=== PATIENT | male | born 1950 | race Caucasian/White ===

== ENCOUNTER → 2020-04-20 | Outpatient (CLI) | payer MEDICARE, OTHER ==
[~2020-04-20] MED LIST: ALDACTONE25 MG PO; ASPI81CH; ASPI81CH PO; ASPI81EC PO; BACL20; BACL20 PO; BETASERON; BRIM.15SO; C COMPLEX1000 M1 PO; CHOL10002 PO; CLON.5; CLON.5 PO; COLACE100 MG PO; CYAN100 PO; CYAN1000; DIPATR PO; DORZOPSO BOTHEYES; DOXY100 PO; ESCI10; ESCI10 PO; EZET10-20 PO; FENO145 PO; FENO160 PO; FENO54 PO; FERGLU300; FERR325; FLUO.1OPO BOTHEYES; FLUO.1OPSO; FURO20 PO; GEMF600; GLUC500; GLUC500 PO; GLUCHON; HYDCHL25 PO; HYDCHL50; HYOS0.375T; HYOS0.375T PO; IRBE150 PO; LATANOPROST1 GM BOTHEYES; LEVSOD100 PO; LEVSOD125 PO; LEVSOD150; LIOT25 PO; METHYLPHENIDATE10 M5 PO; METPHE20; METPHE20 PO; MINO50 PO; NEBI5 PO; OCREVUS; OMEP20ER PO; OXYC5 PO; POTCHL20ER; PROBIOTIC1 EAC1 PO; PROM25 PO; RANI150; ROSI4; TECFIDERA240 MG PO; TIMDOROPSO BOTHEYES; VALS80; VALS80 PO; VYTORIN; Vitamin D2000 UNIT PO; [UNRECOGNIZED DRUG - OTHER]; [UNRECOGNIZED DRUG - REMARK]
[2020-04-20 15:17] LABS: Appearance, Urine Clear (Clear); Bilirubin, Urine Neg (Neg); Blood, Urine Neg (Neg); Color, Urine Yellow (P-Yellow); Glucose Qualitative, Urine Neg (Neg); Ketones, Urine Neg (Neg); Leukocyte Esterase, Urine Neg (Neg); Nitrite, Urine Neg (Neg); Protein, Urine Neg (Neg); Urobilinogen, Urine NORM (Normal)
== END | disposition home or self-care (01) ==
LOC: LAB 10:15 → LAB SHORT 10:15 → LAB FUT 04-20 09:50
PROVIDERS: Internal Medicine
DX: R35.0 Frequency of micturition (principal)
CPT/HCPCS: 81003

== ENCOUNTER 2020-04-21 13:04 | Day surgery (SDC) | payer MEDICARE, OTHER ==
[~2020-04-21 13:04] MED LIST changes: -ALDACTONE25 MG PO; -C COMPLEX1000 M1 PO; -COLACE100 MG PO; -FURO20 PO; -IRBE150 PO; -METHYLPHENIDATE10 M5 PO; -OCREVUS; -OMEP20ER PO
[2020-04-21] MEDS ORDERED: ALDACTONE25 MG PO (15:08)
[2020-04-21] MEDS ORDERED: FURO20 PO (15:08)
[2020-04-21] MEDS ORDERED: IRBE150 PO (15:09)
[2020-04-21] MEDS ORDERED: METHYLPHENIDATE10 M5 PO (15:09)
[2020-04-21] MEDS ORDERED: OCREVUS (15:10)
[2020-04-21] MEDS ORDERED: OMEP20ER PO (15:11)
[2020-04-21] MEDS ORDERED: C COMPLEX1000 M1 PO (15:11)
[2020-04-21] MEDS ORDERED: COLACE100 MG PO (15:12)
--- NOTE | 2020-04-21 15:14 | NUR ---
PT VOIDED 200 ML URINE. REPORTS FREQUENCY AT NIGHT.
--- NOTE | 2020-04-21 15:20 | NUR ---
RESULTS FROM PRE AND PVR FAXED TO DR. WOODSON'S OFFICE.
[2020-04-23] MEDS ORDERED: NEBI5 PO (00:54)
[2020-04-23] MEDS ORDERED: TIMOLOL 0.5%-DO10 ML OP (00:55)
[2020-04-23] MEDS ORDERED: FAMO20 PO (00:56)
[2020-04-23] MEDS ORDERED: LATA.005SO (00:58)
[2020-04-23] MEDS ORDERED: METPHE20 PO (00:59)
[2020-04-23] MEDS ORDERED: AMLO5 PO (01:00)
[2020-04-23] MEDS ORDERED: DIAZ10 (01:01)
[2020-04-23] MEDS ORDERED: LOPE2C (01:01)
== END 2020-04-21 14:45 | disposition home or self-care (01) ==
LOC: ATC 13:04
DX: R35.0 Frequency of micturition (principal); I10 Essential (primary) hypertension; F32.9 Major depressive disorder, single episode, unspecified; R19.7 Diarrhea, unspecified; E03.9 Hypothyroidism, unspecified; E87.1 Hypo-osmolality and hyponatremia; E55.9 Vitamin D deficiency, unspecified; R73.9 Hyperglycemia, unspecified; G35 Multiple sclerosis; Z88.1 Allergy status to other antibiotic agents; Z88.8 Allergy status to other drugs, medicaments and biological substances; Z79.899 Other long term (current) drug therapy
CPT/HCPCS: 51798

== ENCOUNTER → 2020-05-03 | Outpatient (CLI) | payer MEDICARE, OTHER ==
[~2020-05-03] MED LIST changes: +ALDACTONE25 MG PO; +AMLO5 PO; +C COMPLEX1000 M1 PO; +COLACE100 MG PO; +DIAZ10; +FAMO20 PO; +FURO20 PO; +IRBE150 PO; +LATA.005SO; +LOPE2C; +METHYLPHENIDATE10 M5 PO; +OCREVUS; +OMEP20ER PO; +TIMOLOL 0.5%-DO10 ML OP
[2020-05-03 17:14] LABS: Anion Gap 5 mmol/L (6-16); Blood Urea Nitrogen 21 mg/dL (8-24); Bun/Creatinine Ratio 26.9 (12.0-20.0); CO2, Blood 27 mmol/L (21-32); Calcium, Blood 9.1 mg/dL (8.5-10.1); Chloride, Blood 108 mmol/L (98-108); Creatinine, Blood 0.78 mg/dL (0.60-1.20); Glomerular Filtration Rate >60 (60-); Glucose, Blood 83 mg/dL (70-99); Potassium, Blood 4.3 mmol/L (3.5-5.5); Sodium, Blood 140 mmol/L (136-145)
== END | disposition home or self-care (01) ==
LOC: LAB 15:06 → LAB SHORT 15:06
PROVIDERS: Internal Medicine
DX: Z51.81 Encounter for therapeutic drug level monitoring (principal); Z79.899 Other long term (current) drug therapy
CPT/HCPCS: 80048

== ENCOUNTER 2020-05-24 11:32 | Inpatient (IN) | payer MEDICARE, OTHER ==
[~2020-05-24] VITALS: Ht 182.9 cm; Wt 105.3 kg
[2020-05-24] MEDS ORDERED: Aspir 8181 MG PO (12:03)
[2020-05-24] MEDS ORDERED: METPHE10 PO (12:03)
[2020-05-24] MEDS ORDERED: C COMPLEX1000 M1 PO (12:04)
[2020-05-24] MEDS ORDERED: IRBE150 PO (12:04)
[2020-05-24] MEDS ORDERED: Vitamin B Comple1 EA PO (12:06)
[2020-05-24] MEDS ORDERED: BACL20 PO (12:07)
[2020-05-24] MEDS ORDERED: NEBI10 PO (12:07)
[2020-05-24] MEDS ORDERED: Bentyl10 MG PO (12:08)
[2020-05-24] MEDS ORDERED: DOXY100 PO (12:08)
[2020-05-24] MEDS ORDERED: OMEP20ER PO (12:11)
[2020-05-24] MEDS ORDERED: FAMO20 PO (12:11)
[2020-05-24] MEDS ORDERED: FEROSUL325 M1 PO (12:13)
[2020-05-24] MEDS ORDERED: GLUCOSAMINE-CH1 EAC7 PO (12:15)
[2020-05-24] MEDS ORDERED: LIOT25 PO (12:16)
[2020-05-24] MEDS ORDERED: LEVSOD25 PO (12:16)
[2020-05-24] MEDS ORDERED: LATA.005SO BOTHEYES (12:16)
[2020-05-24] MEDS ORDERED: LEVSOD100 PO (12:18)
[2020-05-24] MEDS ORDERED: METHYLPHENIDATE20 M4 PO (12:18)
[2020-05-24] MEDS ORDERED: ESCI10 PO (12:18)
[2020-05-24] MEDS ORDERED: AMLO5 PO (12:19)
[2020-05-24] MEDS ORDERED: VITAMIN D325 MC3 PO (12:19)
[2020-05-24] MEDS ORDERED: SPIR25 PO (12:19)
[2020-05-24] MEDS ORDERED: FURO40 PO (12:19)
[2020-05-24] MEDS ORDERED: LOPE2C PO (12:21)
[2020-05-24] MEDS ORDERED: PROBIOTIC PO (12:21)
[2020-05-24] MEDS ORDERED: DIAZ10 PO (12:22)
[2020-05-24 12:30] LABS: BASOPHILS ABSOLUTE AUTO 0.14 K/mm3 (0.00-0.23); BASOPHILS PERCENT AUTO 0 % (0-2); EOSINOPHILS ABSOLUTE AUTO 0.12 K/mm3 (0.00-0.68); EOSINOPHILS PERCENT AUTO 0 % (0-6); Hematocrit 33.2 % (37.0-53.0); Hemoglobin 10.7 g/dL (13.5-17.5); IMMATURE GRAN ABSOLUTE AUTO 0.75 K/mm3 (0.00-0.10); IMMATURE GRAN PERCENT AUTO 2 % (0-1); LYMPHOCYTES ABSOLUTE AUTO 1.98 K/mm3 (0.84-5.20); LYMPHOCYTES PERCENT AUTO 5 % (21-46); MONOCYTES ABSOLUTE AUTO 4.94 K/mm3 (0.16-1.47); MONOCYTES PERCENT AUTO 13 % (4-13); Mean Corpuscular HGB 31.3 pg (26.0-34.0); Mean Corpuscular HGB Conc 32.2 g/dL (31.5-36.5); Mean Corpuscular Volume 97 fL (80-100); NEUTROPHILS ABSOLUTE AUTO 30.29 K/mm3 (1.96-9.15); NEUTROPHILS PERCENT AUTO 79 % (41-73); Platelet Count 251 K/mm3 (150-400); RDW Coefficient Variation 13.6 % (11.7-14.2); RDW Standard Deviation 48.6 fL (35.1-46.3); Red Blood Cell Count 3.42 M/mm3 (4.30-5.90); White Blood Cell Count 38.22 K/mm3 (4.00-11.30)
[2020-05-24 12:34] LABS: Source, Urine Catheter
[2020-05-24 12:42] LABS: Bilirubin, Urine Neg (Neg); Blood, Urine 1+ (Neg); Glucose Qualitative, Urine Neg (Neg); Ketones, Urine Neg (Neg); Leukocyte Esterase, Urine 2+ (Neg); Nitrite, Urine Neg (Neg); Protein, Urine Neg (Neg); Specific Gravity, Urine 1.015 (1.003-1.022); Urobilinogen, Urine NORM (Normal)
[2020-05-24 12:50] LABS: Alanine Aminotransfer (ALT/SGP 21 U/L (12-78); Albumin, Blood 3.3 g/dL (3.4-5.0); Albumin/Globulin Ratio 0.8 (0.8-1.8); Alk Phos 98 U/L (50-136); Anion Gap 7 mmol/L (6-16); Aspartate Aminotrans (AST/SGOT 11 U/L (12-37); Bilirubin, Total 0.6 mg/dL (0.1-1.0); Blood Urea Nitrogen 33 mg/dL (8-24); Bun/Creatinine Ratio 28.7 (12.0-20.0); CO2, Blood 23 mmol/L (21-32); Calcium, Blood 9.2 mg/dL (8.5-10.1); Chloride, Blood 103 mmol/L (98-108); Creatinine, Blood 1.15 mg/dL (0.60-1.20); Glomerular Filtration Rate >60 (60-); Glucose, Blood 94 mg/dL (70-99); Potassium, Blood 4.2 mmol/L (3.5-5.5); Sodium, Blood 133 mmol/L (136-145); Total Protein, Blood 7.3 g/dL (6.4-8.2)
[2020-05-24 12:53] LABS: Appearance, Urine Clear (Clear); Color, Urine Yellow (P-Yellow)
[2020-05-24 12:59] LABS: Bacteria Few /hpf; Squamous Epithelial Cells Rare /hpf (Few)
[2020-05-24] MEDS ORDERED: TIMO.25OPS BOTHEYES (13:09)
[2020-05-24] MEDS ORDERED: EZETIMIBE-SIMV1 EAC4 PO (13:17)
--- NOTE | 2020-05-24 19:16 | NUR ---
SHIFT SUMMARY: PATIENT ADMIT FROM ED THIS SHIFT. PT A&O; CALM AND COOPERATIVE WITH CARE. PT HX MS; BEDBOUND; TURN Q2H; SKIN C/D/I; REDDENED COCCYX. CHRONIC INDWELLING GUNN; CHANGED IN ED; PATENT & DRAINING. REHYDRATION & IB ABX CONTINUING. REPORT GIVEN TO ONCOMING RN.
--- NOTE | 2020-05-24 21:38 | NUR ---
PHYSICIAN NOTIFIED PHYSICIAN NOTIFIED OF PT'S HYPOTENISIVE BP READINGS OF 97/49 AND 87/51. PHYSICIAN ORDERED 1 L FLUID BOLUS OF LR.
--- NOTE | 2020-05-24 21:56 | NUR ---
PHYSICIAN NOTIFIED PHYSICIAN NOTIFIED OF PT'S HYPOTENSIVE READING AT 90/58, MAP OF 69. PHYSICIAN ORDERED TO INCREASE LR TO 125 ML/HR AND TO KEEP MAP ABOVE 65. WILL NOTIFY PHYSICIAN IF MAP FALLS BELOW 65.
[2020-05-25 05:13] LABS: BASOPHILS ABSOLUTE AUTO 0.08 K/mm3 (0.00-0.23); BASOPHILS PERCENT AUTO 0 % (0-2); EOSINOPHILS PERCENT AUTO 0 % (0-6); Hematocrit 27.7 % (37.0-53.0); Hemoglobin 9.1 g/dL (13.5-17.5); IMMATURE GRAN ABSOLUTE AUTO 0.38 K/mm3 (0.00-0.10); IMMATURE GRAN PERCENT AUTO 1 % (0-1); LYMPHOCYTES ABSOLUTE AUTO 1.49 K/mm3 (0.84-5.20); LYMPHOCYTES PERCENT AUTO 5 % (21-46); MONOCYTES ABSOLUTE AUTO 2.86 K/mm3 (0.16-1.47); MONOCYTES PERCENT AUTO 10 % (4-13); Mean Corpuscular HGB Conc 32.9 g/dL (31.5-36.5); Mean Corpuscular Volume 98 fL (80-100); Mean Platelet Volume 10.1 fL (9.1-12.4); NEUTROPHILS ABSOLUTE AUTO 25.26 K/mm3 (1.96-9.15); NEUTROPHILS PERCENT AUTO 84 % (41-73); Platelet Count 219 K/mm3 (150-400); RDW Coefficient Variation 13.6 % (11.7-14.2); RDW Standard Deviation 49.3 fL (35.1-46.3); Red Blood Cell Count 2.84 M/mm3 (4.30-5.90); White Blood Cell Count 30.17 K/mm3 (4.00-11.30)
[2020-05-25 05:46] LABS: Anion Gap 6 mmol/L (6-16); Blood Urea Nitrogen 27 mg/dL (8-24); CO2, Blood 22 mmol/L (21-32); Calcium, Blood 8.3 mg/dL (8.5-10.1); Chloride, Blood 108 mmol/L (98-108); Creatinine, Blood 0.93 mg/dL (0.60-1.20); Glomerular Filtration Rate >60 (60-); Glucose, Blood 84 mg/dL (70-99); Sodium, Blood 136 mmol/L (136-145)
--- NOTE | 2020-05-25 06:32 | NUR ---
SHIFT SUMMARY PT ALERT AND ORIENTED. PT HYPOTENSIVE T/O SHIFT. PHYSICIAN NOTIFIED. MAP MAINTAINED ABOVE 65%. HR STABLE. OXYGEN SATURATION MAINTAINED ABOVE 92% ON RA. PT TURNED Q 2 HRS. PT SLEPT T/O SHIFT. PT REPORTS NO CP OR PRESSURE. WILL CONTINUE TO MONITOR UNTIL REPORT GIVEN TO DAYSHIFT RN.
--- NOTE | 2020-05-25 16:58 | NUR ---
SHIFT SUMMARY PT A&Ox4; CALM AND COOPERATIVE WITH CARE. PT RESTING IN BED DURING SHIFT. ENCOURAGED PT TO DO LEG LIFTS AND ELVATED BLE IN BED. PT DENIES PAIN, CHEST PAIN, SOB, NAUSEA AND DIZZINESS. PT RECEIVING IV ANTIBIOTICS. BP STABLE, OTHER VSS. NO OTHER ACUTE CHANGES NOTED. WILL COTNINUE TO MONITOR UNTIL REPORT GIVEN TO ONCOMING RN.
--- NOTE | 2020-05-26 05:44 | NUR ---
SHIFT SUMMARY NO ACUTE CHANGES THIS SHIFT. PT A&OX4. PT IS COOPERATIVE AND PLEASANT. SP02>92% ON RA. TELEMETRY READS SR, HR 90'S. PT'S , HILARIO, CALLED TO CHECK ON HIM AT APPROX 2100. SHE STATED SHE WANTED TO CHECK ON HIS BP, HE HAD A "SOFT" BP THE PREVIOUS NIGHT, SHE STATED. INFORMED PT'S OF MOST RECENT BP, SEE VITALS. Q2H TURNS. GUNN DRAINING CLEAR YELLOW URINE TO GRAVITY. LR INFUSING PER EMAR. CALL LIGHT IN REACH. WILL CONTINUE TO MONITOR.
[2020-05-26 08:36] LABS: Hematocrit 30.1 % (37.0-53.0); Mean Corpuscular HGB 32.2 pg (26.0-34.0); Mean Corpuscular HGB Conc 33.2 g/dL (31.5-36.5); Mean Corpuscular Volume 97 fL (80-100); Mean Platelet Volume 9.8 fL (9.1-12.4); Platelet Count 257 K/mm3 (150-400); RDW Coefficient Variation 13.6 % (11.7-14.2); RDW Standard Deviation 47.9 fL (35.1-46.3); Red Blood Cell Count 3.11 M/mm3 (4.30-5.90)
--- NOTE | 2020-05-26 17:58 | NUR ---
SHIFT SUMMARY PT A&Ox4; CALM AND COOPERATIVE WITH CARE. PT RESTING IN BED DURING SHIFT. UP TO RECLINER VIA LIFT FOR DINNER. PHYSICAL THERAPY WORKING WITH PATIENT TODAY; UNABLE TO STAND; NOTIFIED DR CHAMBERS AND CARE MANANGEMENT OF NEED FOR FELICIA LIFT AT HOME. PT RECEIVING IV ANTIBIOTICS. BP DOWN THIS AFTENROON, BUT APPEARS TO BE TRENDING UP. OTHER VSS. NO OTHER ACUTE CHANGES NOTED. WILL CONTINUE TO MONITOR UNITL REPORT GIVEN TO ONCOMING RN.
--- NOTE | 2020-05-26 19:49 | NUR ---
CARE ASSUMPTION PT A&OX4. COOPERATIVE AND PLEASANT. SP02>92% ON RA. MEDICAL STATUS, NO TELEMETRY. VSS. PT WAS UP IN CHAIR UPON CARE ASSUMPTION. FELICIA LIFT TRANSFER PT FROM CHAIR TO BED. LEFT HAND EDEMA, ELEVATED ON PILLOW. PT STATES NO PAIN. CALL LIGHT IN REACH. WILL CONTINUE TO MONITOR.
[2020-05-27 04:19] LABS: BASOPHILS ABSOLUTE AUTO 0.09 K/mm3 (0.00-0.23); BASOPHILS PERCENT AUTO 1 % (0-2); EOSINOPHILS ABSOLUTE AUTO 0.28 K/mm3 (0.00-0.68); EOSINOPHILS PERCENT AUTO 1 % (0-6); Hematocrit 29.5 % (37.0-53.0); Hemoglobin 9.8 g/dL (13.5-17.5); IMMATURE GRAN ABSOLUTE AUTO 0.21 K/mm3 (0.00-0.10); IMMATURE GRAN PERCENT AUTO 1 % (0-1); LYMPHOCYTES ABSOLUTE AUTO 2.12 K/mm3 (0.84-5.20); LYMPHOCYTES PERCENT AUTO 11 % (21-46); MONOCYTES ABSOLUTE AUTO 2.45 K/mm3 (0.16-1.47); MONOCYTES PERCENT AUTO 13 % (4-13); Mean Corpuscular HGB Conc 33.2 g/dL (31.5-36.5); Mean Corpuscular Volume 96 fL (80-100); Mean Platelet Volume 9.5 fL (9.1-12.4); NEUTROPHILS ABSOLUTE AUTO 14.41 K/mm3 (1.96-9.15); NEUTROPHILS PERCENT AUTO 74 % (41-73); Platelet Count 280 K/mm3 (150-400); RDW Coefficient Variation 13.2 % (11.7-14.2); RDW Standard Deviation 46.8 fL (35.1-46.3); Red Blood Cell Count 3.06 M/mm3 (4.30-5.90); White Blood Cell Count 19.56 K/mm3 (4.00-11.30)
[2020-05-27 04:38] LABS: Anion Gap 5 mmol/L (6-16); Blood Urea Nitrogen 17 mg/dL (8-24); Bun/Creatinine Ratio 25.1 (12.0-20.0); CO2, Blood 27 mmol/L (21-32); Calcium, Blood 9.1 mg/dL (8.5-10.1); Chloride, Blood 106 mmol/L (98-108); Creatinine, Blood 0.68 mg/dL (0.60-1.20); Glomerular Filtration Rate >60 (60-); Glucose, Blood 84 mg/dL (70-99); Potassium, Blood 4.2 mmol/L (3.5-5.5); Sodium, Blood 138 mmol/L (136-145)
--- NOTE | 2020-05-27 05:25 | NUR ---
SHIFT SUMMARY NO ACUTE CHANGES THIS SHIFT. PT A&OX4. COOPERATIVE AND PLEASANT. SP02>92% ON RA. TELEMETRY READS SR, HR 60'S-70'S. VSS. Q2H TURNS. GUNN CATHETER DRAINING YELLOW CLEAR URINE. LEFT HAND EDEMA, ELEVATED ON PILLOW. PT STATES NO PAIN. PT'S CALLED DURING SHIFT TO GET UPDATE ON PT'S BP. SHE WILL BE VISITING IN THE MORNING TO BE TAUGHT HOW TO USE A LIFT, WHICH THEY JUST GOT AT HOME TO ACCOMODATE PT NEEDS.
--- NOTE | 2020-05-27 08:00 | NUR ---
pt up to chair via lift for breakfast, in room, pt will be moving to medical floor this am, states he hasn't had a bm in a number of days, will give miralax and prune juice if needed. will give recieving nurse report, size painter is going to get him back to bed for transfer to medical. call light in reach.
--- NOTE | 2020-05-27 09:55 | NUR ---
report was given to recieving nurse, pt leaving for medical floor via bed with all belongings.
--- NOTE | 2020-05-27 14:41 | NUR ---
Last BM 05/23. Patient's would like for patient to have a bowel movement before discharge. Discussed with Dr. Francis, verbal order received for one time dose of 20 gm lactulose and daily PRN suppository of dulcolax for constipation.
[2020-05-27] MEDS ORDERED: DOCUZEN 8.6-501 EACH PO (17:13)
[2020-05-27] MEDS ORDERED: MIRALAX17 GM PO (17:14)
[2020-05-27] MEDS ORDERED: CEFDINIR300 M1 PO (17:16)
--- NOTE | 2020-05-27 18:14 | NUR ---
Discharge Summary A/Ox3, pleasant and cooperative with care. Received report from PCU-RN this morning, patient arrived via bed with Sanjana at bedside. Denies pain, nausea. Calls appropriately for needs. Patient had a bowel movement today and had education RE operating vander lift and sling. did hands on demonstration successfully after this RN and TOP PRINTING PRESS OPERATOR explained/showed how sling/lift was operated. Questions were answered to her satisfaction. Discharging to home with HH. Meds faxed to preferred pharmacy. IV removed, WNL. Reviewed discharge paperwork with patient, no questions at this time. Copy has been provided. [facility] to transport via [facility], and patient will pay out of pocket for transportation. reduction plant supervisor time arranged for [id number], and patient aware. Personal belonging taken home by , home medication given to patient along with discharge paperwork.
== END 2020-05-27 19:15 | disposition home health service (06) | DRG 698 ==
LOC: ER 11:32 → PCU 11:33 → MEDS 05-27 09:59
PROVIDERS: Emergency Medicine; ADMIT Internal Medicine
DX: T83.511A Infection and inflammatory reaction due to indwelling urethral catheter, initial encounter (principal); A41.9 Sepsis, unspecified organism; R53.2 Functional quadriplegia; N39.0 Urinary tract infection, site not specified; G35 Multiple sclerosis; G62.9 Polyneuropathy, unspecified; H40.9 Unspecified glaucoma; Z96.642 Presence of left artificial hip joint; E03.9 Hypothyroidism, unspecified; E86.1 Hypovolemia; E86.0 Dehydration
CPT/HCPCS: 36415; 51702; 71045; 80048; 80053; 81001; 83605; 84145; 84443; 85025; 85027; 87040; 87086; 96361-59; 96365-59; 96366-59; 97110; 97112; 97162; 97530; 99285-25; G0008; J0696; J7030; J7120; Q2038

== ENCOUNTER → 2020-06-07 | Outpatient (CLI) | payer MEDICARE, OTHER ==
[~2020-06-07] MED LIST changes: +Aspir 8181 MG PO; +Bentyl10 MG PO; +CEFDINIR300 M1 PO; +DIAZ10 PO; +DOCUZEN 8.6-501 EACH PO; +EZETIMIBE-SIMV1 EAC4 PO; +FEROSUL325 M1 PO; +FURO40 PO; +GLUCOSAMINE-CH1 EAC7 PO; +LATA.005SO BOTHEYES; +LEVSOD25 PO; +LOPE2C PO; +METHYLPHENIDATE20 M4 PO; +METPHE10 PO; +MIRALAX17 GM PO; +NEBI10 PO; +PROBIOTIC PO; +SPIR25 PO; +TIMO.25OPS BOTHEYES; +VITAMIN D325 MC3 PO; +Vitamin B Comple1 EA PO
[2020-06-07 17:48] LABS: BASOPHILS ABSOLUTE AUTO 0.07 K/mm3 (0.00-0.23); BASOPHILS PERCENT AUTO 1 % (0-2); EOSINOPHILS ABSOLUTE AUTO 0.43 K/mm3 (0.00-0.68); EOSINOPHILS PERCENT AUTO 4 % (0-6); Hematocrit 34.6 % (37.0-53.0); Hemoglobin 11.2 g/dL (13.5-17.5); IMMATURE GRAN ABSOLUTE AUTO 0.05 K/mm3 (0.00-0.10); IMMATURE GRAN PERCENT AUTO 0 % (0-1); LYMPHOCYTES ABSOLUTE AUTO 2.12 K/mm3 (0.84-5.20); LYMPHOCYTES PERCENT AUTO 18 % (21-46); MONOCYTES ABSOLUTE AUTO 1.73 K/mm3 (0.16-1.47); MONOCYTES PERCENT AUTO 15 % (4-13); Mean Corpuscular HGB 31.5 pg (26.0-34.0); Mean Corpuscular HGB Conc 32.4 g/dL (31.5-36.5); Mean Corpuscular Volume 97 fL (80-100); NEUTROPHILS ABSOLUTE AUTO 7.44 K/mm3 (1.96-9.15); NEUTROPHILS PERCENT AUTO 63 % (41-73); Platelet Count 355 K/mm3 (150-400); RDW Coefficient Variation 13.1 % (11.7-14.2); RDW Standard Deviation 46.5 fL (35.1-46.3); Red Blood Cell Count 3.56 M/mm3 (4.30-5.90); White Blood Cell Count 11.84 K/mm3 (4.00-11.30)
[2020-06-07 21:51] LABS: Anion Gap 6 mmol/L (6-16); Blood Urea Nitrogen 18 mg/dL (8-24); Bun/Creatinine Ratio 26.2 (12.0-20.0); CO2, Blood 28 mmol/L (21-32); Calcium, Blood 8.9 mg/dL (8.5-10.1); Chloride, Blood 105 mmol/L (98-108); Creatinine, Blood 0.69 mg/dL (0.60-1.20); Glomerular Filtration Rate >60 (60-); Glucose, Blood 85 mg/dL (70-99); Potassium, Blood 4.2 mmol/L (3.5-5.5); Sodium, Blood 139 mmol/L (136-145)
== END | disposition home or self-care (01) ==
LOC: LAB 14:45 → LAB SHORT 14:45
PROVIDERS: Internal Medicine
DX: I10 Essential (primary) hypertension (principal)
CPT/HCPCS: 80048; 85025

== ENCOUNTER 2020-06-22 18:47 | Inpatient (IN) | payer MEDICARE, OTHER ==
[~2020-06-22] VITALS: Ht 182.9 cm; Wt 106.6 kg
[~2020-06-22 18:47] MED LIST changes: +VITAMIN D31000 UNI1 PO; -VITAMIN D325 MC3 PO
[2020-06-22 20:14] LABS: BASOPHILS ABSOLUTE AUTO 0.07 K/mm3 (0.00-0.23); BASOPHILS PERCENT AUTO 0 % (0-2); EOSINOPHILS ABSOLUTE AUTO 0.22 K/mm3 (0.00-0.68); EOSINOPHILS PERCENT AUTO 1 % (0-6); Hematocrit 35.8 % (37.0-53.0); Hemoglobin 11.8 g/dL (13.5-17.5); IMMATURE GRAN ABSOLUTE AUTO 0.13 K/mm3 (0.00-0.10); IMMATURE GRAN PERCENT AUTO 1 % (0-1); LYMPHOCYTES ABSOLUTE AUTO 1.23 K/mm3 (0.84-5.20); LYMPHOCYTES PERCENT AUTO 6 % (21-46); MONOCYTES ABSOLUTE AUTO 2.01 K/mm3 (0.16-1.47); MONOCYTES PERCENT AUTO 9 % (4-13); Mean Corpuscular HGB 31.6 pg (26.0-34.0); Mean Corpuscular Volume 96 fL (80-100); Mean Platelet Volume 9.9 fL (9.1-12.4); NEUTROPHILS ABSOLUTE AUTO 18.07 K/mm3 (1.96-9.15); NEUTROPHILS PERCENT AUTO 83 % (41-73); Platelet Count 244 K/mm3 (150-400); RDW Standard Deviation 46.1 fL (35.1-46.3); Red Blood Cell Count 3.73 M/mm3 (4.30-5.90); White Blood Cell Count 21.73 K/mm3 (4.00-11.30)
[2020-06-22 20:15] LABS: Source, Urine Voided
[2020-06-22 20:26] LABS: Appearance, Urine Clear (Clear); Bilirubin, Urine Neg (Neg); Blood, Urine 1+ (Neg); Color, Urine Yellow (P-Yellow); Glucose Qualitative, Urine Neg (Neg); Ketones, Urine Neg (Neg); Leukocyte Esterase, Urine 2+ (Neg); Nitrite, Urine Pos (Neg); Protein, Urine Neg (Neg); Urobilinogen, Urine NORM (Normal); pH, Urine 6.5 (5.0-8.0)
[2020-06-22 20:27] LABS: Alanine Aminotransfer (ALT/SGP 34 U/L (12-78); Albumin, Blood 3.4 g/dL (3.4-5.0); Alk Phos 102 U/L (50-136); Anion Gap 8 mmol/L (6-16); Aspartate Aminotrans (AST/SGOT 17 U/L (12-37); Bilirubin, Total 0.3 mg/dL (0.1-1.0); Blood Urea Nitrogen 11 mg/dL (8-24); Bun/Creatinine Ratio 20.4 (12.0-20.0); CO2, Blood 24 mmol/L (21-32); Chloride, Blood 101 mmol/L (98-108); Creatinine, Blood 0.54 mg/dL (0.60-1.20); Globulin, Blood 3.5 g/dL (2.2-4.0); Glomerular Filtration Rate >60 (60-); Glucose, Blood 104 mg/dL (70-99); Potassium, Blood 3.9 mmol/L (3.5-5.5); Sodium, Blood 133 mmol/L (136-145); Total Protein, Blood 6.9 g/dL (6.4-8.2)
[2020-06-22 20:34] LABS: Bacteria Few /hpf; Red Blood Cells, Urine 0-2 /hpf (0-2); Squamous Epithelial Cells Not Seen /hpf (Few)
[2020-06-22] MEDS ORDERED: METPHE20CR PO (20:47)
[2020-06-22] MEDS ORDERED: Ritalin10 MG PO (20:48)
[2020-06-22] MEDS ORDERED: SPIRONOLACTONE25 MG PO (20:49)
[2020-06-22] MEDS ORDERED: LIOT25 PO (20:49)
[2020-06-22] MEDS ORDERED: FUROSEMIDE40 MG PO (20:50)
[2020-06-22] MEDS ORDERED: SYNTHROID100 MC4 PO (20:50)
[2020-06-22] MEDS ORDERED: AMLODIPINE BESYL5 MG PO (20:50)
[2020-06-22] MEDS ORDERED: ESCI10 PO (20:50)
[2020-06-22] MEDS ORDERED: AVAPRO150 MG PO (20:51)
[2020-06-22] MEDS ORDERED: FERSU300 PO (20:54)
[2020-06-22] MEDS ORDERED: ASCO500 PO (20:54)
--- NOTE | 2020-06-23 00:33 | NUR ---
69 YR OLD MALE ADMITTED TO FLOOR FROM THE ED. DX OF SEPSIS AND UTI. HX OF MS, VOICED DECREASED SENSATION IN MOST OF HIS BODY AND IS BEDREST. ORIENTED TO USE OF CALL LIGHT. CALL LIGHT IN REACH. CHRONIC GUNN, CHANGED IN THE ED. DRAINING YELLOW/LOLIS. REPOSITIONED.
[2020-06-23 00:39] LABS: Influenza A, PCR Negative (NEGATIVE); Influenza B, PCR Negative (NEGATIVE); Resp Syncytial Virus, PCR Negative (NEGATIVE); SARS-Cov-2 (COVID-19) PCR, MMC Negative (NEGATIVE)
--- NOTE | 2020-06-23 05:14 | NUR ---
SHIFT SUMMARY ADMITTED EARLIER IN THE SHIFT. HAS BEEN RESTING QUIETLY WITH FEW INTERRUPTIONS. FOLE DRAINING CLEAR LOLIS. SLIGHT FEVER CONTINUES. TOLERATING PO FLUIDS. CALLED, VOICED SHE INTENDED TO VISIT LATER TODAY, PT NOTIFIED. CALL LIGHT IN REACH
[2020-06-23 05:24] LABS: Hematocrit 34.1 % (37.0-53.0); Mean Corpuscular HGB 31.2 pg (26.0-34.0); Mean Corpuscular HGB Conc 32.3 g/dL (31.5-36.5); Mean Corpuscular Volume 97 fL (80-100); Mean Platelet Volume 9.8 fL (9.1-12.4); Platelet Count 236 K/mm3 (150-400); RDW Coefficient Variation 13.1 % (11.7-14.2); RDW Standard Deviation 46.5 fL (35.1-46.3); Red Blood Cell Count 3.53 M/mm3 (4.30-5.90); White Blood Cell Count 20.16 K/mm3 (4.00-11.30)
[2020-06-23 05:36] LABS: Anion Gap 6 mmol/L (6-16); Blood Urea Nitrogen 8 mg/dL (8-24); Bun/Creatinine Ratio 13.7 (12.0-20.0); CO2, Blood 27 mmol/L (21-32); Calcium, Blood 8.4 mg/dL (8.5-10.1); Chloride, Blood 105 mmol/L (98-108); Creatinine, Blood 0.59 mg/dL (0.60-1.20); Glomerular Filtration Rate >60 (60-); Glucose, Blood 99 mg/dL (70-99); Potassium, Blood 3.6 mmol/L (3.5-5.5); Sodium, Blood 138 mmol/L (136-145)
--- NOTE | 2020-06-23 18:26 | NUR ---
SHIFT SUMMARY PT ABLE TO FEED HIMSELF BREAKFAST THIS MORNING. REPORTED HE WASN'T ABLE TO WALK LAST NIGHT PRIOR TO COMING TO THE HOSPITAL. PT ABLE TO STAND AND PIVOT TO BSC WITH 2 ASSIST PRIOR TO LUNCH. AFTERWARD WALKED A FEW STEPS TO THE RECLINER AND HAS SAT IN RECLINER FOR THE AFTERNOON. IN TO VISIT THIS EVENIING. BROUGHT PTS FAST ACTING RITALIN AND NOT HIS LONG ACTING RITALIN. SHE WILL BRING IT TOMORROW. PT REPORTS FEELING BETTER TODAY.
--- NOTE | 2020-06-23 19:30 | NUR ---
ASSUMED CARE. AOX3, COOPERATIVE. DENIES PAIN OR DISCOMFORT. VS WNL. AFEBRILE. WATCHING TV. REPOSITIONED ON LEFT SIDE. STATES HE HAS HEALING ULCER ON BUTTOCKS, DRESSING IS COVERING IT PLACED TODAY. DENIES ANY OTHER CONCERNS AT THIS TIME. EYES ARE SLIGHTLY RED, MINIMAL DRAINAGE. CALL LIGHT IN REACH.
--- NOTE | 2020-06-24 04:25 | NUR ---
SHIFT SUMMARY: AOX3, SLEPT T/O NIGHT. VS WNL, AFEBRILE. CATHETER PATENT AND DRAINING YELLOW URINE ALL NIGHT. DENIED PAIN OR DISCOMFORT. REPOSITIONED OFF BOTTOM. NO OTHER CHANGES TO REPORT THIS SHIFT. PLAN: FINISH IV ANTIBOTIC TREATMENT THEN DC HOME WITH .
[2020-06-24 04:55] LABS: BASOPHILS ABSOLUTE AUTO 0.06 K/mm3 (0.00-0.23); BASOPHILS PERCENT AUTO 1 % (0-2); EOSINOPHILS ABSOLUTE AUTO 0.52 K/mm3 (0.00-0.68); EOSINOPHILS PERCENT AUTO 4 % (0-6); Hematocrit 32.9 % (37.0-53.0); Hemoglobin 10.6 g/dL (13.5-17.5); IMMATURE GRAN ABSOLUTE AUTO 0.03 K/mm3 (0.00-0.10); IMMATURE GRAN PERCENT AUTO 0 % (0-1); LYMPHOCYTES ABSOLUTE AUTO 2.16 K/mm3 (0.84-5.20); LYMPHOCYTES PERCENT AUTO 17 % (21-46); MONOCYTES ABSOLUTE AUTO 1.62 K/mm3 (0.16-1.47); MONOCYTES PERCENT AUTO 13 % (4-13); Mean Corpuscular HGB 31.4 pg (26.0-34.0); Mean Corpuscular HGB Conc 32.2 g/dL (31.5-36.5); Mean Corpuscular Volume 97 fL (80-100); Mean Platelet Volume 9.4 fL (9.1-12.4); NEUTROPHILS ABSOLUTE AUTO 8.29 K/mm3 (1.96-9.15); NEUTROPHILS PERCENT AUTO 65 % (41-73); Platelet Count 225 K/mm3 (150-400); RDW Coefficient Variation 13.3 % (11.7-14.2); RDW Standard Deviation 47.7 fL (35.1-46.3); Red Blood Cell Count 3.38 M/mm3 (4.30-5.90); White Blood Cell Count 12.68 K/mm3 (4.00-11.30)
[2020-06-24 05:20] LABS: Anion Gap 5 mmol/L (6-16); Blood Urea Nitrogen 11 mg/dL (8-24); Bun/Creatinine Ratio 15.9 (12.0-20.0); CO2, Blood 29 mmol/L (21-32); Calcium, Blood 8.7 mg/dL (8.5-10.1); Chloride, Blood 106 mmol/L (98-108); Creatinine, Blood 0.69 mg/dL (0.60-1.20); Glomerular Filtration Rate >60 (60-); Glucose, Blood 91 mg/dL (70-99); Potassium, Blood 3.8 mmol/L (3.5-5.5); Sodium, Blood 140 mmol/L (136-145)
--- NOTE | 2020-06-24 14:09 | NUR ---
Patient is sitting on a chair and alert. Patient tells me about his M.S. and the struggles he has had with UTIs and blood clots. Patient tells me about his 25yr career at [employer], his spiritual journey and his family. Patient talks about his personal struggles. I listen empathically and provide pastoral residential youth counselor and prayer. Patient responds well and shows signs of an elevated mood.
[2020-06-24] MEDS ORDERED: Vitamin D2000 UNIT PO (14:37)
[2020-06-24] MEDS ORDERED: Acetaminophen650 M1 PO (14:38)
[2020-06-24] MEDS ORDERED: CEFP200 PO (14:40)
[2020-06-24] MEDS ORDERED: ATOR20 (14:40)
[2020-06-24] MEDS ORDERED: VISBIOME PROBI1 EACH (14:41)
--- NOTE | 2020-06-24 16:37 | NUR ---
DISCHARGE INSTRUCTIONS COMPLETED AND DISCUSSED WITH PT AND EXPRESSING UNDERSTANDING. MEDS WERE CLARIFIED WITH MD AFTER QUESTIONED BY [facility] IN TO PICK PT UP. PT ABLE TO STAND AT SIDE OF BED AND USE FWW TO TRANSFER TO W/C. TO [facility] VIA W/C.
== END 2020-06-24 16:03 | disposition home health service (06) | DRG 698 ==
LOC: ER 18:47 → MEDS 22:12 → ER 06-23 00:07 → MEDS 06-23 00:10
PROVIDERS: Emergency Medicine; Family Medicine; ADMIT Internal Medicine
DX: T83.511A Infection and inflammatory reaction due to indwelling urethral catheter, initial encounter (principal); A41.52 Sepsis due to Pseudomonas; R53.2 Functional quadriplegia; N39.0 Urinary tract infection, site not specified; E03.9 Hypothyroidism, unspecified; Z20.828 Contact with and (suspected) exposure to other viral communicable diseases; I10 Essential (primary) hypertension; G35 Multiple sclerosis; G62.9 Polyneuropathy, unspecified; E55.9 Vitamin D deficiency, unspecified; E53.8 Deficiency of other specified B group vitamins; Z96.642 Presence of left artificial hip joint
CPT/HCPCS: 0241U; 36415; 51702; 71045; 74177; 80048; 80053; 81001; 83605; 83690; 84145; 85025; 85027; 87040; 87077; 87086; 87186; 96365-59; 97110; 97116; 97162; 99285-25; A9270; J0696; J1650; J7030; Q9967

== ENCOUNTER 2020-09-28 11:31 | Emergency (ER) | payer MEDICARE, OTHER ==
[~2020-09-28] VITALS: Ht 177.8 cm; Wt 106.6 kg
[~2020-09-28 11:31] MED LIST changes: +AMLODIPINE BESYL5 MG PO; +ASCO500 PO; +ATOR20; +AVAPRO150 MG PO; +Acetaminophen650 M1 PO; +CEFP200 PO; +FERSU300 PO; +METPHE20CR PO; +Ritalin10 MG PO; +SPIRONOLACTONE25 MG PO; +SYNTHROID100 MC4 PO; +VISBIOME PROBI1 EACH
[2020-09-28 12:15] LABS: BASOPHILS ABSOLUTE AUTO 0.08 K/mm3 (0.00-0.23); BASOPHILS PERCENT AUTO 0 % (0-2); EOSINOPHILS ABSOLUTE AUTO 0.21 K/mm3 (0.00-0.68); EOSINOPHILS PERCENT AUTO 1 % (0-6); Hematocrit 39.2 % (37.0-53.0); Hemoglobin 13.2 g/dL (13.5-17.5); IMMATURE GRAN ABSOLUTE AUTO 0.14 K/mm3 (0.00-0.10); IMMATURE GRAN PERCENT AUTO 1 % (0-1); LYMPHOCYTES ABSOLUTE AUTO 1.57 K/mm3 (0.84-5.20); LYMPHOCYTES PERCENT AUTO 7 % (21-46); MONOCYTES PERCENT AUTO 10 % (4-13); Mean Corpuscular HGB 30.7 pg (26.0-34.0); Mean Corpuscular HGB Conc 33.7 g/dL (31.5-36.5); Mean Corpuscular Volume 91 fL (80-100); Mean Platelet Volume 9.8 fL (9.1-12.4); NEUTROPHILS ABSOLUTE AUTO 18.83 K/mm3 (1.96-9.15); NEUTROPHILS PERCENT AUTO 81 % (41-73); Platelet Count 248 K/mm3 (150-400); RDW Coefficient Variation 13.6 % (11.7-14.2); RDW Standard Deviation 45.5 fL (35.1-46.3); White Blood Cell Count 23.23 K/mm3 (4.00-11.30)
[2020-09-28 12:36] LABS: Alanine Aminotransfer (ALT/SGP 30 U/L (12-78); Albumin, Blood 3.4 g/dL (3.4-5.0); Albumin/Globulin Ratio 0.8 (0.8-1.8); Alk Phos 101 U/L (50-136); Anion Gap 5 mmol/L (6-16); Aspartate Aminotrans (AST/SGOT 11 U/L (12-37); Bilirubin, Total 0.8 mg/dL (0.1-1.0); Blood Urea Nitrogen 12 mg/dL (8-24); Bun/Creatinine Ratio 18.9 (12.0-20.0); CO2, Blood 30 mmol/L (21-32); Chloride, Blood 102 mmol/L (98-108); Creatinine, Blood 0.64 mg/dL (0.60-1.20); Glomerular Filtration Rate >60 (60-); Glucose, Blood 116 mg/dL (70-99); Potassium, Blood 3.7 mmol/L (3.5-5.5); Sodium, Blood 137 mmol/L (136-145); Total Protein, Blood 7.4 g/dL (6.4-8.2)
[2020-09-28 13:11] LABS: Source, Urine Catheter
[2020-09-28 13:15] LABS: Appearance, Urine Hazy (Clear); Bilirubin, Urine Neg (Neg); Blood, Urine 3+ (Neg); Color, Urine Yellow (P-Yellow); Glucose Qualitative, Urine Neg (Neg); Ketones, Urine Neg (Neg); Leukocyte Esterase, Urine 3+ (Neg); Nitrite, Urine Pos (Neg); Protein, Urine 1+ (Neg); Specific Gravity, Urine 1.015 (1.003-1.022); Urobilinogen, Urine NORM (Normal)
[2020-09-28] MEDS ORDERED: DOXYCYCLINE HY100 M1 PO (13:24)
[2020-09-28] MEDS ORDERED: GLUCOSAMINE-CH1 EAC7 (13:26)
[2020-09-28] MEDS ORDERED: GLUCOSAMINE-CH1 EAC7 PO (13:26)
[2020-09-28 13:40] LABS: White Blood Cells, Urine TNTC /hpf (0-5)
[2020-09-28 13:41] LABS: Bacteria Mod /hpf; Squamous Epithelial Cells Few /hpf (Few)
[2020-09-28] MEDS ORDERED: Cipro500 MG PO (14:36)
[2020-10-20] MEDS ORDERED: METPHE20 PO (17:53)
[2020-10-20] MEDS ORDERED: FUROSEMIDE40 MG PO (17:53)
== END 2020-09-28 15:25 | disposition home or self-care (01) ==
LOC: ER 11:31
PROVIDERS: Emergency Medicine
DX: T83.511A Infection and inflammatory reaction due to indwelling urethral catheter, initial encounter (principal); Z91.018 Allergy to other foods; Z79.899 Other long term (current) drug therapy
CPT/HCPCS: 36415; 51702; 71046; 80053; 81001; 83605; 85025; 87040; 87077; 87086; 87186; 96365-59; 96366-59; 99283-25; J0696; J7030

== ENCOUNTER → 2020-11-24 | Outpatient (CLI) | payer MEDICARE, OTHER ==
[~2020-11-24] MED LIST changes: +Cipro500 MG PO; +DOXYCYCLINE HY100 M1 PO; +FUROSEMIDE40 MG PO; +GLUCOSAMINE-CH1 EAC7
[2020-11-24 15:33] LABS: Anion Gap 6 mmol/L (6-16); Blood Urea Nitrogen 16 mg/dL (8-24); Bun/Creatinine Ratio 21.7 (12.0-20.0); CO2, Blood 28 mmol/L (21-32); Calcium, Blood 8.9 mg/dL (8.5-10.1); Chloride, Blood 97 mmol/L (98-108); Creatinine, Blood 0.74 mg/dL (0.60-1.20); Glomerular Filtration Rate >60 (60-); Glucose, Blood 93 mg/dL (70-99); Potassium, Blood 4.1 mmol/L (3.5-5.5); Sodium, Blood 131 mmol/L (136-145)
== END | disposition home or self-care (01) ==
LOC: LAB HH 13:00
PROVIDERS: Internal Medicine
DX: G35 Multiple sclerosis (principal); T83.511D Infection and inflammatory reaction due to indwelling urethral catheter, subsequent encounter
CPT/HCPCS: 80048

== ENCOUNTER → 2020-12-06 | Outpatient (CLI) | payer MEDICARE, OTHER ==
[2020-12-06 17:38] LABS: Anion Gap 5 mmol/L (6-16); Blood Urea Nitrogen 13 mg/dL (8-24); Bun/Creatinine Ratio 19.3 (12.0-20.0); CO2, Blood 25 mmol/L (21-32); Chloride, Blood 102 mmol/L (98-108); Creatinine, Blood 0.67 mg/dL (0.60-1.20); Glomerular Filtration Rate >60 (60-); Glucose, Blood 107 mg/dL (70-99); Potassium, Blood 4.4 mmol/L (3.5-5.5); Sodium, Blood 132 mmol/L (136-145)
== END | disposition home or self-care (01) ==
LOC: LAB HH 15:00 → LAB SHORT 15:00
PROVIDERS: Internal Medicine
DX: G35 Multiple sclerosis (principal); I25.119 Atherosclerotic heart disease of native coronary artery with unspecified angina pectoris; T83.511D Infection and inflammatory reaction due to indwelling urethral catheter, subsequent encounter
CPT/HCPCS: 80048

== ENCOUNTER 2021-02-07 22:04 | Emergency (ER) | payer MEDICARE, OTHER ==
[~2021-02-07] VITALS: Ht 182.9 cm; Wt 106.6 kg
[2021-02-07 22:40] LABS: BASOPHILS ABSOLUTE AUTO 0.06 K/mm3 (0.00-0.23); BASOPHILS PERCENT AUTO 1 % (0-2); EOSINOPHILS ABSOLUTE AUTO 0.27 K/mm3 (0.00-0.68); EOSINOPHILS PERCENT AUTO 2 % (0-6); Hematocrit 35.5 % (37.0-53.0); Hemoglobin 12.6 g/dL (13.5-17.5); IMMATURE GRAN ABSOLUTE AUTO 0.07 K/mm3 (0.00-0.10); IMMATURE GRAN PERCENT AUTO 1 % (0-1); LYMPHOCYTES ABSOLUTE AUTO 1.66 K/mm3 (0.84-5.20); LYMPHOCYTES PERCENT AUTO 13 % (21-46); MONOCYTES PERCENT AUTO 9 % (4-13); Mean Corpuscular HGB 31.1 pg (26.0-34.0); Mean Corpuscular HGB Conc 35.5 g/dL (31.5-36.5); Mean Corpuscular Volume 88 fL (80-100); Mean Platelet Volume 9.1 fL (9.1-12.4); NEUTROPHILS ABSOLUTE AUTO 9.98 K/mm3 (1.96-9.15); NEUTROPHILS PERCENT AUTO 75 % (41-73); Platelet Count 297 K/mm3 (150-400); RDW Coefficient Variation 13.2 % (11.7-14.2); RDW Standard Deviation 42.4 fL (35.1-46.3); Red Blood Cell Count 4.05 M/mm3 (4.30-5.90); White Blood Cell Count 13.24 K/mm3 (4.00-11.30)
[2021-02-07] MEDS ORDERED: AMLO5 PO (22:52)
[2021-02-07] MEDS ORDERED: NEBI5 PO ×2 (22:53)
[2021-02-07] MEDS ORDERED: SPIR25 PO (22:54)
[2021-02-07] MEDS ORDERED: LIOT25 PO (22:56)
[2021-02-07] MEDS ORDERED: IRBE150 PO (22:57)
[2021-02-07] MEDS ORDERED: FURO40 PO (22:58)
[2021-02-07] MEDS ORDERED: DOXY100 PO (22:59)
[2021-02-07 23:11] LABS: Alanine Aminotransfer (ALT/SGP 40 U/L (12-78); Albumin, Blood 3.5 g/dL (3.4-5.0); Alk Phos 81 U/L (50-136); Anion Gap 10 mmol/L (6-16); Aspartate Aminotrans (AST/SGOT 11 U/L (12-37); Bilirubin, Total 0.4 mg/dL (0.1-1.0); Blood Urea Nitrogen 16 mg/dL (8-24); Bun/Creatinine Ratio 19.1 (12.0-20.0); CO2, Blood 22 mmol/L (21-32); Calcium, Blood 8.9 mg/dL (8.5-10.1); Chloride, Blood 96 mmol/L (98-108); Creatinine, Blood 0.84 mg/dL (0.60-1.20); Globulin, Blood 3.6 g/dL (2.2-4.0); Glomerular Filtration Rate >60 (60-); Glucose, Blood 104 mg/dL (70-99); Potassium, Blood 4.2 mmol/L (3.5-5.5); Sodium, Blood 128 mmol/L (136-145); Total Protein, Blood 7.1 g/dL (6.4-8.2)
[2021-02-08 00:51] LABS: Source, Urine Catheter
[2021-02-08 06:03] LABS: Appearance, Urine Clear (Clear); Color, Urine Yellow (P-Yellow)
[2021-02-08 06:04] LABS: Bilirubin, Urine Neg (Neg); Blood, Urine 5+ (Neg); Glucose Qualitative, Urine Neg (Neg); Ketones, Urine Neg (Neg); Leukocyte Esterase, Urine 3+ (Neg); Nitrite, Urine Pos (Neg); Protein, Urine 1+ (Neg); Specific Gravity, Urine 1.005 (1.003-1.022); Urobilinogen, Urine NORM (Normal)
[2021-02-08 06:05] LABS: Bacteria Many /hpf; Squamous Epithelial Cells Few /hpf (Few); White Blood Cells, Urine 50-100 /hpf (0-5)
== END 2021-02-08 02:45 | disposition home or self-care (01) ==
LOC: ER 22:04
PROVIDERS: Emergency Medicine; Physician Assistant
DX: K52.9 Noninfective gastroenteritis and colitis, unspecified (principal); N30.00 Acute cystitis without hematuria; E86.0 Dehydration; I10 Essential (primary) hypertension; E03.9 Hypothyroidism, unspecified; K21.9 Gastro-esophageal reflux disease without esophagitis; Z79.899 Other long term (current) drug therapy; Z91.018 Allergy to other foods
CPT/HCPCS: 74177; 80053; 81001; 85025; 87077; 87086; 87186; 96374; 99284-25; J0696; Q9967

== ENCOUNTER → 2021-02-13 | Outpatient (CLI) | payer MEDICARE, OTHER ==
[2021-02-14 11:46] LABS: Adenovirus F 40/41 Not Detected (NOT DETECT); Astrovirus Not Detected (NOT DETECT); Campylobacter Sp Not Detected (NOT DETECT); Cryptosporidium Not Detected (NOT DETECT); Cyclospora Cayetanensis Not Detected (NOT DETECT); E. Coli O157 Not Detected (NOT DETECT); Entamoeba Histolytica Not Detected (NOT DETECT); Enteroaggregative E. coli-EAEC Not Detected (NOT DETECT); Enteropathogenic E. coli-EPEC Not Detected (NOT DETECT); Enterotoxigenic E. coli-ETEC Not Detected (NOT DETECT); Giardia Lamblia Not Detected (NOT DETECT); Norovirus GI/GII Not Detected (NOT DETECT); Plesiomonas Shigelloides Not Detected (NOT DETECT); Rotavirus A Not Detected (NOT DETECT); Salmonella Sp Not Detected (NOT DETECT); Sapovirus Not Detected (NOT DETECT); Shiga Toxin-prod E. coli-STEC Not Detected (NOT DETECT); Shigella/Enteroin E. coli-EIEC Not Detected (NOT DETECT); Vibrio Cholerae Not Detected (NOT DETECT); Vibrio Sp Not Detected (NOT DETECT); Yersinia Enterocolitica Not Detected (NOT DETECT)
== END | disposition home or self-care (01) ==
LOC: LAB SHORT 09:30 → LAB 09:30
PROVIDERS: Internal Medicine
DX: R19.7 Diarrhea, unspecified (principal)
CPT/HCPCS: 0097U

== ENCOUNTER 2021-04-26 11:16 | Inpatient (IN) | payer MEDICARE, OTHER ==
[~2021-04-26] VITALS: Ht 182.9 cm; Wt 106.6 kg
[~2021-04-26 11:16] MED LIST changes: +Betimol5 ML BOTHEYES; -TIMO.25OPS BOTHEYES
[2021-04-26 12:17] LABS: BASOPHILS ABSOLUTE AUTO 0.06 K/mm3 (0.00-0.23); BASOPHILS PERCENT AUTO 1 % (0-2); EOSINOPHILS ABSOLUTE AUTO 0.39 K/mm3 (0.00-0.68); EOSINOPHILS PERCENT AUTO 3 % (0-6); Hematocrit 34.6 % (37.0-53.0); Hemoglobin 12.1 g/dL (13.5-17.5); IMMATURE GRAN ABSOLUTE AUTO 0.08 K/mm3 (0.00-0.10); IMMATURE GRAN PERCENT AUTO 1 % (0-1); LYMPHOCYTES ABSOLUTE AUTO 1.34 K/mm3 (0.84-5.20); LYMPHOCYTES PERCENT AUTO 11 % (21-46); MONOCYTES ABSOLUTE AUTO 1.39 K/mm3 (0.16-1.47); MONOCYTES PERCENT AUTO 12 % (4-13); Mean Corpuscular HGB 31.9 pg (26.0-34.0); Mean Corpuscular Volume 91 fL (80-100); NEUTROPHILS ABSOLUTE AUTO 8.75 K/mm3 (1.96-9.15); NEUTROPHILS PERCENT AUTO 73 % (41-73); RDW Coefficient Variation 13.1 % (11.7-14.2); RDW Standard Deviation 43.6 fL (35.1-46.3); Red Blood Cell Count 3.79 M/mm3 (4.30-5.90); White Blood Cell Count 12.01 K/mm3 (4.00-11.30)
[2021-04-26 12:36] LABS: Mean Platelet Volume 8.9 fL (9.1-12.4); Platelet Count 243 K/mm3 (150-400)
[2021-04-26 12:46] LABS: Alanine Aminotransfer (ALT/SGP 36 U/L (12-78); Albumin, Blood 3.3 g/dL (3.4-5.0); Albumin/Globulin Ratio 0.8 (0.8-1.8); Alk Phos 80 U/L (50-136); Anion Gap 5 mmol/L (6-16); Aspartate Aminotrans (AST/SGOT 20 U/L (12-37); Bilirubin, Total 0.4 mg/dL (0.1-1.0); Blood Urea Nitrogen 16 mg/dL (8-24); Bun/Creatinine Ratio 20.3 (12.0-20.0); CO2, Blood 26 mmol/L (21-32); Calcium, Blood 9.1 mg/dL (8.5-10.1); Chloride, Blood 98 mmol/L (98-108); Creatinine, Blood 0.79 mg/dL (0.60-1.20); Glomerular Filtration Rate >60 (60-); Glucose, Blood 97 mg/dL (70-99); Potassium, Blood 4.5 mmol/L (3.5-5.5); Sodium, Blood 129 mmol/L (136-145); Total Protein, Blood 7.3 g/dL (6.4-8.2)
[2021-04-26 14:09] LABS: Source, Urine Catheter
[2021-04-26 14:12] LABS: Appearance, Urine Hazy (Clear); Bilirubin, Urine Neg (Neg); Blood, Urine 2+ (Neg); Color, Urine Yellow (P-Yellow); Glucose Qualitative, Urine Neg (Neg); Ketones, Urine Neg (Neg); Leukocyte Esterase, Urine 2+ (Neg); Nitrite, Urine Pos (Neg); Protein, Urine Neg (Neg); Urobilinogen, Urine NORM (Normal)
[2021-04-26 14:45] LABS: Bacteria Mod /hpf; Squamous Epithelial Cells Rare /hpf (Few)
[2021-04-26] MEDS ORDERED: EUTHYROX125 MCG PO (15:46)
[2021-04-26] MEDS ORDERED: PROBIOTIC1 EA13 PO (15:47)
[2021-04-26] MEDS ORDERED: CIDAFLEX TABLE1 EACH PO (15:47)
[2021-04-26] MEDS ORDERED: METPHE20 PO (15:48)
[2021-04-26] MEDS ORDERED: Feosol45 MG (15:51)
[2021-04-26] MEDS ORDERED: Vitamin C100 M1 PO (15:53)
[2021-04-26] MEDS ORDERED: METPHE20CR PO (15:55)
[2021-04-26] MEDS ORDERED: Ritalin10 MG PO (15:55)
[2021-04-26] MEDS ORDERED: LATANOPROST2.5 M3 (15:57)
[2021-04-26] MEDS ORDERED: IRBESARTAN150 M3 PO (15:58)
[2021-04-26] MEDS ORDERED: DOXYCYCLINE HY100 M1 PO (15:58)
[2021-04-26] MEDS ORDERED: CYTOMEL25 MC2 PO (15:58)
[2021-04-26] MEDS ORDERED: SYNTHROID125 MC1 PO (15:58)
--- NOTE | 2021-04-26 18:11 | NUR ---
SHIFT SUMMARY PATIENT ARRIVED FROM THE ED TO THE MEDICAL FLOOR APPROX 1700. PATIENT ALERT AND ORIENTED TO ROOM. PATIENT ACCOMPANIED BY . PATIENT ADMISSION AND MED REC DONE. NO ACUTE EVENTS THIS SHIFT. WILL CONTINUE TO MONITOR UNTIL SHIFT CHANGE.
[2021-04-27 04:09] LABS: BASOPHILS ABSOLUTE AUTO 0.06 K/mm3 (0.00-0.23); BASOPHILS PERCENT AUTO 0 % (0-2); EOSINOPHILS ABSOLUTE AUTO 0.48 K/mm3 (0.00-0.68); EOSINOPHILS PERCENT AUTO 4 % (0-6); Hematocrit 32.5 % (37.0-53.0); Hemoglobin 11.3 g/dL (13.5-17.5); IMMATURE GRAN ABSOLUTE AUTO 0.07 K/mm3 (0.00-0.10); IMMATURE GRAN PERCENT AUTO 1 % (0-1); LYMPHOCYTES ABSOLUTE AUTO 2.27 K/mm3 (0.84-5.20); LYMPHOCYTES PERCENT AUTO 17 % (21-46); MONOCYTES ABSOLUTE AUTO 1.43 K/mm3 (0.16-1.47); MONOCYTES PERCENT AUTO 11 % (4-13); Mean Corpuscular HGB 31.8 pg (26.0-34.0); Mean Corpuscular HGB Conc 34.8 g/dL (31.5-36.5); Mean Corpuscular Volume 92 fL (80-100); NEUTROPHILS ABSOLUTE AUTO 9.14 K/mm3 (1.96-9.15); NEUTROPHILS PERCENT AUTO 68 % (41-73); Platelet Count 243 K/mm3 (150-400); RDW Coefficient Variation 13.2 % (11.7-14.2); RDW Standard Deviation 43.9 fL (35.1-46.3); Red Blood Cell Count 3.55 M/mm3 (4.30-5.90); White Blood Cell Count 13.45 K/mm3 (4.00-11.30)
[2021-04-27 04:29] LABS: Alanine Aminotransfer (ALT/SGP 34 U/L (12-78); Albumin, Blood 3.1 g/dL (3.4-5.0); Albumin/Globulin Ratio 0.9 (0.8-1.8); Alk Phos 73 U/L (50-136); Anion Gap 4 mmol/L (6-16); Aspartate Aminotrans (AST/SGOT 14 U/L (12-37); Bilirubin, Total 0.4 mg/dL (0.1-1.0); Blood Urea Nitrogen 15 mg/dL (8-24); Bun/Creatinine Ratio 19.1 (12.0-20.0); CO2, Blood 27 mmol/L (21-32); Chloride, Blood 101 mmol/L (98-108); Creatinine, Blood 0.78 mg/dL (0.60-1.20); Globulin, Blood 3.6 g/dL (2.2-4.0); Glomerular Filtration Rate >60 (60-); Glucose, Blood 96 mg/dL (70-99); Magnesium, Blood 1.9 mg/dL (1.6-2.4); Potassium, Blood 4.8 mmol/L (3.5-5.5); Sodium, Blood 132 mmol/L (136-145); Total Protein, Blood 6.7 g/dL (6.4-8.2)
--- NOTE | 2021-04-27 04:38 | NUR ---
END OF SHIFT SUMMARY: Pt A&Ox4. Pleasant. Able to voice needs. Denies any pain or discomfort at this time. Frequent turns. Taylor draining well to gravity. Call light within reach. updated. Will continue to monitor till end of shift.
--- NOTE | 2021-04-27 17:14 | NUR ---
SUMMARY PT SITTING UP IN BED WATCHING TV, PT HAS BEEN PLEASANT AND COOPERATIVE WITH CARE T/O THE DAY, PT WORKED WITH PT/OT, HAS BEEN IN AND HAS ASSISTED WITH HIS CARE AND MEALS, PT HOPEFUL TO DC HOME TOMORROW, VSS, WILL CONTINUE TO MONITOR
--- NOTE | 2021-04-28 05:55 | NUR ---
SHIFT SUMMARY PT IS A 70 Y/O MALE, ADMITTED FOR A CATHETER-RELATED UTI. HE IS A&O X 4, BEDREST. HX OF MS. CHRONIC GUNN IN PLACE, PATENT AND DRAINING. NO C/O PAIN, NAUSEA OR SOB. VITAL SIGNS STABLE. NO ACUTE CHANGES IN PT CONDITION NOTED DURING THE NIGHT. WILL CONTINUE TO MONITOR AND TREAT PER EMAR UNTIL HAND OFF OT DAY SHIFT RN.
--- NOTE | 2021-04-28 17:19 | NUR ---
SUMMARY PT SITTING UP IN BED WATCHING TV, PT HAS BEEN PLEASANT AND COOPERATIVE WITH CARE T/O THE DAY, SPOUSE HAS BEEN IN TO VISIT AND BE PRESENT DURING THERAPY, PT WORKED WITH PT/OT, HAS DENIED ANY PAIN OR SOB, VSS, WILL CONT TO MONITOR
[2021-04-29 04:44] LABS: Hematocrit 34.1 % (37.0-53.0); Hemoglobin 11.9 g/dL (13.5-17.5); Mean Corpuscular HGB 31.9 pg (26.0-34.0); Mean Corpuscular HGB Conc 34.9 g/dL (31.5-36.5); Mean Corpuscular Volume 91 fL (80-100); Mean Platelet Volume 9.1 fL (9.1-12.4); Platelet Count 265 K/mm3 (150-400); RDW Coefficient Variation 13.1 % (11.7-14.2); RDW Standard Deviation 44.1 fL (35.1-46.3); Red Blood Cell Count 3.73 M/mm3 (4.30-5.90); White Blood Cell Count 18.28 K/mm3 (4.00-11.30)
--- NOTE | 2021-04-29 05:02 | NUR ---
SHIFT SUMMARY PT IS A 70 Y/O MALE, ADMITTED FOR A CAUTI. PT HAS A CHRONIC GUNN IN PLACE, PATENT AND DRAINING. HE IS A&O X 4, 2PA AND WHEELCHAIR BOUND AT BASELINE. PT HAD MULTIPLE BMS DURING THE NIGHT. NO C/O ACUTE PAIN, NAUSEA OR SOB. VITAL SIGNS STABLE. NO ACUTE CHANGES IN PT CONDITION NOTED DURING THE NIGHT. WILL CONTINUE TO MONITOR AND TREAT PER EMAR UNTIL HAND OFF TO DAY SHIFT RN.
[2021-04-29 05:08] LABS: Alanine Aminotransfer (ALT/SGP 35 U/L (12-78); Albumin/Globulin Ratio 0.8 (0.8-1.8); Alk Phos 73 U/L (50-136); Anion Gap 5 mmol/L (6-16); Aspartate Aminotrans (AST/SGOT 14 U/L (12-37); Bilirubin, Total 0.6 mg/dL (0.1-1.0); Blood Urea Nitrogen 19 mg/dL (8-24); Bun/Creatinine Ratio 20.8 (12.0-20.0); CO2, Blood 27 mmol/L (21-32); Calcium, Blood 8.9 mg/dL (8.5-10.1); Chloride, Blood 96 mmol/L (98-108); Creatinine, Blood 0.92 mg/dL (0.60-1.20); Globulin, Blood 3.8 g/dL (2.2-4.0); Glomerular Filtration Rate >60 (60-); Glucose, Blood 109 mg/dL (70-99); Potassium, Blood 4.7 mmol/L (3.5-5.5); Sodium, Blood 128 mmol/L (136-145); Total Protein, Blood 6.8 g/dL (6.4-8.2)
[2021-04-29 14:00] LABS: C DIFFICILE DNA NEGATIVE (Negative)
--- NOTE | 2021-04-29 17:01 | NUR ---
SUMMARY PT SITTING UP IN BED WATCHING TV, PT HAS BEEN PLEASANT AND COOPERATIVE T/O THE DAY, SPOUSE HAS BEEN IN TO VISIT AND HAS BROUGHT HIS MOTORIZED WHEELCHAIR, PT WORKED WITH PT/OT AND WAS ABLE TO GET UP TO THE WHEELCHAIR AND SAT IN IT FOR SEVERAL HOURS, PT ABLE TO STAND-PIVOT TRANSFER BACK TO THE BED WITH 2P ASSIST, PLAN IS TO DC HOME WITH HOME HEALTH TOMORROW, VSS, WILL CONT TO SUNNY
[2021-04-30 04:38] LABS: Hematocrit 32.3 % (37.0-53.0); Hemoglobin 11.4 g/dL (13.5-17.5); Mean Corpuscular HGB 32.2 pg (26.0-34.0); Mean Corpuscular HGB Conc 35.3 g/dL (31.5-36.5); Mean Corpuscular Volume 91 fL (80-100); Mean Platelet Volume 9.1 fL (9.1-12.4); Platelet Count 254 K/mm3 (150-400); RDW Coefficient Variation 13.1 % (11.7-14.2); RDW Standard Deviation 43.5 fL (35.1-46.3); Red Blood Cell Count 3.54 M/mm3 (4.30-5.90); White Blood Cell Count 13.55 K/mm3 (4.00-11.30)
--- NOTE | 2021-04-30 04:50 | NUR ---
SHIFT SUMMARY PT IS A&OX3, WC BOUND. ABLE TO MAKE NEEDS KNOWN. RESP EVEN AND UNLABORED, PT DENIES PAIN. PT IS ON IV ANTIBIOTICS FOR UTI SEPSIS. ADLS PROVIDED, SAFETY MEASURES IN PLACE. WILL CONTINUE TO MONITOR.
[2021-04-30 05:00] LABS: Alanine Aminotransfer (ALT/SGP 32 U/L (12-78); Albumin/Globulin Ratio 0.8 (0.8-1.8); Alk Phos 64 U/L (50-136); Anion Gap 6 mmol/L (6-16); Aspartate Aminotrans (AST/SGOT 13 U/L (12-37); Bilirubin, Total 0.4 mg/dL (0.1-1.0); Blood Urea Nitrogen 18 mg/dL (8-24); Bun/Creatinine Ratio 22.8 (12.0-20.0); CO2, Blood 26 mmol/L (21-32); Calcium, Blood 8.8 mg/dL (8.5-10.1); Chloride, Blood 97 mmol/L (98-108); Creatinine, Blood 0.79 mg/dL (0.60-1.20); Globulin, Blood 3.8 g/dL (2.2-4.0); Glomerular Filtration Rate >60 (60-); Glucose, Blood 109 mg/dL (70-99); Potassium, Blood 4.3 mmol/L (3.5-5.5); Sodium, Blood 129 mmol/L (136-145); Total Protein, Blood 6.8 g/dL (6.4-8.2)
[2021-04-30] MEDS ORDERED: LEVFLO500 PO (12:55)
--- NOTE | 2021-04-30 15:23 | NUR ---
DISCHARGE PATIENT TRANSPORTED VIA PERSONAL ELECTRIC WHEELCHAIR TO PRIVATE VEHICLE. DISCHARGE INSTRUCTIONS EXPLAINED TO PATIENT AND PATIENT'S . BOTH STATED UNDERSTANDING. PACKET SENT WITH PATIENT. BELONGINGS SENT WITH PATIENT. IV REMOVED WITHOUT DIFFICULTY. MEDICATIONS FAXED TO PREFERRED PHARMACY. PATIENT AND PATIENT'S INFORMED OF NEED TO SCHEDULE FOLLOW UP WITH PCP ON SUNDAY SINCE OFFICE IS CLOSED FOR WEEKEND.
== END 2021-04-30 15:20 | disposition home health service (06) | DRG 700 ==
LOC: ER 11:16 → MEDS 11:17
PROVIDERS: Internal Medicine; Nurse Practitioner Acute Care; Physician Assistant; ADMIT Internal Medicine
DX: T83.511A Infection and inflammatory reaction due to indwelling urethral catheter, initial encounter (principal); G35 Multiple sclerosis; I10 Essential (primary) hypertension; E55.9 Vitamin D deficiency, unspecified; E53.8 Deficiency of other specified B group vitamins; H40.9 Unspecified glaucoma; R15.9 Full incontinence of feces; E03.9 Hypothyroidism, unspecified; B96.5 Pseudomonas (aeruginosa) (mallei) (pseudomallei) as the cause of diseases classified elsewhere; K21.9 Gastro-esophageal reflux disease without esophagitis; F32.A Depression, unspecified; E78.5 Hyperlipidemia, unspecified; M48.02 Spinal stenosis, cervical region; M48.061 Spinal stenosis, lumbar region without neurogenic claudication; Z96.642 Presence of left artificial hip joint; Z91.018 Allergy to other foods; Z79.899 Other long term (current) drug therapy; Z90.49 Acquired absence of other specified parts of digestive tract; Z98.890 Other specified postprocedural states; Y84.6 Urinary catheterization as the cause of abnormal reaction of the patient, or of later complication, without mention of misadventure at the time of the procedure
CPT/HCPCS: 36415; 80053; 81001; 83605; 83735; 85025; 85027; 87077; 87086; 87186; 87493; 96365; 96372; 96375; 96376; 97110; 97161; 97166; 97530; 97535; 99285; A9270; G0378; J0692; J1650; J2543; J7030; J7050

== ENCOUNTER → 2021-05-17 | Outpatient (CLI) | payer MEDICARE, OTHER ==
[~2021-05-17] MED LIST changes: +CIDAFLEX TABLE1 EACH PO; +CYTOMEL25 MC2 PO; +EUTHYROX125 MCG PO; +Feosol45 MG; +IRBESARTAN150 M3 PO; +LATANOPROST2.5 M3; +LEVFLO500 PO; +PROBIOTIC1 EA13 PO; +SYNTHROID125 MC1 PO; +Vitamin C100 M1 PO
[2021-05-17 16:00] LABS: Alanine Aminotransfer (ALT/SGP 44 U/L (12-78); Albumin, Blood 3.4 g/dL (3.4-5.0); Albumin/Globulin Ratio 0.8 (0.8-1.8); Alk Phos 87 U/L (50-136); Anion Gap 5 mmol/L (6-16); Aspartate Aminotrans (AST/SGOT 18 U/L (12-37); Bilirubin, Total 0.3 mg/dL (0.1-1.0); Blood Urea Nitrogen 17 mg/dL (8-24); Bun/Creatinine Ratio 26.6 (12.0-20.0); CO2, Blood 28 mmol/L (21-32); Calcium, Blood 9.3 mg/dL (8.5-10.1); Chloride, Blood 101 mmol/L (98-108); Creatinine, Blood 0.64 mg/dL (0.60-1.20); Globulin, Blood 4.2 g/dL (2.2-4.0); Glomerular Filtration Rate >60 (60-); Glucose, Blood 106 mg/dL (70-99); Potassium, Blood 4.2 mmol/L (3.5-5.5); Sodium, Blood 134 mmol/L (136-145); Total Protein, Blood 7.6 g/dL (6.4-8.2)
[2021-05-17 16:05] LABS: BASOPHILS ABSOLUTE AUTO 0.08 K/mm3 (0.00-0.23); BASOPHILS PERCENT AUTO 1 % (0-2); EOSINOPHILS ABSOLUTE AUTO 0.33 K/mm3 (0.00-0.68); EOSINOPHILS PERCENT AUTO 3 % (0-6); Hematocrit 38.6 % (37.0-53.0); Hemoglobin 13.2 g/dL (13.5-17.5); IMMATURE GRAN ABSOLUTE AUTO 0.05 K/mm3 (0.00-0.10); IMMATURE GRAN PERCENT AUTO 1 % (0-1); LYMPHOCYTES ABSOLUTE AUTO 1.74 K/mm3 (0.84-5.20); LYMPHOCYTES PERCENT AUTO 17 % (21-46); MONOCYTES ABSOLUTE AUTO 1.06 K/mm3 (0.16-1.47); MONOCYTES PERCENT AUTO 10 % (4-13); Mean Corpuscular HGB 31.7 pg (26.0-34.0); Mean Corpuscular HGB Conc 34.2 g/dL (31.5-36.5); Mean Corpuscular Volume 93 fL (80-100); NEUTROPHILS PERCENT AUTO 69 % (41-73); RDW Coefficient Variation 13.3 % (11.7-14.2); RDW Standard Deviation 44.8 fL (35.1-46.3); Red Blood Cell Count 4.16 M/mm3 (4.30-5.90); White Blood Cell Count 10.56 K/mm3 (4.00-11.30)
[2021-05-17 16:09] LABS: Mean Platelet Volume 10.6 fL (9.1-12.4); Platelet Count 258 K/mm3 (150-400)
== END | disposition home or self-care (01) ==
LOC: LAB HH 13:45
PROVIDERS: Internal Medicine
DX: D64.9 Anemia, unspecified (principal); I10 Essential (primary) hypertension; G35 Multiple sclerosis; R26.89 Other abnormalities of gait and mobility; R33.8 Other retention of urine; Z79.899 Other long term (current) drug therapy
CPT/HCPCS: 80053; 83735; 85025

== ENCOUNTER → 2021-05-23 | Outpatient (CLI) | payer MEDICARE, OTHER ==
[2021-05-25 14:10] LABS: QUANTIFERON MITOGEN VALUE >10.00 IU/mL (.); QUANTIFERON TB1 AG VALUE 0.07 IU/mL (.); QUANTIFERON TB2 AG VALUE 0.07 IU/mL (.); QUANTIFERON-TB GOLD PLUS Negative (Negative)
== END | disposition home or self-care (01) ==
LOC: LAB HH 11:06 → LAB SHORT 11:06
PROVIDERS: Internal Medicine
DX: G35 Multiple sclerosis (principal)
CPT/HCPCS: 86480

== ENCOUNTER 2021-08-15 19:32 | Emergency (ER) | payer MEDICARE, OTHER ==
[~2021-08-15] VITALS: Ht 182.9 cm; Wt 111.1 kg
[2021-08-15] MEDS ORDERED: AUBAGIO14 MG PO (20:08)
[2021-08-15] MEDS ORDERED: METO25ER PO (20:09)
[2021-08-15] MEDS ORDERED: HIPREX1 G1 PO (20:10)
[2021-08-15 20:39] LABS: Influenza A, PCR NEGATIVE (NEGATIVE); Influenza B, PCR NEGATIVE (NEGATIVE); Resp Syncytial Virus, PCR NEGATIVE (NEGATIVE); SARS-Cov-2 (COVID-19) PCR, MMC NEGATIVE (NEGATIVE)
[2021-08-15 21:38] LABS: BASOPHILS PERCENT AUTO 1 % (0-2); EOSINOPHILS ABSOLUTE AUTO 0.45 K/mm3 (0.00-0.68); EOSINOPHILS PERCENT AUTO 2 % (0-6); Hematocrit 42.4 % (37.0-53.0); Hemoglobin 14.3 g/dL (13.5-17.5); IMMATURE GRAN PERCENT AUTO 1 % (0-1); LYMPHOCYTES ABSOLUTE AUTO 1.47 K/mm3 (0.84-5.20); LYMPHOCYTES PERCENT AUTO 7 % (21-46); MONOCYTES ABSOLUTE AUTO 1.94 K/mm3 (0.16-1.47); MONOCYTES PERCENT AUTO 9 % (4-13); Mean Corpuscular HGB Conc 33.7 g/dL (31.5-36.5); Mean Corpuscular Volume 92 fL (80-100); Mean Platelet Volume 9.3 fL (9.1-12.4); NEUTROPHILS ABSOLUTE AUTO 17.03 K/mm3 (1.96-9.15); NEUTROPHILS PERCENT AUTO 81 % (41-73); Platelet Count 290 K/mm3 (150-400); RDW Coefficient Variation 13.2 % (11.7-14.2); RDW Standard Deviation 45.3 fL (35.1-46.3); Red Blood Cell Count 4.61 M/mm3 (4.30-5.90); White Blood Cell Count 21.09 K/mm3 (4.00-11.30)
[2021-08-15 21:50] LABS: Alanine Aminotransfer (ALT/SGP 44 U/L (12-78); Albumin, Blood 3.7 g/dL (3.4-5.0); Albumin/Globulin Ratio 0.9 (0.8-1.8); Alk Phos 98 U/L (50-136); Anion Gap 8 mmol/L (6-16); Aspartate Aminotrans (AST/SGOT 20 U/L (12-37); Bilirubin, Total 0.3 mg/dL (0.1-1.0); Blood Urea Nitrogen 12 mg/dL (8-24); Bun/Creatinine Ratio 19.5 (12.0-20.0); CO2, Blood 24 mmol/L (21-32); Calcium, Blood 9.2 mg/dL (8.5-10.1); Chloride, Blood 101 mmol/L (98-108); Creatinine, Blood 0.62 mg/dL (0.60-1.20); Globulin, Blood 4.1 g/dL (2.2-4.0); Glomerular Filtration Rate >60 (60-); Glucose, Blood 126 mg/dL (70-99); Potassium, Blood 4.8 mmol/L (3.5-5.5); Sodium, Blood 133 mmol/L (136-145); Total Protein, Blood 7.8 g/dL (6.4-8.2)
[2021-08-16 00:17] LABS: Source, Urine Foley catheter
[2021-08-16 00:22] LABS: Bilirubin, Urine Neg (Neg); Blood, Urine 1+ (Neg); Glucose Qualitative, Urine Neg (Neg); Ketones, Urine Neg (Neg); Leukocyte Esterase, Urine 3+ (Neg); Nitrite, Urine Pos (Neg); Protein, Urine 1+ (Neg); Urobilinogen, Urine NORM (Normal)
[2021-08-16 00:36] LABS: Appearance, Urine Hazy (Clear); Color, Urine Yellow (P-Yellow)
[2021-08-16 00:37] LABS: Amorphous Light (0-Heavy); Bacteria Many /hpf; Red Blood Cells, Urine Rare /hpf (0-2); Squamous Epithelial Cells Rare /hpf (Few); White Blood Cells, Urine TNTC /hpf (0-5)
[2021-08-16] MEDS ORDERED: CIPR500 PO (01:00)
== END 2021-08-16 04:35 | disposition home or self-care (01) ==
LOC: ER 19:32
PROVIDERS: Student in an Organized Health Care Education/Training Program
DX: K52.9 Noninfective gastroenteritis and colitis, unspecified (principal); N39.0 Urinary tract infection, site not specified; I10 Essential (primary) hypertension; E78.5 Hyperlipidemia, unspecified; E03.9 Hypothyroidism, unspecified; Z79.899 Other long term (current) drug therapy; Z20.822 Contact with and (suspected) exposure to COVID-19
CPT/HCPCS: 0241U; 80053; 81001; 82272; 83605; 83735; 85025; 87077; 87086; 87186; 99284; A9270; J7030

== ENCOUNTER → 2022-01-29 | Outpatient (CLI) | payer MEDICARE, OTHER ==
[~2022-01-29] MED LIST changes: +AUBAGIO14 MG PO; +CIPR500 PO; +HIPREX1 G1 PO; +METO25ER PO
[2022-01-30 13:34] LABS: Adenovirus F 40/41 Not Detected (NOT DETECT); Astrovirus Not Detected (NOT DETECT); Campylobacter Sp Not Detected (NOT DETECT); Cryptosporidium Not Detected (NOT DETECT); Cyclospora Cayetanensis Not Detected (NOT DETECT); E. Coli O157 Not Detected (NOT DETECT); Entamoeba Histolytica Not Detected (NOT DETECT); Enteroaggregative E. coli-EAEC Not Detected (NOT DETECT); Enteropathogenic E. coli-EPEC Not Detected (NOT DETECT); Enterotoxigenic E. coli-ETEC Not Detected (NOT DETECT); Giardia Lamblia Not Detected (NOT DETECT); Norovirus GI/GII Not Detected (NOT DETECT); Plesiomonas Shigelloides Not Detected (NOT DETECT); Rotavirus A Not Detected (NOT DETECT); Salmonella Sp Not Detected (NOT DETECT); Sapovirus Not Detected (NOT DETECT); Shiga Toxin-prod E. coli-STEC Not Detected (NOT DETECT); Shigella/Enteroin E. coli-EIEC Not Detected (NOT DETECT); Vibrio Cholerae Not Detected (NOT DETECT); Vibrio Sp Not Detected (NOT DETECT); Yersinia Enterocolitica Not Detected (NOT DETECT)
== END | disposition home or self-care (01) ==
LOC: LAB 09:00 → LAB SHORT 09:00 → LAB FUT 01-24 09:35
PROVIDERS: Internal Medicine
DX: R19.7 Diarrhea, unspecified (principal)
CPT/HCPCS: 87507

== ENCOUNTER 2022-03-10 05:28 | Inpatient (IN) | payer MEDICARE, OTHER ==
[~2022-03-10] VITALS: Ht 177.8 cm; Wt 124.3 kg
[2022-03-10 05:59] LABS: BASOPHILS ABSOLUTE AUTO 0.09 K/mm3 (0.00-0.23); BASOPHILS PERCENT AUTO 1 % (0-2); EOSINOPHILS ABSOLUTE AUTO 0.24 K/mm3 (0.00-0.68); EOSINOPHILS PERCENT AUTO 1 % (0-6); Hematocrit 40.4 % (37.0-53.0); Hemoglobin 13.4 g/dL (13.5-17.5); IMMATURE GRAN ABSOLUTE AUTO 0.12 K/mm3 (0.00-0.10); IMMATURE GRAN PERCENT AUTO 1 % (0-1); LYMPHOCYTES ABSOLUTE AUTO 1.41 K/mm3 (0.84-5.20); LYMPHOCYTES PERCENT AUTO 7 % (21-46); MONOCYTES ABSOLUTE AUTO 1.59 K/mm3 (0.16-1.47); MONOCYTES PERCENT AUTO 8 % (4-13); Mean Corpuscular HGB 30.8 pg (26.0-34.0); Mean Corpuscular HGB Conc 33.2 g/dL (31.5-36.5); Mean Corpuscular Volume 93 fL (80-100); Mean Platelet Volume 10.2 fL (9.1-12.4); NEUTROPHILS ABSOLUTE AUTO 16.37 K/mm3 (1.96-9.15); NEUTROPHILS PERCENT AUTO 83 % (41-73); Platelet Count 253 K/mm3 (150-400); RDW Coefficient Variation 13.7 % (11.7-14.2); RDW Standard Deviation 46.9 fL (35.1-46.3); Red Blood Cell Count 4.35 M/mm3 (4.30-5.90); White Blood Cell Count 19.82 K/mm3 (4.00-11.30)
[2022-03-10 07:02] LABS: Albumin, Blood 2.9 g/dL (3.4-5.0); Albumin/Globulin Ratio 0.7 (0.8-1.8); Bilirubin, Total 0.5 mg/dL (0.1-1.0); Calcium, Blood 9.4 mg/dL (8.5-10.1); Creatinine, Blood 0.78 mg/dL (0.60-1.20); Globulin, Blood 4.2 g/dL (2.2-4.0); Potassium, Blood 4.7 mmol/L (3.5-5.5); Total Protein, Blood 7.1 g/dL (6.4-8.2)
[2022-03-10 08:45] LABS: Source, Urine Foley catheter
[2022-03-10 08:56] LABS: Appearance, Urine Hazy (Clear); Bilirubin, Urine Neg (Neg); Blood, Urine 5+ (Neg); Color, Urine Yellow (P-Yellow); Glucose Qualitative, Urine Neg (Neg); Ketones, Urine Neg (Neg); Leukocyte Esterase, Urine 3+ (Neg); Nitrite, Urine Neg (Neg); Protein, Urine 2+ (Neg); Urobilinogen, Urine NORM (Normal)
[2022-03-10 09:26] LABS: White Blood Cells, Urine 50-100 /hpf (0-5)
[2022-03-10 09:29] LABS: Bacteria Mod /hpf
[2022-03-10 09:30] LABS: Squamous Epithelial Cells Not Seen /hpf (Few)
[2022-03-10] MEDS ORDERED: Aspir 8181 MG PO (10:44)
[2022-03-10] MEDS ORDERED: LOPE2C PO (10:44)
[2022-03-10] MEDS ORDERED: COLESEVELAM HC625 MG PO (10:48)
[2022-03-10] MEDS ORDERED: FERROUS SULFAT325 M3 PO (10:51)
[2022-03-10] MEDS ORDERED: OMEP20ER PO (10:56)
[2022-03-10] MEDS ORDERED: PROBIOTIC1 EA13 PO (11:01)
[2022-03-10] MEDS ORDERED: ASCO500 PO (11:05)
[2022-03-10] MEDS ORDERED: Nitrofurantoin100 M1 PO (11:07)
[2022-03-10] MEDS ORDERED: AUBAGIO14 MG PO (14:36)
[2022-03-10] MEDS ORDERED: REFRESH CELLUVISC BOTHEYES (16:42)
--- NOTE | 2022-03-10 18:08 | NUR ---
SHIFT SUMMARY PT ARRIVED TO [facility] [place] APPROXIMATELY 1330 WITH AT BEDISIDE. A&Ox4, VSS, SpO2> 92% RA, ST 100's WITH PVC's. ONCE PT SETTLED INTO ROOM, PT WAS ABLE TO REST COMFORTABLY AND TAKE A NAP. PT DENIES CP AND SOB. NO ACUTE EVENTS SINCE PT WAS BROUGHT TO ROOM.
[2022-03-11 05:08] LABS: BASOPHILS PERCENT AUTO 1 % (0-2); EOSINOPHILS ABSOLUTE AUTO 0.84 K/mm3 (0.00-0.68); EOSINOPHILS PERCENT AUTO 5 % (0-6); Hematocrit 33.6 % (37.0-53.0); Hemoglobin 11.1 g/dL (13.5-17.5); IMMATURE GRAN ABSOLUTE AUTO 0.12 K/mm3 (0.00-0.10); IMMATURE GRAN PERCENT AUTO 1 % (0-1); LYMPHOCYTES ABSOLUTE AUTO 1.97 K/mm3 (0.84-5.20); LYMPHOCYTES PERCENT AUTO 12 % (21-46); MONOCYTES ABSOLUTE AUTO 1.91 K/mm3 (0.16-1.47); MONOCYTES PERCENT AUTO 11 % (4-13); Mean Corpuscular HGB 31.4 pg (26.0-34.0); Mean Corpuscular Volume 95 fL (80-100); Mean Platelet Volume 10.2 fL (9.1-12.4); NEUTROPHILS ABSOLUTE AUTO 12.19 K/mm3 (1.96-9.15); NEUTROPHILS PERCENT AUTO 71 % (41-73); Platelet Count 205 K/mm3 (150-400); Red Blood Cell Count 3.54 M/mm3 (4.30-5.90); White Blood Cell Count 17.13 K/mm3 (4.00-11.30)
--- NOTE | 2022-03-11 05:33 | NUR ---
SHIFT SUMMARY AOX4, CALLS APPROPRIATELY. DENIES PAIN OR SOB. 2P MAX ASSIST FOR REPOSITIONING. SKIN BREAKDOWN TO BOTTOM, PICTURE IN CHART, MEPILEX APPLIED. GUNN CATHETER PATENT DRAINING CLOUDY, RED URINE. VSS, NO ACUTE CHANGES AT THIS TIME. BED IN LOWEST POSITION WITH CALL LIGHT IN REACH. WILL CONTINUE TO MONITOR AND REPORT TO ONCOMING RN.
[2022-03-11 06:10] LABS: Bun/Creatinine Ratio 22.5 (12.0-20.0); Calcium, Blood 8.7 mg/dL (8.5-10.1); Creatinine, Blood 0.94 mg/dL (0.60-1.20); Thyroid Stimulating Hormone 30.2 uIU/mL (0.360-4.800); Thyroxine (T4) 5.4 ug/dL (4.5-12.1)
--- NOTE | 2022-03-11 16:58 | NUR ---
SHIFT SUMMARY PT HAS BEEN ALERT AND ORIENTED X 4 T/O SHIFT. HE IS PLEASANT AND COOPERATIVE WITH CARE. VITAL SIGNS STABLE, SPO2 >95% VIA ROOM AIR. HE HAS DENIED FEELINGS OF CHEST PAIN/PRESSURE. HE REPORTED NECK PAIN 5/10 THIS AFTERNOON, EXTRA NECK SUPPORT PROVIDED, ALSO SEE EMAR. HE REPORTED THAT HE HAS GENERALIZED NUMBNESS AND TINGLING WHICH IS HIS BASELINE. POWERGLIDE IN ANGÉLICA IS SALINE LOCKED AND IT DOES NOT DRAW. IV IN LEFT HAND ALSO SALINE LOCKED. CHRONIC GUNN CATHETER IS IN PLACE AND DRAINING DARK YELLOW OUTPUT. HEEL PROTECTORS ARE IN PLACE TO PREVENT SKIN BREAKDOWN IN HEEL AREA. MEPILEX DRESSING IS IN PLACE OVER COCCYX AND HAS REMAINED DRY/CLEAN. SEE CHART FOR WOUNDS LOCATED ON BUTTOCKS/CHEEK FOLDS. Q2 TURNING IMPLIMENTED TO PREVENT FURTHER SKIN BREAKDOWN. PT'S HILARIO WAS AT BEDSIDE FOR MAJORITY OF SHIFT. NO ACUTE CHANGES NOTED. CALL LIGHT IS WITHIN REACH.
--- NOTE | 2022-03-12 04:38 | NUR ---
THIS RN UNABLE TO DRAW FROM POWERGLIDE. ABLE TO FLUSH SLOWLY WITH SOME REPOSITIONING AND PRESSURE TO OUTSIDE SKIN OF ARM OVER CATHETER. LAB NOTIFIED OF NEED FOR DRAW. PT DENIES PAIN IN ARM WITH FLUSH.
[2022-03-12 05:38] LABS: BASOPHILS ABSOLUTE AUTO 0.06 K/mm3 (0.00-0.23); BASOPHILS PERCENT AUTO 1 % (0-2); EOSINOPHILS ABSOLUTE AUTO 0.78 K/mm3 (0.00-0.68); EOSINOPHILS PERCENT AUTO 7 % (0-6); Hematocrit 30.6 % (37.0-53.0); IMMATURE GRAN ABSOLUTE AUTO 0.13 K/mm3 (0.00-0.10); IMMATURE GRAN PERCENT AUTO 1 % (0-1); LYMPHOCYTES ABSOLUTE AUTO 2.13 K/mm3 (0.84-5.20); LYMPHOCYTES PERCENT AUTO 19 % (21-46); MONOCYTES ABSOLUTE AUTO 1.13 K/mm3 (0.16-1.47); MONOCYTES PERCENT AUTO 10 % (4-13); Mean Corpuscular HGB 31.3 pg (26.0-34.0); Mean Corpuscular HGB Conc 32.7 g/dL (31.5-36.5); Mean Corpuscular Volume 96 fL (80-100); Mean Platelet Volume 10.3 fL (9.1-12.4); NEUTROPHILS ABSOLUTE AUTO 6.96 K/mm3 (1.96-9.15); NEUTROPHILS PERCENT AUTO 62 % (41-73); Platelet Count 193 K/mm3 (150-400); RDW Coefficient Variation 13.9 % (11.7-14.2); RDW Standard Deviation 48.9 fL (35.1-46.3); White Blood Cell Count 11.19 K/mm3 (4.00-11.30)
[2022-03-12 06:05] LABS: Albumin, Blood 2.3 g/dL (3.4-5.0); Anion Gap 6 mmol/L (6-16); Blood Urea Nitrogen 18 mg/dL (8-24); Bun/Creatinine Ratio 20.7 (12.0-20.0); CO2, Blood 25 mmol/L (21-32); Calcium, Blood 8.1 mg/dL (8.5-10.1); Chloride, Blood 101 mmol/L (98-108); Creatinine, Blood 0.87 mg/dL (0.60-1.20); Glomerular Filtration Rate 91 (60-); Glucose, Blood 211 mg/dL (70-99); Magnesium, Blood 1.9 mg/dL (1.6-2.4); Phosphorus, Blood 2.6 mg/dL (2.5-4.9); Potassium, Blood 4.6 mmol/L (3.5-5.5); Sodium, Blood 132 mmol/L (136-145)
--- NOTE | 2022-03-12 08:08 | NUR ---
SHIFT SUMMARY PT AOX4 T/O SHIFT. BREATHING EVEN AND UNLABORED. VSS, SATS 97-100% ON RA. DENIED CP OR ANY DISCOMFORT. REPOSITIONED Q4 D/T REQUEST NOT TO REPOSITION ANY MORE FREQUENTLY. STATED HE REPOSITIONS Q4 AT HOME. PT'S BUE AND BLE PROPPED UP ON PILLOWS D/T SWELLING. THIS RN UPDATES PT'S HILARIO ON PHONE THIS AM.
--- NOTE | 2022-03-12 12:48 | NUR ---
ASSUMED CARE OF PT AT 0700 PT IN ROOM AWAKE WITH SPOUSE AT SIDE. VITALS WNL.
--- NOTE | 2022-03-12 17:38 | NUR ---
END OF SHIFT SUMMARY PT IN ROOM WITH PT MOST OF THE DAY. TRAPEZE SET UP FOR PT TO HELP WITH MOVEMENTS AND PT/OT. A/O X4 AND ABLE TO MAKE NEEDS KNOWN. VITALS WNL. GUNN CATH DRAINING TO GRAVITY. NO BLOODY URINE THIS SHIFT.1 HOME MEDICATION TREATING MS IS NOT AT THIS FACILITY D/T HOW EXPENSIVE THE MEDICATION IS. PT SPOUSE STATES THAT SHE WILL BRING IN A FEW DOSES IN THE MORNING BUT IS WORRIED IT COULD GET LOST. SPOUSE REPORTS THE MEDICATION IS UPWARDS OF $7,000 A MONTH. MULTIPLE SMALL EXCORIATION ON COCCYX AREA. FOAM BANDAGE APPLIED AND IS C/D/I. RIGHT ARM SWOLLEN, PT/OT RECOMMENDATION OF LYMPH SLEEVE APPLICATION, AND SNF TRANSFER D/T BUE WEAKNESS. PT IS ABLE TO SLIGHTLY MOVE FEET AND WIGGLE TOES WHILE IN BED. NO MEDICATIONS OR FLUIDS RUNNING AT THIS TIME. WILL CONTINUE TO MONITOR UNTIL HAND OFF.
--- NOTE | 2022-03-13 05:09 | NUR ---
PT SUMMARY: NO ACUTE CHANGE FOR THE SHIFT. VITALS HAS BEEN STABLE. MEDICATED WITH TYLENOL X1 BEFORE BED, PT STATED ITS PART OF HIS BEDTIME ROUTINE FOR DISCOMFORT, PT SLEPT MOST OF THE SHIFT. ALERT AND ORIENTED, PLEASANT AND COOPERATIVE. CATH CARE PRVIDED, PT HAS BEEN REPOSITIONED IN BED FOR COMFORT, GUNN DRAINING PATENT VIA GRAVITY. PT ABLE TO MAKE NEEDS KNOWN, CALL LIGHTS IN REACH WILL REPORT TO ONCOMING SHIFT
--- NOTE | 2022-03-13 09:01 | NUR ---
INITIAL ASSESSMENT PATIENT ALERT AND ORIENTED X 4, AFEBRILE. PATIENT DENIES PAIN. PATIENT HAS MINIMAL MOVEMENT TO EXTREMITIES DUE TO MULTIPLE SCLEROSIS. PATIENT SATTING 90% AND GREATER ON RA. PATIENT IN SR, HR IN THE 80S. SBP IN THE 140S. ARMS AND LEGS EDEMATOUS. GI APPEARS WNL. CHRONIC GUNN DRAINING YELLOW COLORED URINE. SKIN PALE. SCATTERED SCABS NOTED TO BILAT ARMS. EXCORATIONS ALL OVER BUTTOCKS. BED LOW, CALL LIGHT IN REACH. AT BEDSIDE. WILL CONTINUE TO MONITOR PATIENT FREQUENTLY THROUGHOUT SHIFT.
--- NOTE | 2022-03-13 12:20 | NUR ---
PATIENT AFEBRILE. HR IN THE 90S. SBP IN THE 130S. NO ACUTE CHANGES TO NOTE ON AT THIS TIME. NO COMPLAINTS FROM PATIENT. WILL CONTINUE TO MONITOR.
--- NOTE | 2022-03-13 15:33 | NUR ---
SHIFT SUMMARY PATIENT NAPPED ON AND OFF DURING SHIFT. PATIENT REMAINED CALM, PLEASANT AND COOPERATIVE. PATIENT REMAINED ALERT AND ORIENTED X 4. PATIENT REMAINED AFEBRILE. PATIENT HAS HAD NO COMPLAINTS OF PAIN OR DISCOMFORT. RESP REMAINS WNL. PATIENT HAS REMAINED SR, HR 80S TO 90S. SBP 130S TO 140S. NO BM THIS SHIFT. 1475 OF YELLOW COLORED URINE OUT FROM GUNN. NO CHANGES TO SKIN NOTED. PATIENT REPOSITIONED Q2H. PHYSICAL THERAPY WORKED WITH PATIENT THIS SHIFT. PATIENT HAD COMPLETE BED BATH. HAS BEEN IN AND OUT ALL DAY. PATIENT WILL BE TRANSFERRED TO MEDICAL FLOOR SHORTLY.
--- NOTE | 2022-03-13 15:45 | NUR ---
PATIENT TRANSFERRED TO MEDICAL FLOOR, ROOM 325. ALL BELONGINGS SENT WITH PATIENT. FOLLOWED.
--- NOTE | 2022-03-13 17:44 | NUR ---
SHIFT SUMMARY PATIENT TRANSFER FROM PCU. AWAITING SNF PLACEMENT. A&OX4. HX OF MS WITH MINIMAL MOVEMENT OF EXTREMITIES. PATIENT IS A FEEDER. Q2H TURNING. ESCORIATION ON BUTTOCK WITH MEPILEX DRESSING IN PLACE. CHRONIC GUNN IN PLACE, DRAINING TO GRAVITY. NO C/O PAIN, SOB. VSS. WILL CONTINUE TO MONITOR.
--- NOTE | 2022-03-14 05:39 | NUR ---
SHIFT SUMMARY NO ACUTE CHANGES THIS SHIFT. AOX4. VSS. DENIES PAIN, N/V OR DYSPNEA. +3 EDEMA BLE. GUNN PATENT & DRAINING. CALL LIGHT IN REACH & PT ABLE TO MAKE NEEDS KNOWN, WILL MONITOR.
--- NOTE | 2022-03-14 19:09 | NUR ---
END OF SHIFT SUMMARY: PATIENT'S URINE IS A LIGHT YELLOW WITH SEDIMENT NOTED. GUNN WAS FREE FLOWING THROUGHOUT SHIFT. SOME SCROTAL EDEMA NOTED. PATIENT DENIED BLADDER OR PENILE PAIN OR DISCOMFORT. PATIENT REPORTED THAT HE WAS SATISFIED WITH HIS LEVEL OF COMFORT THROUGHOUT THE DAY. DRESSING ON COCCYX CHANGED TODAY. PATIENT'S WAS ABLE TO VIEW IT AND REPORTED THAT IT IS IMPROVING. SKIN IS STILL ROUGH AND A DARK/JUDD RED COLOR. BLANCHABLE. NO DRAINAGE NOTED. PATIENT HAS SOME GROSS MOVEMENT OF HIS LOWER EXTREMITIES. PATIENT HAS GROSS MOVEMENT AND SOME FINE MOVEMENT OF HIS UPPER EXTREMITIES THAT APPEARED TO IMPROVE THROUGHOUT THE SHIFT. FOR EXAMPLE, BY THE END OF THE SHIFT, PATIENT WAS ABLE TO HOLD HIS BODY TO THE SIDE WITH HIS RIGHT ARM AND ASSIST WITH REPOSITIONING WELL FEED HIMSELF HIS DINNER.
--- NOTE | 2022-03-15 03:49 | NUR ---
SHIFT SUMMARY: NO ACUTE CHANGES THROUGHOUT THE NIGHT. PT REMAINS A/OX4, 2 PERSON ASSIST TURNING/REPOSITIONING IN BED. ACETAMINOPHEN ADMINISTRATED X1 THIS MORNING FOR REPORTED HEADACHE. OTHERWISE PT HAS BEEN ABLE TO SLEEP THROUGHOUT THE NIGHT. GUNN IN PLACE DRAINING WELL. BED ALARM ACTIVATED, BED IN LOW POSITION, CALL WADE AND BELONGINGS IN REACH.
[2022-03-15] MEDS ORDERED: NYSTOP15 GM TOP (11:39)
[2022-03-15 13:59] LABS: Influenza A, PCR NEGATIVE (NEGATIVE); Influenza B, PCR NEGATIVE (NEGATIVE); Resp Syncytial Virus, PCR NEGATIVE (NEGATIVE); SARS-Cov-2 (COVID-19) PCR, MMC NEGATIVE (NEGATIVE)
[2022-03-15] MEDS ORDERED: ACET500 PO (15:39)
[2022-03-15] MEDS ORDERED: LEVO750 PO (15:40)
--- NOTE | 2022-03-15 16:24 | NUR ---
DISCHARGE SUMMARY: PATIENT DENIED PAIN OR DISCOMFORT THROUGHOUT THE SHIFT. PATIENT CONTINUES TO HAVE LIGHT YELLOW URINE IN THE GUNN WITH SOME SEDIMENT. PATIENT ABLE TO FEED HIMSELF LUNCH AND MINIMALLY ASSIST WITH REPOSITIONING. AT BEDSIDE THROUGHOUT MOST OF THE SHIFT. PATIENT'S DISCHARGE SET UP FOR 1600 TO [facility]. PATIENT'S NOTIFIED AND AT THE BEDSIDE. PATIENT'S HOME MEDICATIONS SENT HOME WITH THE . DISCHARGE INSTRUCTIONS AND ORDERS SENT TO FACILITY VIA CARE MANAGEMENT PACKET. REPORT CALLED TO SHAMIKA AT [facility]. PATIENT DISCHARGED VIA GURNEY AT 1600. PATIENT STABLE AT TIME OF DISCHARGE.
== END 2022-03-15 16:00 | DRG 698 ==
LOC: ER 05:28 → PCU 10:36 → MEDS 03-13 16:17
PROVIDERS: Emergency Medicine; Internal Medicine; Student in an Organized Health Care Education/Training Program; ADMIT Internal Medicine
DX: T83.511A Infection and inflammatory reaction due to indwelling urethral catheter, initial encounter (principal); A41.4 Sepsis due to anaerobes; R53.2 Functional quadriplegia; R65.20 Severe sepsis without septic shock; A41.51 Sepsis due to Escherichia coli [E. coli]; E87.2 Acidosis; E87.1 Hypo-osmolality and hyponatremia; I10 Essential (primary) hypertension; E03.9 Hypothyroidism, unspecified; G35 Multiple sclerosis; Z20.822 Contact with and (suspected) exposure to COVID-19; E55.9 Vitamin D deficiency, unspecified; R19.7 Diarrhea, unspecified; Z88.1 Allergy status to other antibiotic agents; Z88.8 Allergy status to other drugs, medicaments and biological substances; Z91.018 Allergy to other foods; E86.1 Hypovolemia; F32.A Depression, unspecified; E53.8 Deficiency of other specified B group vitamins; Z98.890 Other specified postprocedural states; Z90.49 Acquired absence of other specified parts of digestive tract; Z96.642 Presence of left artificial hip joint; Z79.899 Other long term (current) drug therapy; L89.309 Pressure ulcer of unspecified buttock, unspecified stage
CPT/HCPCS: 0241U; 36415; 80048; 80053; 80069; 81001; 83605; 83735; 84436; 84443; 85025; 87077; 87086; 87186; 94760; 96361; 96365; 96367; 97110; 97162; 97530; 99285-25; A9270; C1751; J1650; J1956; J2543; J7030; J7120

== ENCOUNTER 2022-04-26 13:58 | Emergency (ER) | payer MEDICARE, OTHER ==
[~2022-04-26] VITALS: Ht 185.4 cm; Wt 114.8 kg
[~2022-04-26 13:58] MED LIST changes: +ACET500 PO; +COLESEVELAM HC625 MG PO; +FERROUS SULFAT325 M3 PO; +LEVO750 PO; +NYSTOP15 GM TOP; +Nitrofurantoin100 M1 PO; +REFRESH CELLUVISC BOTHEYES
[2022-04-26 14:38] LABS: BASOPHILS ABSOLUTE AUTO 0.12 K/mm3 (0.00-0.23); BASOPHILS PERCENT AUTO 1 % (0-2); EOSINOPHILS ABSOLUTE AUTO 0.68 K/mm3 (0.00-0.68); EOSINOPHILS PERCENT AUTO 5 % (0-6); Hematocrit 38.6 % (37.0-53.0); Hemoglobin 12.9 g/dL (13.5-17.5); IMMATURE GRAN ABSOLUTE AUTO 0.13 K/mm3 (0.00-0.10); IMMATURE GRAN PERCENT AUTO 1 % (0-1); LYMPHOCYTES ABSOLUTE AUTO 1.67 K/mm3 (0.84-5.20); LYMPHOCYTES PERCENT AUTO 11 % (21-46); MONOCYTES ABSOLUTE AUTO 1.17 K/mm3 (0.16-1.47); MONOCYTES PERCENT AUTO 8 % (4-13); Mean Corpuscular HGB 30.8 pg (26.0-34.0); Mean Corpuscular HGB Conc 33.4 g/dL (31.5-36.5); Mean Corpuscular Volume 92 fL (80-100); Mean Platelet Volume 10.2 fL (9.1-12.4); NEUTROPHILS ABSOLUTE AUTO 11.37 K/mm3 (1.96-9.15); NEUTROPHILS PERCENT AUTO 75 % (41-73); Platelet Count 249 K/mm3 (150-400); RDW Standard Deviation 46.7 fL (35.1-46.3); Red Blood Cell Count 4.19 M/mm3 (4.30-5.90); White Blood Cell Count 15.14 K/mm3 (4.00-11.30)
[2022-04-26 14:53] LABS: Albumin, Blood 3.1 g/dL (3.4-5.0); Albumin/Globulin Ratio 0.7 (0.8-1.8); Bilirubin, Total 0.3 mg/dL (0.1-1.0); Bun/Creatinine Ratio 23.5 (12.0-20.0); Calcium, Blood 8.7 mg/dL (8.5-10.1); Creatinine, Blood 0.64 mg/dL (0.60-1.20); Globulin, Blood 4.3 g/dL (2.2-4.0); Potassium, Blood 4.2 mmol/L (3.5-5.5); Total Protein, Blood 7.4 g/dL (6.4-8.2)
[2022-04-26 16:46] LABS: Source, Urine Foley catheter
[2022-04-26 16:50] LABS: Appearance, Urine Bloody (Clear); Bilirubin, Urine Neg (Neg); Blood, Urine 5+ (Neg); Color, Urine Red (P-Yellow); Glucose Qualitative, Urine 4+ (Neg); Ketones, Urine Neg (Neg); Leukocyte Esterase, Urine 1+ (Neg); Nitrite, Urine Neg (Neg); Protein, Urine 3+ (Neg); Specific Gravity, Urine 1.015 (1.003-1.022); Urobilinogen, Urine NORM (Normal)
[2022-04-26 17:04] LABS: Bacteria Mod /hpf; Red Blood Cells, Urine TNTC /hpf (0-2); Squamous Epithelial Cells Rare /hpf (Few)
[2022-04-26 17:05] LABS: Mucus Light (0-Heavy); Renal Epithelial Rare /hpf (0-Rare)
[2022-04-26] MEDS ORDERED: CIPR500 PO (17:52)
== END 2022-04-26 19:56 | disposition home or self-care (01) ==
LOC: ER 13:58
PROVIDERS: Emergency Medicine
DX: R31.9 Hematuria, unspecified (principal); I10 Essential (primary) hypertension; E78.5 Hyperlipidemia, unspecified; E03.9 Hypothyroidism, unspecified; Z96.0 Presence of urogenital implants; Z88.0 Allergy status to penicillin; Z88.8 Allergy status to other drugs, medicaments and biological substances; Z91.018 Allergy to other foods; Z79.899 Other long term (current) drug therapy; Z79.82 Long term (current) use of aspirin
CPT/HCPCS: 36415; 51702; 51798; 74019; 80053; 81001; 85025; 87077; 87086; 87186; 96374-59; 96375-59; 99284-25; J2270; J2405

== ENCOUNTER 2022-05-06 12:56 | Inpatient (IN) | payer MEDICARE, OTHER ==
[~2022-05-06] VITALS: Ht 182.9 cm; Wt 120.3 kg
[2022-05-06 13:31] LABS: BASOPHILS ABSOLUTE AUTO 0.09 K/mm3 (0.00-0.23); BASOPHILS PERCENT AUTO 1 % (0-2); EOSINOPHILS PERCENT AUTO 6 % (0-6); Hematocrit 36.8 % (37.0-53.0); Hemoglobin 12.7 g/dL (13.5-17.5); IMMATURE GRAN ABSOLUTE AUTO 0.11 K/mm3 (0.00-0.10); IMMATURE GRAN PERCENT AUTO 1 % (0-1); LYMPHOCYTES ABSOLUTE AUTO 1.47 K/mm3 (0.84-5.20); LYMPHOCYTES PERCENT AUTO 9 % (21-46); MONOCYTES ABSOLUTE AUTO 1.18 K/mm3 (0.16-1.47); MONOCYTES PERCENT AUTO 7 % (4-13); Mean Corpuscular HGB 32.1 pg (26.0-34.0); Mean Corpuscular HGB Conc 34.5 g/dL (31.5-36.5); Mean Corpuscular Volume 93 fL (80-100); Mean Platelet Volume 10.4 fL (9.1-12.4); NEUTROPHILS ABSOLUTE AUTO 12.53 K/mm3 (1.96-9.15); NEUTROPHILS PERCENT AUTO 77 % (41-73); Platelet Count 281 K/mm3 (150-400); RDW Coefficient Variation 14.2 % (11.7-14.2); RDW Standard Deviation 48.7 fL (35.1-46.3); Red Blood Cell Count 3.96 M/mm3 (4.30-5.90); White Blood Cell Count 16.28 K/mm3 (4.00-11.30)
[2022-05-06 13:37] LABS: Source, Urine Foley catheter
[2022-05-06 13:45] LABS: Appearance, Urine Cloudy (Clear); Bilirubin, Urine Neg (Neg); Blood, Urine 2+ (Neg); Glucose Qualitative, Urine 4+ (Neg); Ketones, Urine Neg (Neg); Leukocyte Esterase, Urine 3+ (Neg); Nitrite, Urine Neg (Neg); Protein, Urine 2+ (Neg); Urobilinogen, Urine NORM (Normal)
[2022-05-06 13:47] LABS: Color, Urine Pale Yellow (P-Yellow)
[2022-05-06 13:53] LABS: Albumin, Blood 2.9 g/dL (3.4-5.0); Albumin/Globulin Ratio 0.6 (0.8-1.8); Bilirubin, Total 0.4 mg/dL (0.1-1.0); Bun/Creatinine Ratio 32.4 (12.0-20.0); Calcium, Blood 9.2 mg/dL (8.5-10.1); Creatinine, Blood 0.74 mg/dL (0.60-1.20); Globulin, Blood 4.9 g/dL (2.2-4.0); Magnesium, Blood 2.2 mg/dL (1.6-2.4); Potassium, Blood 4.9 mmol/L (3.5-5.5); Total Protein, Blood 7.8 g/dL (6.4-8.2)
[2022-05-06 14:02] LABS: White Blood Cells, Urine 50-100 /hpf (0-5)
[2022-05-06 14:04] LABS: Red Blood Cells, Urine 0-2 /hpf (0-2)
[2022-05-06 14:05] LABS: Bacteria Many /hpf; Squamous Epithelial Cells Rare /hpf (Few)
[2022-05-06 14:33] LABS: Influenza A, PCR NEGATIVE (NEGATIVE); Influenza B, PCR NEGATIVE (NEGATIVE); Resp Syncytial Virus, PCR NEGATIVE (NEGATIVE); SARS-Cov-2 (COVID-19) PCR, MMC NEGATIVE (NEGATIVE)
--- NOTE | 2022-05-06 17:00 | NUR ---
LATE ENTRY: ADMISSION TO MEDICAL FLOOR: PT A&O X2, DRWOSEY EASILY AROUSABLE. PT TRASFERED INTO BED WITH SLIDER SHEET. PT HAD AT BEDSIDE TO HELP WITH ADMISSION HX, MEDICATION HX, AND OREINATATION TO THE ROOM. PT HAD FLUIDS INFUSING AT TIME OF ADMISSION. PT BASELINE WC BOUND. PT HAS HX OF MS, WITH NWB BLE AND LIMITED ROM AND CONTRACTURES BUE. PT ABLE TO PRESH CALL LIGHT, NO SOFT TOUCH CALL LIGHT NEEDED AT THIS TIME.
--- NOTE | 2022-05-07 04:46 | NUR ---
Patient did well overnight, slow to respond but answers all orientation questions correctly. Taylor in place. Bed bath given. IV antibiotics for UTI. Turned patient in bed q2hr. Dressing on sacral wound changed. Patient refused his evening stool softeners and had a bowel movement. Evening glucose elevated 492 called provider and recieved orders to start lantus 20 units tonight and once daily starting tomorrow morning. Patient states he does not take any diabatic medication and does not check his glucose at home. Pharmacy called stating we do not carry patients home med methylphenidate, called and left a message with patient for her to bring home dose.
[2022-05-07 05:29] LABS: BASOPHILS PERCENT AUTO 1 % (0-2); EOSINOPHILS ABSOLUTE AUTO 0.91 K/mm3 (0.00-0.68); EOSINOPHILS PERCENT AUTO 7 % (0-6); Hematocrit 33.2 % (37.0-53.0); Hemoglobin 11.1 g/dL (13.5-17.5); IMMATURE GRAN ABSOLUTE AUTO 0.08 K/mm3 (0.00-0.10); IMMATURE GRAN PERCENT AUTO 1 % (0-1); LYMPHOCYTES ABSOLUTE AUTO 2.05 K/mm3 (0.84-5.20); LYMPHOCYTES PERCENT AUTO 15 % (21-46); MONOCYTES ABSOLUTE AUTO 1.14 K/mm3 (0.16-1.47); MONOCYTES PERCENT AUTO 9 % (4-13); Mean Corpuscular HGB 31.1 pg (26.0-34.0); Mean Corpuscular HGB Conc 33.4 g/dL (31.5-36.5); Mean Corpuscular Volume 93 fL (80-100); Mean Platelet Volume 10.8 fL (9.1-12.4); NEUTROPHILS ABSOLUTE AUTO 9.14 K/mm3 (1.96-9.15); NEUTROPHILS PERCENT AUTO 68 % (41-73); Platelet Count 239 K/mm3 (150-400); RDW Standard Deviation 48.1 fL (35.1-46.3); Red Blood Cell Count 3.57 M/mm3 (4.30-5.90); White Blood Cell Count 13.42 K/mm3 (4.00-11.30)
[2022-05-07 06:02] LABS: Albumin, Blood 2.5 g/dL (3.4-5.0); Albumin/Globulin Ratio 0.6 (0.8-1.8); Bilirubin, Total 0.4 mg/dL (0.1-1.0); Bun/Creatinine Ratio 33.6 (12.0-20.0); Calcium, Blood 8.6 mg/dL (8.5-10.1); Creatinine, Blood 0.68 mg/dL (0.60-1.20); Globulin, Blood 4.2 g/dL (2.2-4.0); Potassium, Blood 3.9 mmol/L (3.5-5.5); Total Protein, Blood 6.7 g/dL (6.4-8.2)
[2022-05-07 16:29] LABS: Vancomycin, Trough 22.5 ug/mL (5.0-10.0)
--- NOTE | 2022-05-07 17:28 | NUR ---
SHIFT SUMMARY: PT A&O X4, PLEASANT AND DROWSY. PT RECEVIED IX ABX WITH ANY ADVERSE EFFECTS OR SYMPTOMS. PT HAD MULITPLE INCONTIENT SOFT LIQUID STOOL. PT TURNED FREQUENTLY DUE TO BED BOUND AND EXCORIATION ON BUTTOCKS. PT CONTIUNE TO HAVE HIGH CBG THROUGH THE SHIFT. DR. PLATT CONTACTED ON LUNCH CB. PT SLIDING SCALE FOR HUMULIN R CHANGE FROM LOW TO HIGH SLIDING SCALE. PT A1C IS 11. PT AND EDUCATED ON BLOOD GLUCOSE CHECKS AND INSULIN ADMINISTRATION. COMNTIUNED AND REFORCE TEACHING NEEDED. DIETAIN CONSULT ORDERD BY THE PROVIDER. PT HAD NO COMPLIANTS OF PAIN OR DISCOMFORT. PT IN BED WITH CALL LIGHT WITHIN REACH.
[2022-05-08 05:10] LABS: BASOPHILS ABSOLUTE AUTO 0.07 K/mm3 (0.00-0.23); BASOPHILS PERCENT AUTO 1 % (0-2); EOSINOPHILS ABSOLUTE AUTO 0.81 K/mm3 (0.00-0.68); EOSINOPHILS PERCENT AUTO 8 % (0-6); Hematocrit 30.5 % (37.0-53.0); Hemoglobin 10.5 g/dL (13.5-17.5); IMMATURE GRAN ABSOLUTE AUTO 0.07 K/mm3 (0.00-0.10); IMMATURE GRAN PERCENT AUTO 1 % (0-1); LYMPHOCYTES ABSOLUTE AUTO 1.86 K/mm3 (0.84-5.20); LYMPHOCYTES PERCENT AUTO 17 % (21-46); MONOCYTES ABSOLUTE AUTO 0.99 K/mm3 (0.16-1.47); MONOCYTES PERCENT AUTO 9 % (4-13); Mean Corpuscular HGB Conc 34.4 g/dL (31.5-36.5); Mean Corpuscular Volume 93 fL (80-100); Mean Platelet Volume 10.2 fL (9.1-12.4); NEUTROPHILS ABSOLUTE AUTO 7.02 K/mm3 (1.96-9.15); NEUTROPHILS PERCENT AUTO 65 % (41-73); Platelet Count 215 K/mm3 (150-400); RDW Coefficient Variation 14.1 % (11.7-14.2); RDW Standard Deviation 48.5 fL (35.1-46.3); Red Blood Cell Count 3.28 M/mm3 (4.30-5.90); White Blood Cell Count 10.82 K/mm3 (4.00-11.30)
[2022-05-08 05:40] LABS: Bun/Creatinine Ratio 23.5 (12.0-20.0); Calcium, Blood 7.8 mg/dL (8.5-10.1); Creatinine, Blood 0.64 mg/dL (0.60-1.20); Potassium, Blood 3.9 mmol/L (3.5-5.5)
--- NOTE | 2022-05-08 06:05 | NUR ---
SUMMARY: Patient did well overnight. Aox4. VSS. Patient called and updated her. Turned patient in bed [id number]. IV fluids running. Printed out diabetic education materials for patient and placed them at bedside for her to see tomorrow. Taylor in place draining clear yellow urine.
--- NOTE | 2022-05-08 16:57 | NUR ---
SHIFT SUMMARY NO ACUTE CHANGES DURING SHIFT. PT ALERT AND ORIENTED, CALLS APPROPRIATELY. GUNN IN PLACE, DRAINING TO GRAVITY. SKIN CARE AND FREQUENT TURNING COMPLETED D/T SKIN BREAKDOWN TO BUTTOCKS. PLAN TO D/C HOME TOMORROW WITH . WILL CONTINUE TO MONITOR. CALL LIGHT WITHIN REACH.
--- NOTE | 2022-05-09 04:19 | NUR ---
A/OX 3-4; CONFUSED AT TIMES, SLOW TO RESPOND. CALM AND COOPERATIVE. 2X ASSIST TO REPOSITION /USE LIFT. CHRONIC GUNN PATENT. ABX PER ORDERS. TELE: SR WITH HR 80's. DENIES PAIN AT THIS TIME. LIKELY WILL DC LATER TODAY ( TO BRING W/C FROM HOME). BED ALARM SET. CALL LIGHT IN REACH; ENCOURAGED TO MAKE NEEDS KNOWN. FREQUENT ROUNDING /ANTICIPATION OF NEEDS.
[2022-05-09 06:00] LABS: Vancomycin, Trough 8.5 ug/mL (5.0-10.0)
[2022-05-09] MEDS ORDERED: SULFAMETHOXAZO1 EAC1 UD (11:01)
[2022-05-09] MEDS ORDERED: BASAGLAR K100 UNIT/1 SC (11:02)
[2022-05-09] MEDS ORDERED: HUMULIN R100 UNIT/2 (11:03)
== END 2022-05-09 15:08 | disposition home health service (06) | DRG 698 ==
LOC: ER 12:56 → MEDS 12:57
PROVIDERS: Emergency Medicine; Internal Medicine; ADMIT Internal Medicine
DX: T83.511A Infection and inflammatory reaction due to indwelling urethral catheter, initial encounter (principal); A41.9 Sepsis, unspecified organism; R65.20 Severe sepsis without septic shock; N39.0 Urinary tract infection, site not specified; G35 Multiple sclerosis; I10 Essential (primary) hypertension; E03.9 Hypothyroidism, unspecified; Z20.822 Contact with and (suspected) exposure to COVID-19; E78.5 Hyperlipidemia, unspecified; F32.A Depression, unspecified; E11.39 Type 2 diabetes mellitus with other diabetic ophthalmic complication; H42 Glaucoma in diseases classified elsewhere; E11.42 Type 2 diabetes mellitus with diabetic polyneuropathy; E11.65 Type 2 diabetes mellitus with hyperglycemia; K21.9 Gastro-esophageal reflux disease without esophagitis; K52.9 Noninfective gastroenteritis and colitis, unspecified; Z96.642 Presence of left artificial hip joint; E55.9 Vitamin D deficiency, unspecified; Z88.0 Allergy status to penicillin; Z88.8 Allergy status to other drugs, medicaments and biological substances; Z88.1 Allergy status to other antibiotic agents; Z91.018 Allergy to other foods; Z79.899 Other long term (current) drug therapy; Z79.82 Long term (current) use of aspirin; Z98.890 Other specified postprocedural states; Z90.49 Acquired absence of other specified parts of digestive tract; Z74.01 Bed confinement status; Y84.6 Urinary catheterization as the cause of abnormal reaction of the patient, or of later complication, without mention of misadventure at the time of the procedure
CPT/HCPCS: 0241U; 36415; 71045; 80048; 80053; 80202; 81001; 82947; 83036; 83605; 83690; 83735; 83880; 84484; 85025; 87040; 87077; 87086; 87186; 96361; 96365; 96366; 96375; 97110; 97162; 97166; 97530; 97535; 99285-25; A9270; J0690; J0696; J1650; J1815; J3370; J7030; J7050

== ENCOUNTER 2022-05-14 06:09 | Emergency (ER) | payer MEDICARE, OTHER ==
[~2022-05-14] VITALS: Ht 185.4 cm; Wt 108.9 kg
[~2022-05-14 06:09] MED LIST changes: +BASAGLAR K100 UNIT/1 SC; +HUMULIN R100 UNIT/2; +SULFAMETHOXAZO1 EAC1 UD
[2022-05-14 07:52] LABS: BASOPHILS ABSOLUTE AUTO 0.12 K/mm3 (0.00-0.23); BASOPHILS PERCENT AUTO 1 % (0-2); EOSINOPHILS ABSOLUTE AUTO 0.85 K/mm3 (0.00-0.68); EOSINOPHILS PERCENT AUTO 7 % (0-6); Hematocrit 35.8 % (37.0-53.0); IMMATURE GRAN PERCENT AUTO 2 % (0-1); LYMPHOCYTES PERCENT AUTO 18 % (21-46); MONOCYTES ABSOLUTE AUTO 1.07 K/mm3 (0.16-1.47); MONOCYTES PERCENT AUTO 9 % (4-13); Mean Corpuscular HGB 31.3 pg (26.0-34.0); Mean Corpuscular HGB Conc 33.5 g/dL (31.5-36.5); Mean Corpuscular Volume 94 fL (80-100); Mean Platelet Volume 9.9 fL (9.1-12.4); NEUTROPHILS ABSOLUTE AUTO 8.01 K/mm3 (1.96-9.15); NEUTROPHILS PERCENT AUTO 64 % (41-73); Platelet Count 285 K/mm3 (150-400); RDW Coefficient Variation 14.6 % (11.7-14.2); RDW Standard Deviation 50.1 fL (35.1-46.3); Red Blood Cell Count 3.83 M/mm3 (4.30-5.90); White Blood Cell Count 12.55 K/mm3 (4.00-11.30)
[2022-05-14 08:05] LABS: Albumin, Blood 3.1 g/dL (3.4-5.0); Albumin/Globulin Ratio 0.7 (0.8-1.8); Bilirubin, Total 0.2 mg/dL (0.1-1.0); Bun/Creatinine Ratio 16.4 (12.0-20.0); Calcium, Blood 8.7 mg/dL (8.5-10.1); Creatinine, Blood 0.79 mg/dL (0.60-1.20); Globulin, Blood 4.3 g/dL (2.2-4.0); Potassium, Blood 4.3 mmol/L (3.5-5.5); Total Protein, Blood 7.4 g/dL (6.4-8.2)
[2022-05-14 08:59] LABS: Influenza A, PCR NEGATIVE (NEGATIVE); Influenza B, PCR NEGATIVE (NEGATIVE); Resp Syncytial Virus, PCR NEGATIVE (NEGATIVE); SARS-Cov-2 (COVID-19) PCR, MMC NEGATIVE (NEGATIVE)
== END 2022-05-14 13:01 | disposition home or self-care (01) ==
LOC: ER 06:09
PROVIDERS: Emergency Medicine
DX: R06.02 Shortness of breath (principal); Z20.822 Contact with and (suspected) exposure to COVID-19
CPT/HCPCS: 0241U; 36415; 71045; 71260; 80053; 83880; 84484; 85025; 85379; 93005; 93010; Q9967

== ENCOUNTER → 2022-09-13 | Outpatient (CLI) | payer MEDICARE, OTHER ==
[2022-09-13 13:48] LABS: Bun/Creatinine Ratio 21.7 (12.0-20.0); Calcium, Blood 8.9 mg/dL (8.5-10.1); Creatinine, Blood 0.83 mg/dL (0.60-1.20); Potassium, Blood 4.5 mmol/L (3.5-5.5); Thyroid Stimulating Hormone 18.9 uIU/mL (0.360-4.800)
== END | disposition home or self-care (01) ==
LOC: LAB HH 11:00
PROVIDERS: Internal Medicine
DX: G35 Multiple sclerosis (principal); I10 Essential (primary) hypertension; E11.65 Type 2 diabetes mellitus with hyperglycemia; E03.9 Hypothyroidism, unspecified
CPT/HCPCS: 80048; 83036; 84443

== ENCOUNTER → 2022-12-25 | Outpatient (CLI) | payer MEDICARE, OTHER ==
[2022-12-25 11:47] LABS: Alanine Aminotransfer (ALT/SGP 29 U/L (12-78); Albumin, Blood 3.3 g/dL (3.4-5.0); Albumin/Globulin Ratio 0.7 (0.8-1.8); Alk Phos 96 U/L (50-136); Aspartate Aminotrans (AST/SGOT 16 U/L (12-37); Bilirubin, Direct 0.1 mg/dL (0.0-0.3); Bilirubin, Indirect 0.2 mg/dL (0.1-0.7); Bilirubin, Total 0.3 mg/dL (0.1-1.0); CHOL/HDL RATIO 4.2; Cholesterol 113 mg/dL (50-200); Globulin, Blood 4.8 g/dL (2.2-4.0); HDL Cholesterol 27 mg/dL (>39); LDL/HDL RATIO 1.2; Low Density Lipoprotein Chol 31 mg/dL (0-110); Magnesium, Blood 2.1 mg/dL (1.6-2.4); Total Protein, Blood 8.1 g/dL (6.4-8.2); Triglycerides 273 mg/dL (30-160); Very Low Density Lipoprot Chol 54 mg/dL (6-32)
== END | disposition home or self-care (01) ==
LOC: LAB SHORT 10:16 → LAB 10:16
PROVIDERS: Internal Medicine
DX: G35 Multiple sclerosis (principal); I10 Essential (primary) hypertension; E11.42 Type 2 diabetes mellitus with diabetic polyneuropathy; E03.9 Hypothyroidism, unspecified; E55.9 Vitamin D deficiency, unspecified; E78.5 Hyperlipidemia, unspecified; Z79.899 Other long term (current) drug therapy
CPT/HCPCS: 80061; 80076; 82306; 83735; 84443

== ENCOUNTER → 2023-08-06 | Outpatient (CLI) | payer MEDICARE, OTHER ==
[2023-08-07 18:31] LABS: Adenovirus F 40/41 Not Detected (NOT DETECT); Astrovirus Not Detected (NOT DETECT); Campylobacter Sp Not Detected (NOT DETECT); Cryptosporidium Not Detected (NOT DETECT); Cyclospora Cayetanensis Not Detected (NOT DETECT); E. Coli O157 Not Detected (NOT DETECT); Entamoeba Histolytica Not Detected (NOT DETECT); Enteroaggregative E. coli-EAEC Not Detected (NOT DETECT); Enteropathogenic E. coli-EPEC Not Detected (NOT DETECT); Enterotoxigenic E. coli-ETEC Not Detected (NOT DETECT); Giardia Lamblia Not Detected (NOT DETECT); Norovirus GI/GII Not Detected (NOT DETECT); Plesiomonas Shigelloides Not Detected (NOT DETECT); Rotavirus A Not Detected (NOT DETECT); Salmonella Sp Not Detected (NOT DETECT); Sapovirus Not Detected (NOT DETECT); Shiga Toxin-prod E. coli-STEC Not Detected (NOT DETECT); Shigella/Enteroin E. coli-EIEC Not Detected (NOT DETECT); Vibrio Cholerae Not Detected (NOT DETECT); Vibrio Sp Not Detected (NOT DETECT); Yersinia Enterocolitica Not Detected (NOT DETECT)
== END ==
LOC: LAB 20:00 → LAB SHORT 20:00 → LAB FUT 09-16 08:00 → EDSTATUS 09-16 08:00
PROVIDERS: Internal Medicine
DX: R19.7 Diarrhea, unspecified (principal)
CPT/HCPCS: 87507

== ENCOUNTER → 2024-01-04 | Outpatient (CLI) | payer MEDICARE, OTHER ==
[2024-01-04 10:45] LABS: Source, Urine Foley catheter
[2024-01-04 13:11] LABS: Appearance, Urine Hazy (Clear); Bilirubin, Urine Neg (Neg); Blood, Urine 5+ (Neg); Color, Urine Yellow (P-Yellow); Glucose Qualitative, Urine Neg (Neg); Ketones, Urine Neg (Neg); Leukocyte Esterase, Urine 2+ (Neg); Nitrite, Urine Neg (Neg); Protein, Urine 1+ (Neg); Specific Gravity, Urine 1.015 (1.003-1.022); Urobilinogen, Urine NORM (Normal)
[2024-01-04 13:28] LABS: Bacteria Many /hpf; Squamous Epithelial Cells Rare /hpf (Few)
== END | disposition home or self-care (01) ==
LOC: LAB SHORT 10:42 → LAB 10:42
PROVIDERS: Internal Medicine
DX: N39.0 Urinary tract infection, site not specified (principal); E11.9 Type 2 diabetes mellitus without complications; G35 Multiple sclerosis
CPT/HCPCS: 81001; 87086

== ENCOUNTER → 2024-03-25 | Outpatient (CLI) | payer MEDICARE, OTHER ==
[2024-03-25 12:39] LABS: Adenovirus F 40/41 Not Detected (NOT DETECT); Astrovirus Not Detected (NOT DETECT); Campylobacter Sp Not Detected (NOT DETECT); Cryptosporidium Not Detected (NOT DETECT); Cyclospora Cayetanensis Not Detected (NOT DETECT); E. Coli O157 Not Detected (NOT DETECT); Entamoeba Histolytica Not Detected (NOT DETECT); Enteroaggregative E. coli-EAEC Not Detected (NOT DETECT); Enteropathogenic E. coli-EPEC Not Detected (NOT DETECT); Enterotoxigenic E. coli-ETEC Not Detected (NOT DETECT); Giardia Lamblia Not Detected (NOT DETECT); Norovirus GI/GII Not Detected (NOT DETECT); Plesiomonas Shigelloides Not Detected (NOT DETECT); Rotavirus A Not Detected (NOT DETECT); Salmonella Sp Not Detected (NOT DETECT); Sapovirus Not Detected (NOT DETECT); Shiga Toxin-prod E. coli-STEC Not Detected (NOT DETECT); Shigella/Enteroin E. coli-EIEC Not Detected (NOT DETECT); Vibrio Cholerae Not Detected (NOT DETECT); Vibrio Sp Not Detected (NOT DETECT); Yersinia Enterocolitica Not Detected (NOT DETECT)
== END | disposition home or self-care (01) ==
LOC: LAB 09:05 → LAB SHORT 09:05 → LAB FUT 03-18 14:25
PROVIDERS: Internal Medicine
DX: R19.7 Diarrhea, unspecified (principal)
CPT/HCPCS: 87507

== ENCOUNTER → 2024-05-01 | Outpatient (CLI) | payer MEDICARE, OTHER ==
[2024-05-01 11:00] LABS: Source, Urine Voided
[2024-05-01 13:16] LABS: Appearance, Urine Hazy (Clear); Bilirubin, Urine Neg (Neg); Blood, Urine 5+ (Neg); Color, Urine Yellow (P-Yellow); Glucose Qualitative, Urine Neg (Neg); Ketones, Urine Neg (Neg); Leukocyte Esterase, Urine 3+ (Neg); Nitrite, Urine Neg (Neg); Protein, Urine 3+ (Neg); Specific Gravity, Urine 1.015 (1.003-1.022); Urobilinogen, Urine NORM (Normal)
[2024-05-01 14:03] LABS: Bacteria Mod /hpf; Red Blood Cells, Urine 25-50 /hpf (0-2); Squamous Epithelial Cells Rare /hpf (Few); Transitional Epithelial Cells Rare /hpf (0-Rare)
== END | disposition home or self-care (01) ==
LOC: LAB SHORT 10:58 → LAB 10:58 → EDSTATUS 05-01 10:00 → LAB FUT 05-01 10:00
PROVIDERS: Physician Assistant
DX: Z46.6 Encounter for fitting and adjustment of urinary device (principal); N39.0 Urinary tract infection, site not specified; G35 Multiple sclerosis; Z87.440 Personal history of urinary (tract) infections
CPT/HCPCS: 81001; 87077; 87086; 87186

== ENCOUNTER → 2024-05-28 | Outpatient (CLI) | payer MEDICARE, OTHER ==
[2024-05-29 13:29] LABS: Adenovirus F 40/41 Not Detected (NOT DETECT); Astrovirus Not Detected (NOT DETECT); Campylobacter Sp Not Detected (NOT DETECT); Cryptosporidium Not Detected (NOT DETECT); Cyclospora Cayetanensis Not Detected (NOT DETECT); E. Coli O157 Not Detected (NOT DETECT); Entamoeba Histolytica Not Detected (NOT DETECT); Enteroaggregative E. coli-EAEC Not Detected (NOT DETECT); Enteropathogenic E. coli-EPEC Not Detected (NOT DETECT); Enterotoxigenic E. coli-ETEC Not Detected (NOT DETECT); Giardia Lamblia Not Detected (NOT DETECT); Norovirus GI/GII Not Detected (NOT DETECT); Plesiomonas Shigelloides Not Detected (NOT DETECT); Rotavirus A Not Detected (NOT DETECT); Salmonella Sp Not Detected (NOT DETECT); Sapovirus Not Detected (NOT DETECT); Shiga Toxin-prod E. coli-STEC Not Detected (NOT DETECT); Shigella/Enteroin E. coli-EIEC Not Detected (NOT DETECT); Vibrio Cholerae Not Detected (NOT DETECT); Vibrio Sp Not Detected (NOT DETECT); Yersinia Enterocolitica Not Detected (NOT DETECT)
== END ==
LOC: LAB SHORT 09:13 → LAB 09:13 → EDSTATUS 05-23 10:50 → LAB FUT 05-23 10:50
PROVIDERS: Internal Medicine
DX: R19.7 Diarrhea, unspecified (principal)
CPT/HCPCS: 87507

== ENCOUNTER → 2024-06-23 | Outpatient (CLI) | payer MEDICARE, OTHER ==
[2024-06-23 14:39] LABS: Appearance, Urine Cloudy (Clear); Bilirubin, Urine Neg (Neg); Blood, Urine 5+ (Neg); Color, Urine Yellow (P-Yellow); Glucose Qualitative, Urine Neg (Neg); Ketones, Urine Neg (Neg); Leukocyte Esterase, Urine 3+ (Neg); Nitrite, Urine Neg (Neg); Protein, Urine 3+ (Neg); Specific Gravity, Urine 1.015 (1.003-1.022); Urobilinogen, Urine NORM (Normal)
[2024-06-23 15:24] LABS: Bacteria Many /hpf; Red Blood Cells, Urine TNTC /hpf (0-2); Renal Epithelial Few /hpf (0-Rare); Squamous Epithelial Cells Few /hpf (Few); White Blood Cells, Urine TNTC /hpf (0-5)
== END | disposition home or self-care (01) ==
LOC: LAB 09:53 → LAB SHORT 09:53 → EDSTATUS 11:08
PROVIDERS: Urology
DX: Z46.6 Encounter for fitting and adjustment of urinary device (principal); G35 Multiple sclerosis; E11.9 Type 2 diabetes mellitus without complications; Z87.440 Personal history of urinary (tract) infections
CPT/HCPCS: 81001; 87086

== ENCOUNTER → 2024-07-02 | Outpatient (CLI) | payer MEDICARE, OTHER ==
[2024-07-02 09:45] LABS: Source, Urine Clean Catch
[2024-07-02 13:32] LABS: Appearance, Urine Turbid (Clear); Bilirubin, Urine Neg (Neg); Blood, Urine 5+ (Neg); Glucose Qualitative, Urine Neg (Neg); Ketones, Urine Neg (Neg); Leukocyte Esterase, Urine 3+ (Neg); Nitrite, Urine Neg (Neg); Protein, Urine 2+ (Neg); Urobilinogen, Urine NORM (Normal)
[2024-07-02 13:57] LABS: Color, Urine Pale Yellow (P-Yellow)
[2024-07-02 13:58] LABS: Amorphous Light (0-Heavy); Bacteria Many /hpf; Squamous Epithelial Cells Few /hpf (Few)
== END | disposition home or self-care (01) ==
LOC: LAB SHORT 09:44 → LAB 09:44
PROVIDERS: Urology
DX: Z46.6 Encounter for fitting and adjustment of urinary device (principal); E11.9 Type 2 diabetes mellitus without complications; G35 Multiple sclerosis; Z87.440 Personal history of urinary (tract) infections
CPT/HCPCS: 81001; 87086

== ENCOUNTER → 2024-07-07 | Outpatient (CLI) | payer MEDICARE, OTHER ==
[2024-07-07 11:49] LABS: Source, Urine Straight Cath
[2024-07-07 13:03] LABS: Appearance, Urine Hazy (Clear); Bilirubin, Urine Neg (Neg); Blood, Urine 4+ (Neg); Color, Urine Yellow (P-Yellow); Glucose Qualitative, Urine Neg (Neg); Ketones, Urine Neg (Neg); Leukocyte Esterase, Urine 2+ (Neg); Nitrite, Urine Neg (Neg); Protein, Urine 2+ (Neg); Urobilinogen, Urine NORM (Normal); pH, Urine 6.5 (5.0-8.0)
[2024-07-07 13:14] LABS: White Blood Cells, Urine 50-100 /hpf (0-5)
[2024-07-07 13:15] LABS: Amorphous Light (0-Heavy); Bacteria Many /hpf; Squamous Epithelial Cells Few /hpf (Few)
== END | disposition home or self-care (01) ==
LOC: LAB SHORT 11:11 → LAB 11:11
PROVIDERS: Urology
DX: Z46.6 Encounter for fitting and adjustment of urinary device (principal); G35 Multiple sclerosis; E11.9 Type 2 diabetes mellitus without complications; Z87.440 Personal history of urinary (tract) infections; Z79.4 Long term (current) use of insulin
CPT/HCPCS: 81001; 87077; 87086; 87147; 87186

== ENCOUNTER 2024-08-02 22:10 | Emergency (ER) | payer MEDICARE, OTHER ==
[~2024-08-02] VITALS: Ht 185.4 cm; Wt 114.3 kg
[~2024-08-02 22:10] MED LIST changes: -Betimol5 ML BOTHEYES; -EUTHYROX125 MCG PO; +EUTHYROX200 MCG PO; +TIMO.25OPS BOTHEYES
[2024-08-02] MEDS ORDERED: BENZ100A PO (22:57)
[2024-08-02 23:05] LABS: BASOPHILS ABSOLUTE AUTO 0.04 K/mm3 (0.00-0.23); BASOPHILS PERCENT AUTO 1 % (0-2); EOSINOPHILS ABSOLUTE AUTO 0.41 K/mm3 (0.00-0.68); EOSINOPHILS PERCENT AUTO 5 % (0-6); Hematocrit 33.1 % (37.0-53.0); Hemoglobin 10.8 g/dL (13.5-17.5); IMMATURE GRAN ABSOLUTE AUTO 0.04 K/mm3 (0.00-0.10); IMMATURE GRAN PERCENT AUTO 1 % (0-1); LYMPHOCYTES ABSOLUTE AUTO 2.33 K/mm3 (0.84-5.20); LYMPHOCYTES PERCENT AUTO 27 % (21-46); MONOCYTES ABSOLUTE AUTO 0.98 K/mm3 (0.16-1.47); MONOCYTES PERCENT AUTO 12 % (4-13); Mean Corpuscular HGB Conc 32.6 g/dL (31.5-36.5); Mean Corpuscular Volume 95 fL (80-100); Mean Platelet Volume 9.3 fL (9.1-12.4); NEUTROPHILS ABSOLUTE AUTO 4.74 K/mm3 (1.96-9.15); NEUTROPHILS PERCENT AUTO 55 % (41-73); Platelet Count 309 K/mm3 (150-400); RDW Standard Deviation 49.1 fL (35.1-46.3); Red Blood Cell Count 3.48 M/mm3 (4.30-5.90); White Blood Cell Count 8.54 K/mm3 (4.00-11.30)
[2024-08-02 23:15] LABS: Albumin, Blood 2.6 g/dL (3.4-5.0); Albumin/Globulin Ratio 0.5 (0.8-1.8); Bilirubin, Total 0.2 mg/dL (0.1-1.0); Bun/Creatinine Ratio 38.7 (12.0-20.0); Creatinine, Blood 0.67 mg/dL (0.60-1.20); Globulin, Blood 4.9 g/dL (2.2-4.0); Potassium, Blood 5.2 mmol/L (3.5-5.5); Total Protein, Blood 7.5 g/dL (6.4-8.2)
[2024-08-02 23:56] LABS: Influenza A, PCR NEGATIVE (NEGATIVE); Influenza B, PCR NEGATIVE (NEGATIVE); Resp Syncytial Virus, PCR NEGATIVE (NEGATIVE)
[2024-08-03 00:06] LABS: SARS-Cov-2 (COVID-19) PCR, MMC POSITIVE (NEGATIVE)
[2024-08-03] MEDS ORDERED: ACET500 PO (00:20)
[2024-08-03] MEDS ORDERED: LevoFLOXacin 750 MG Tab PO ONE (00:20)
[2024-08-03] MEDS ORDERED: LEVFLO500 PO (00:20)
[2024-08-03 00:30] VITALS: BP 131/70
[2024-08-04] MEDS ORDERED: ACET500 PO (10:26)
[2024-08-04] MEDS ORDERED: LEVFLO500 PO (10:26)
[2024-08-05] MEDS ORDERED: DIPATR (11:40)
== END 2024-08-03 01:24 | disposition home or self-care (01) ==
LOC: ER 22:10
PROVIDERS: Emergency Medicine
DX: U07.1 COVID-19 (principal); J12.82 Pneumonia due to coronavirus disease 2019; I10 Essential (primary) hypertension; E78.5 Hyperlipidemia, unspecified; E03.9 Hypothyroidism, unspecified; E11.9 Type 2 diabetes mellitus without complications; J45.909 Unspecified asthma, uncomplicated; Z79.4 Long term (current) use of insulin; Z79.899 Other long term (current) drug therapy; Z91.018 Allergy to other foods; Z88.0 Allergy status to penicillin; Z88.1 Allergy status to other antibiotic agents; Z88.8 Allergy status to other drugs, medicaments and biological substances
CPT/HCPCS: 0241U; 71045; 80053; 85025; 93005; 93010; 99285-25; A9270

== ENCOUNTER 2024-08-04 15:00 | Inpatient (IN) | payer MEDICARE, OTHER ==
[~2024-08-04] VITALS: Ht 185.4 cm; Wt 114.2 kg
[~2024-08-04 15:00] MED LIST changes: +BENZ100A PO
[2024-08-04 16:32] LABS: BASOPHILS ABSOLUTE AUTO 0.05 K/mm3 (0.00-0.23); BASOPHILS PERCENT AUTO 0 % (0-2); EOSINOPHILS ABSOLUTE AUTO 0.41 K/mm3 (0.00-0.68); EOSINOPHILS PERCENT AUTO 3 % (0-6); Hematocrit 34.2 % (37.0-53.0); Hemoglobin 11.6 g/dL (13.5-17.5); IMMATURE GRAN PERCENT AUTO 1 % (0-1); LYMPHOCYTES ABSOLUTE AUTO 2.04 K/mm3 (0.84-5.20); LYMPHOCYTES PERCENT AUTO 16 % (21-46); MONOCYTES ABSOLUTE AUTO 1.13 K/mm3 (0.16-1.47); MONOCYTES PERCENT AUTO 9 % (4-13); Mean Corpuscular HGB 31.2 pg (26.0-34.0); Mean Corpuscular HGB Conc 33.9 g/dL (31.5-36.5); Mean Corpuscular Volume 92 fL (80-100); Mean Platelet Volume 9.1 fL (9.1-12.4); NEUTROPHILS ABSOLUTE AUTO 8.86 K/mm3 (1.96-9.15); NEUTROPHILS PERCENT AUTO 70 % (41-73); Platelet Count 361 K/mm3 (150-400); RDW Coefficient Variation 14.1 % (11.7-14.2); RDW Standard Deviation 47.9 fL (35.1-46.3); Red Blood Cell Count 3.72 M/mm3 (4.30-5.90); White Blood Cell Count 12.59 K/mm3 (4.00-11.30)
[2024-08-04 16:40] LABS: Albumin, Blood 2.7 g/dL (3.4-5.0); Albumin/Globulin Ratio 0.5 (0.8-1.8); Bilirubin, Total 0.2 mg/dL (0.1-1.0); Bun/Creatinine Ratio 39.8 (12.0-20.0); Calcium, Blood 9.2 mg/dL (8.5-10.1); Creatinine, Blood 0.65 mg/dL (0.60-1.20); Globulin, Blood 5.4 g/dL (2.2-4.0); Potassium, Blood 4.9 mmol/L (3.5-5.5); Total Protein, Blood 8.1 g/dL (6.4-8.2)
[2024-08-04] MEDS ORDERED: NS 1,000 ML IV SCH ×2 (17:30→20:05)
[2024-08-04 19:24] LABS: Anti-Xa UFH, PHA Monitoring <0.10 IU/mL; International Normalized Ratio 1.02; Prothrombin Time Results 10.9 Sec (9.7-11.5)
[2024-08-04] MEDS ORDERED: FLU VACC TS2024-25(6MOS UP)/PF 45 MCG/0.5 ML SYRINGE IM SCH (20:05)
[2024-08-04] MEDS ORDERED: Ondansetron HCl 2 MG / ML 2ML Vial IV PRN (20:05)
[2024-08-04] MEDS ORDERED: Ipratropium/Albuterol SulF 2.5-0.5MG/3 ML Amp INH PRN (20:10)
[2024-08-04] MEDS ORDERED: Remdesivir (EUA) 200 MG in NS 250 ML IV ONE (20:25)
[2024-08-04 20:41] LABS: Source, Urine Foley catheter
[2024-08-04 20:49] LABS: Bilirubin, Urine Neg (Neg); Blood, Urine 5+ (Neg); Glucose Qualitative, Urine Neg (Neg); Ketones, Urine Neg (Neg); Leukocyte Esterase, Urine 3+ (Neg); Nitrite, Urine Neg (Neg); Protein, Urine 3+ (Neg); Specific Gravity, Urine 1.015 (1.003-1.022); Urobilinogen, Urine NORM (Normal)
[2024-08-04 20:51] LABS: Appearance, Urine Hazy (Clear); Color, Urine Pale Yellow (P-Yellow)
[2024-08-04] MEDS ORDERED: Dexamethasone Sodium Phosphate 4 MG/ML 1ML Vial IV SCH (21:00)
[2024-08-04 21:02] LABS: Bacteria Mod /hpf; Red Blood Cells, Urine 0-2 /hpf (0-2); Squamous Epithelial Cells Few /hpf (Few); White Blood Cells, Urine TNTC /hpf (0-5)
[2024-08-04] MEDS ORDERED: Heparin Sodium,Porcine/0.5 NS 500 ML IV SCH (21:20)
[2024-08-04] MEDS ORDERED: Heparin Sodium 5000 Units/ML 1ML MDV IV ONE (21:20)
[2024-08-04 23:45] VITALS: BP 145/74
[2024-08-05 04:03] VITALS: BP 140/73
[2024-08-05 05:39] LABS: BASOPHILS ABSOLUTE AUTO 0.04 K/mm3 (0.00-0.23); BASOPHILS PERCENT AUTO 0 % (0-2); EOSINOPHILS ABSOLUTE AUTO 0.02 K/mm3 (0.00-0.68); EOSINOPHILS PERCENT AUTO 0 % (0-6); Hematocrit 33.3 % (37.0-53.0); Hemoglobin 11.2 g/dL (13.5-17.5); IMMATURE GRAN ABSOLUTE AUTO 0.12 K/mm3 (0.00-0.10); IMMATURE GRAN PERCENT AUTO 1 % (0-1); LYMPHOCYTES PERCENT AUTO 13 % (21-46); MONOCYTES ABSOLUTE AUTO 0.26 K/mm3 (0.16-1.47); MONOCYTES PERCENT AUTO 2 % (4-13); Mean Corpuscular HGB 31.2 pg (26.0-34.0); Mean Corpuscular HGB Conc 33.6 g/dL (31.5-36.5); Mean Corpuscular Volume 93 fL (80-100); Mean Platelet Volume 8.9 fL (9.1-12.4); NEUTROPHILS ABSOLUTE AUTO 10.07 K/mm3 (1.96-9.15); NEUTROPHILS PERCENT AUTO 84 % (41-73); Platelet Count 339 K/mm3 (150-400); RDW Coefficient Variation 13.9 % (11.7-14.2); RDW Standard Deviation 47.5 fL (35.1-46.3); Red Blood Cell Count 3.59 M/mm3 (4.30-5.90); White Blood Cell Count 12.01 K/mm3 (4.00-11.30)
--- NOTE | 2024-08-05 05:56 | NUR ---
DR BALDWIN NOTIFIED OF PRESSURE INJURIES TO BUTTOCKS ON ADMIT. SEE PHOTO IN PAPER CHART
[2024-08-05] MEDS ORDERED: Dose Adjust by Pharmacy XX STA ×2 (06:37→12:23)
[2024-08-05 06:41] LABS: Albumin, Blood 2.8 g/dL (3.4-5.0); Albumin/Globulin Ratio 0.6 (0.8-1.8); Bilirubin, Total 0.4 mg/dL (0.1-1.0); Calcium, Blood 8.8 mg/dL (8.5-10.1); Creatinine, Blood 0.58 mg/dL (0.60-1.20); Globulin, Blood 4.9 g/dL (2.2-4.0); Total Protein, Blood 7.7 g/dL (6.4-8.2)
[2024-08-05 08:14] VITALS: BP 140/73
[2024-08-05] MEDS ORDERED: Loperamide HCl 2 MG Cap PO PRN (08:45)
[2024-08-05] MEDS ORDERED: Omeprazole 20 MG CapCR PO SCH (09:00)
[2024-08-05] MEDS ORDERED: Citalopram Hydrobromide 20 MG Tab PO SCH (09:00)
[2024-08-05] MEDS ORDERED: Aspirin 81 MG TabEC PO SCH (09:00)
[2024-08-05] MEDS ORDERED: Baclofen 10 MG Tab PO SCH (09:00)
[2024-08-05] MEDS ORDERED: Insulin Human Lispro 100 Units/ML 3ML Syringe SC SCH (09:00)
[2024-08-05] MEDS ORDERED: Vitamin B Complex 1 EA Softgel PO SCH (09:00)
[2024-08-05] MEDS ORDERED: Losartan Potassium 50 MG Tab PO SCH (09:00)
[2024-08-05] MEDS ORDERED: Methylphenidate HCl 18 MG TabCR PO SCH (09:55)
[2024-08-05] MEDS ORDERED: Timolol 0.25% Opth Soln 5 ml BOTHEYES SCH (09:57)
[2024-08-05] MEDS ORDERED: Dicyclomine HCl 20 MG Tab PO SCH (10:30)
[2024-08-05] MEDS ORDERED: DIPATR PO (11:40)
[2024-08-05] MEDS ORDERED: METO25ER PO (11:44)
[2024-08-05] MEDS ORDERED: SPIR25 PO (11:46)
[2024-08-05] MEDS ORDERED: FURO20 PO (11:48)
[2024-08-05] MEDS ORDERED: Methylphenidate HCL 10 MG TAB PO SCH (12:00)
[2024-08-05] MEDS ORDERED: CYTOMEL PO (12:03)
[2024-08-05] MEDS ORDERED: Heparin Sodium 5000 Units/ML 1ML MDV IV ONE (12:25)
[2024-08-05] MEDS ORDERED: Arginine/Glutamine/Calcium Hmb 1 Packet PO SCH (13:00)
[2024-08-05] MEDS ORDERED: Diphenoxylat/Atrop 2.5 / 0.025MG 1 Tab PO PRN (13:35)
[2024-08-05] MEDS ORDERED: Acetaminophen 500 MG Tab PO PRN (13:35)
[2024-08-05] MEDS ORDERED: EZETIMIBE-SIMV1 EAC4 PO (14:50)
[2024-08-05] MEDS ORDERED: Zinc Oxide Ointment 30 GM TOP PRN (15:05)
[2024-08-05 15:52] VITALS: BP 125/58
--- NOTE | 2024-08-05 16:39 | NUR ---
SHIFT SUMMARY PT AOX4, ON BEDREST. LIMITED USE OF LE AND UE WITH MINIMAL USE OF R ARM. PT CAN USE THE CALL LIGHT WITH HIS RIGHT HAND. HEPARIN DRIP STILL RUNNING, DOSE CHANGED PER THE EMAR. BED BATH DONE THIS SHIFT. DRESSING TO BUTTOCK CHANGED AND ORDERS OBTAINED IN EMAR. NO ACUTE COMPLAINTS BY THE PT. MEDICATION RECONCILATION COMPLETED IN THE CHART, COPY OF MEDICATION LIST IN PHYSICAL CHART. AT THE BS THIS SHIFT AND UPDATED. PT REPOSITIONED THROUGHOUT THE SHIFT. NO EVENTS PER TELE. CALL LIGHT WITHIN REACH, BED LOCKED AND IN THE LOWEST POSITION. WILL REPORT TO ONCOMING NURSE.
--- NOTE | 2024-08-05 16:59 | NUR ---
NOTE: THIS NURSE NOTIFIED PROVIDER, DR. LAZO, OF CHANGES TO MEDICATION RECONCILIATION.
[2024-08-05] MEDS ORDERED: Latanoprost 0.005% Opth Soln 2.5 ML BOTHEYES SCH (21:00)
[2024-08-05] MEDS ORDERED: Remdesivir (EUA) 100 MG in NS 250 ML IV SCH (21:00)
[2024-08-05 21:05] VITALS: BP 146/75
[2024-08-05] MEDS ORDERED: LEVSOD25 PO (23:14)
[2024-08-05] MEDS ORDERED: METPHE10 PO (23:17)
[2024-08-05] MEDS ORDERED: BASAGLAR K100 UNIT/3 SC (23:21)
[2024-08-05] MEDS ORDERED: [UNRECOGNIZED DRUG - CODE] PO (23:29)
[2024-08-05] MEDS ORDERED: ACET500 PO (23:31)
[2024-08-06 01:19] LABS: BASOPHILS ABSOLUTE AUTO 0.03 K/mm3 (0.00-0.23); BASOPHILS PERCENT AUTO 0 % (0-2); EOSINOPHILS ABSOLUTE AUTO 0.04 K/mm3 (0.00-0.68); EOSINOPHILS PERCENT AUTO 0 % (0-6); Hematocrit 30.7 % (37.0-53.0); Hemoglobin 10.1 g/dL (13.5-17.5); IMMATURE GRAN ABSOLUTE AUTO 0.14 K/mm3 (0.00-0.10); IMMATURE GRAN PERCENT AUTO 1 % (0-1); LYMPHOCYTES ABSOLUTE AUTO 2.68 K/mm3 (0.84-5.20); LYMPHOCYTES PERCENT AUTO 20 % (21-46); MONOCYTES ABSOLUTE AUTO 1.55 K/mm3 (0.16-1.47); MONOCYTES PERCENT AUTO 12 % (4-13); Mean Corpuscular HGB 30.6 pg (26.0-34.0); Mean Corpuscular HGB Conc 32.9 g/dL (31.5-36.5); Mean Corpuscular Volume 93 fL (80-100); Mean Platelet Volume 8.8 fL (9.1-12.4); NEUTROPHILS ABSOLUTE AUTO 8.96 K/mm3 (1.96-9.15); NEUTROPHILS PERCENT AUTO 67 % (41-73); Platelet Count 352 K/mm3 (150-400); RDW Coefficient Variation 13.9 % (11.7-14.2); RDW Standard Deviation 47.7 fL (35.1-46.3)
[2024-08-06 01:40] LABS: Bun/Creatinine Ratio 33.7 (12.0-20.0); Calcium, Blood 8.6 mg/dL (8.5-10.1); Creatinine, Blood 0.68 mg/dL (0.60-1.20); Potassium, Blood 4.2 mmol/L (3.5-5.5)
[2024-08-06] MEDS ORDERED: Dose Adjust by Pharmacy XX STA ×2 (02:45→18:45)
[2024-08-06 05:36] VITALS: BP 134/71
[2024-08-06] MEDS ORDERED: Levothyroxine Sodium 0.125 MG Tab PO SCH (06:00)
--- NOTE | 2024-08-06 07:03 | NUR ---
CATERING BARISTA SUMMARY NO ACUTE EVENTS OVERNIGHT. NEW IV PLACED IN THE RFA. HEPARIN GTT CHANGED PER PHARMACY TO 22 U/KG/HR. PT REPOSITIONED EVERY 2 HOURS. PT DENIES SHORTNESS OF BREATH AND IS SATING WELL ON ROOM AIR.
[2024-08-06 07:48] VITALS: BP 125/64
[2024-08-06] MEDS ORDERED: Methylphenidate HCL 10 MG TAB PO SCH (09:00)
[2024-08-06] MEDS ORDERED: Metoprolol Succinate 25 MG TABCR PO SCH (09:00)
[2024-08-06] MEDS ORDERED: Furosemide 20 MG Tab PO SCH (09:00)
[2024-08-06] MEDS ORDERED: Spironolactone 25 MG Tab PO SCH (09:00)
[2024-08-06] MEDS ORDERED: Methylphenidate HCl 18 MG TabCR PO SCH (09:00)
[2024-08-06] MEDS ORDERED: METPHE20CR PO (15:26)
--- NOTE | 2024-08-06 17:28 | NUR ---
SHIFT SUMMARY PT AOX4, ON BR. REPOSITIONED THROUGHOUT THE SHIFT. NO EVENTS PER TELE. FEED ASSIST WITH MEALS. GUNN PATENT AND DRAINING. DRESSING TO BUTTOCK CHANGED THIS SHIFT. MEDICATED FOR PAIN AT THE START OF THE SHIFT. HE HAS SLEPT OFF AND ON MOST OF THE DAY. FAMILY AT THE BS AND UPDATED. HEPARIN DRIP STILL RUNNING, DOSE MANAGED BY PHARMACY. PT CALLS AND MAKES HIS NEEDS KNOWN. NO ACUTE CHANGES THIS SHIFT. CALL LIGHT WITHIN REACH, BED LOCKED AND IN THE LOWEST POSITION. WILL REPORT TO ONCOMING NURSE.
[2024-08-06 20:15] VITALS: BP 119/62
[2024-08-06] MEDS ORDERED: Insulin Glargine-Yfgn 100 Unit/mL 3 ML SYR SC SCH (21:00)
[2024-08-07] MEDS ORDERED: Dose Adjust by Pharmacy XX STA ×3 (00:03→13:30)
--- NOTE | 2024-08-07 04:27 | NUR ---
SHIFT SUMMARY. PATIENT IS A&OX4. PATIENT CALLS APPROPRIATELY AND IS ABLE TO MAKE HIS NEEDS KNOWN. PATIENT C/O PAIN X1-MEDICATED PER EMAR WITH IMPROVEMENT TO PAIN. PATIENT IS PLEASANT AND COOPERATIVE WITH CARE. PATIENT IS BEDREST AT THIS TIME-REPOSISIONED THROUGH OUT SHIFT. TELE IS ON WITH LEADS INTACT-NO NOTED EVENTS. PATIENTS DRESSING TO BUTTOCKS IS C/D/I. PATIENT HAS CHRONIC GUNN THAT IS PATENT AND DRAINING TO GRAVITY. BED IS LOCKED IN THE LOWEST POSITION WITH CALL LIGHT IN REACH. CARE IS ONGOING.
[2024-08-07 04:51] VITALS: BP 104/57
[2024-08-07 05:31] LABS: BASOPHILS ABSOLUTE AUTO 0.02 K/mm3 (0.00-0.23); BASOPHILS PERCENT AUTO 0 % (0-2); EOSINOPHILS PERCENT AUTO 0 % (0-6); Hematocrit 31.1 % (37.0-53.0); Hemoglobin 10.5 g/dL (13.5-17.5); IMMATURE GRAN ABSOLUTE AUTO 0.25 K/mm3 (0.00-0.10); IMMATURE GRAN PERCENT AUTO 2 % (0-1); LYMPHOCYTES ABSOLUTE AUTO 2.22 K/mm3 (0.84-5.20); LYMPHOCYTES PERCENT AUTO 18 % (21-46); MONOCYTES ABSOLUTE AUTO 1.45 K/mm3 (0.16-1.47); MONOCYTES PERCENT AUTO 12 % (4-13); Mean Corpuscular HGB 31.3 pg (26.0-34.0); Mean Corpuscular HGB Conc 33.8 g/dL (31.5-36.5); Mean Corpuscular Volume 93 fL (80-100); Mean Platelet Volume 9.2 fL (9.1-12.4); NEUTROPHILS ABSOLUTE AUTO 8.12 K/mm3 (1.96-9.15); NEUTROPHILS PERCENT AUTO 67 % (41-73); Platelet Count 363 K/mm3 (150-400); RDW Coefficient Variation 13.8 % (11.7-14.2); RDW Standard Deviation 46.9 fL (35.1-46.3); Red Blood Cell Count 3.36 M/mm3 (4.30-5.90); White Blood Cell Count 12.06 K/mm3 (4.00-11.30)
[2024-08-07] MEDS ORDERED: Levothyroxine Sodium 0.075 MG Tab PO SCH (06:00)
[2024-08-07 09:06] VITALS: BP 109/62
[2024-08-07 16:14] VITALS: BP 118/59
[2024-08-07] MEDS ORDERED: Insulin Human Lispro 100 Units/ML 3ML Syringe SC SCH (16:30)
[2024-08-07] MEDS ORDERED: ALPRAZolam 0.5 MG Tab PO ONE (17:15)
--- NOTE | 2024-08-07 17:45 | NUR ---
SHIFT SUMMARY PT AOX4, LIFT PATIENT. REPOSITIONED THROUGHOUT THE SHIFT. NO EVENTS PER TELE. MEDICATED FOR PAIN PER THE EMAR. PT TO GET AN MRI THIS EVENING, REQUESTED XANAX PRIOR. XANAX ADMINISTERED PER THE EMAR. INSULIN SCALE CHANGED THIS SHIFT. BED BATH COMPLETED. CATH CARE COMPLETED. FAMILY UPDATED. NO ACUTE EVENTS. GUNN PATENT AND DRAINING. GOOD OUTPUT. HEPARIN DRIP RUNNING, MANAGED BY THE PHARMACY. CALL LIGHT WITHIN REACH, BED LOCKED AND IN THE LOWEST POSITION. WILL REPORT TO ONCOMING NURSE.
--- NOTE | 2024-08-07 18:21 | NUR ---
NOTE: PT TO MRI, INFORMED BY PRN OCCUPATIONAL THERAPIST THAT PT MUST BE REMOVED FROM HEPARIN DRIP. PHARMACY NOTIFIED. PHARMACIST STATED IT WAS OKAY AND TO JUST RESUME HEPARIN ONCE THE PT RETURNS.
[2024-08-07 20:28] VITALS: BP 120/60
[2024-08-07] MEDS ORDERED: Insulin Glargine-Yfgn 100 Unit/mL 3 ML SYR SC SCH (21:00)
[2024-08-08 04:13] VITALS: BP 115/64
--- NOTE | 2024-08-08 04:42 | NUR ---
SHIFT SUMMARY. PATIENT IS A&OX4. PATIENT IS PLEASANT AND COOPERATIVE WITH CARE. PATIENT IS BED BOUND AT BASELINE WITH A CHRONIC INDWELLING GUNN CATHETER. PATIENT TAKES HIS MEDS WHOLE WITH APPLESAUCE. PATIENT HAS LIFT SHEET ON BED. PATIENT HAS TELE THAT IS ON WITH LEADS IN PLACE-NO EVENTS NOTED THIS SHIFT. PATIENT HAD MRI COMPLETED ON 08/07/24 RESULTS ARE AVALIABLE. PATIENT REPOSITIONED T/O SHIFT. CARDIOLOGY IS FOLLOWING WITH DISCUSSION OF POSSIBLE ZHAO PENDING FURTHER TESTING-TENTATIVELY SCHEDULED FOR SUNDAY. BED LOCKED IN THE LOWEST POSITION WITH CALL LIGHT IN REACH. CARE IS ONGOING.
[2024-08-08 06:17] LABS: BASOPHILS ABSOLUTE AUTO 0.03 K/mm3 (0.00-0.23); BASOPHILS PERCENT AUTO 0 % (0-2); EOSINOPHILS ABSOLUTE AUTO 0.01 K/mm3 (0.00-0.68); EOSINOPHILS PERCENT AUTO 0 % (0-6); Hemoglobin 10.7 g/dL (13.5-17.5); IMMATURE GRAN ABSOLUTE AUTO 0.57 K/mm3 (0.00-0.10); IMMATURE GRAN PERCENT AUTO 4 % (0-1); LYMPHOCYTES ABSOLUTE AUTO 2.58 K/mm3 (0.84-5.20); LYMPHOCYTES PERCENT AUTO 19 % (21-46); MONOCYTES ABSOLUTE AUTO 1.77 K/mm3 (0.16-1.47); MONOCYTES PERCENT AUTO 13 % (4-13); Mean Corpuscular HGB Conc 33.4 g/dL (31.5-36.5); Mean Corpuscular Volume 93 fL (80-100); Mean Platelet Volume 9.3 fL (9.1-12.4); NEUTROPHILS PERCENT AUTO 64 % (41-73); Platelet Count 370 K/mm3 (150-400); RDW Coefficient Variation 13.9 % (11.7-14.2); RDW Standard Deviation 47.5 fL (35.1-46.3); Red Blood Cell Count 3.45 M/mm3 (4.30-5.90); White Blood Cell Count 13.86 K/mm3 (4.00-11.30)
[2024-08-08 06:47] LABS: Bun/Creatinine Ratio 43.1 (12.0-20.0); Creatinine, Blood 0.7 mg/dL (0.60-1.20); Potassium, Blood 4.6 mmol/L (3.5-5.5)
[2024-08-08 07:34] VITALS: BP 118/67
[2024-08-08] MEDS ORDERED: Meropenem 1,000 MG in NS 100 ML IV SCH (08:00)
[2024-08-08 16:06] VITALS: BP 126/65
--- NOTE | 2024-08-08 18:30 | NUR ---
SHIFT SUMMARY PATIENT ALERT AND INTERACTIVE. PATIENT HAS HX OF MS WITH LIMITED MOVEMENT OF EXTREMETIES. PATIENT DENIES ANY PAIN OR SOB. PATIENT NEEDING ASSISTANCE WITH MEALS BUT IS ABLE TO USE WATER CUP. UPDATED BY DR. CHAMBERS RELATED TO MRI. HEPARIN GTT CONTINUES TO INFUSE WITH NO CHANGES. PATIENT NOTED TO HAVE A BLOOD BLISTER ON R WRIST. DR CHAMBERS NOTIFIED, AWARE. BLISTER POPPED AT END OF SHIFT. DRESSING APPLIED OVER AREA BECAUSE OF BLOODY DRAINAGE AND TO PROTECT SKIN LAYER.
[2024-08-08 19:47] VITALS: BP 132/62
[2024-08-08] MEDS ORDERED: Insulin Human Lispro 100 Units/ML 3ML Syringe SC SCH (21:08)
[2024-08-09 02:52] VITALS: BP 124/58
--- NOTE | 2024-08-09 04:48 | NUR ---
SHIFT SUMMARY - NO ACUTE CHANGES THROUGHOUT THIS SHIFT. PT CONTINUES ON RA, SATS WNL - SEE VS. HEPARIN CONTINUES INFUSING TO LEFT FA IV SITE WITHOUT COMPLICATIONS. PT MEDICATED X1 FOR PAIN - SEE EMAR. CALL LIGHT WITHIN REACH. BED IN LOW POSITION. FLUIDS AT BEDSIDE.
[2024-08-09 06:23] LABS: Hematocrit 33.6 % (37.0-53.0); Hemoglobin 11.2 g/dL (13.5-17.5); Mean Corpuscular HGB 31.1 pg (26.0-34.0); Mean Corpuscular HGB Conc 33.3 g/dL (31.5-36.5); Mean Corpuscular Volume 93 fL (80-100); Mean Platelet Volume 9.6 fL (9.1-12.4); NRBC ABSOLUTE 0.03 K/mm3 (0.00-0.02); NRBC Auto 0.2 /100 WBC (0.0-0.2); Platelet Count 380 K/mm3 (150-400); RDW Coefficient Variation 13.8 % (11.7-14.2); RDW Standard Deviation 46.9 fL (35.1-46.3); White Blood Cell Count 19.11 K/mm3 (4.00-11.30)
[2024-08-09 06:56] LABS: Albumin, Blood 2.9 g/dL (3.4-5.0); Anion Gap 13 mmol/L (3-11); Blood Urea Nitrogen 33 mg/dL (8-24); Bun/Creatinine Ratio 53.7 (12.0-20.0); CO2, Blood 22 mmol/L (21-32); Calcium, Blood 9.2 mg/dL (8.5-10.1); Chloride, Blood 99 mmol/L (98-108); Creatinine, Blood 0.62 mg/dL (0.60-1.20); Glomerular Filtration Rate 100 (60-); Glucose, Blood 289 mg/dL (70-99); Magnesium, Blood 1.8 mg/dL (1.6-2.4); Potassium, Blood 4.8 mmol/L (3.5-5.5); Sodium, Blood 129 mmol/L (136-145)
[2024-08-09] MEDS ORDERED: Dose Adjust by Pharmacy XX STA ×2 (07:14→14:07)
[2024-08-09 08:12] VITALS: BP 120/64
[2024-08-09] MEDS ORDERED: dexAMETHasone 4 MG TAB PO SCH (09:00)
[2024-08-09 15:48] VITALS: BP 114/59
[2024-08-09] MEDS ORDERED: Apixaban 5 MG Tab PO SCH (18:01)
--- NOTE | 2024-08-09 18:07 | NUR ---
SHIFT SUMMARY PATIENT IN BED THIS SHIFT. TOLERATING AND ASSISTING WITH FREQUENT TURNS. WOUND CARE TO BILAT BUTTOCK. LARGE BM THIS SHIFT. GUNN IN PLACE, DRAINING FREELY TO GRAVITY, YELLOW URINE. HEPARIN DRIP D/C, TRANSITIONED TO ELIQUIS PER ORDER. BLOOD BLISTER TO RIGHT WRIST LEAKING SMALL AMOUNT OF SANGUINOUS FLUID, PETROLEUM DRESSING AND GAUZE WITH COBAN PLACED TO STOP FLOW. BLOOD CX NEG X2 DAYS. A/O X4. IN TO VISIT THIS SHIFT. TAKES PILLS WHOLE WITH APPLESAUCE, EATING WELL, REQUIRES ASSISTANCE. CALL LIGHT IN REACH, FREQUENT CHECKS, ABLE TO MAKE NEEDS KNOWN. CARES ONGOING.
[2024-08-09 19:54] VITALS: BP 128/63
[2024-08-09] MEDS ORDERED: Insulin Glargine-Yfgn 100 Unit/mL 3 ML SYR SC SCH (21:00)
--- NOTE | 2024-08-09 22:03 | NUR ---
I SPOKE TO DORA GONSALEZ AND UPDATED ON CBG 388 TONIGHT - NO NEW CHANGES TO CURRENT ORDERS.
[2024-08-10 04:53] VITALS: BP 119/61
--- NOTE | 2024-08-10 05:54 | NUR ---
SHIFT SUMMARY - NO ACUTE CHANGES THROUGHOUT THIS SHIFT. PT TOLERATES PO PILLS WITH APPLESAUCE WITHOUT COMPLICATIONS. LS WITH SCATTERED EXPIRATORY WHEEZES. TELE RHYTHM NSR WITH 1 DE[address] AV BLOCK. PT MEDICATED X1 WITH TYLENOL FOR "NECK PAIN." PT IS BEDBOUND AT BASELINE. 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 PT HAS LIMITED MOVEMENT OF ALL EXTREMITIES. PT CONTINUES ON RA - SATS WNL. CALL LIGHT WITHIN REACH. BED IN LOW POSITION. FLUIDS AT BEDSIDE.
[2024-08-10 07:00] LABS: Hematocrit 34.5 % (37.0-53.0); Hemoglobin 11.7 g/dL (13.5-17.5); Mean Corpuscular HGB 31.5 pg (26.0-34.0); Mean Corpuscular HGB Conc 33.9 g/dL (31.5-36.5); Mean Corpuscular Volume 93 fL (80-100); NRBC ABSOLUTE 0.02 K/mm3 (0.00-0.02); NRBC Auto 0.1 /100 WBC (0.0-0.2); Platelet Count 351 K/mm3 (150-400); RDW Coefficient Variation 13.8 % (11.7-14.2); RDW Standard Deviation 46.6 fL (35.1-46.3); Red Blood Cell Count 3.72 M/mm3 (4.30-5.90); White Blood Cell Count 18.64 K/mm3 (4.00-11.30)
[2024-08-10 07:27] LABS: Anion Gap 11 mmol/L (3-11); Blood Urea Nitrogen 38 mg/dL (8-24); Bun/Creatinine Ratio 58.8 (12.0-20.0); CO2, Blood 27 mmol/L (21-32); Calcium, Blood 9.1 mg/dL (8.5-10.1); Chloride, Blood 97 mmol/L (98-108); Creatinine, Blood 0.65 mg/dL (0.60-1.20); Glomerular Filtration Rate 98 (60-); Glucose, Blood 332 mg/dL (70-99); Phosphorus, Blood 3.5 mg/dL (2.5-4.9); Potassium, Blood 4.8 mmol/L (3.5-5.5); Sodium, Blood 130 mmol/L (136-145)
[2024-08-10 07:51] VITALS: BP 118/63
[2024-08-10 15:38] VITALS: BP 115/61
[2024-08-10] MEDS ORDERED: Insulin Human Lispro 100 Units/ML 3ML Syringe SC ONE (17:25)
--- NOTE | 2024-08-10 18:13 | NUR ---
SHIFT SUMMARY PATIENT IN BED THIS SHIFT, ACCEPTING OF FREQUENT TURNS. SEVERAL LOOSE BM THIS SHIFT, STATES NORMAL IF HE DOESN'T HAVE HIS NORMAL BOWEL MEDS, PRN MEDS GIVEN WITH DESIRED RESULTS. GUNN IN PLACE DRAINING TO GRAVITY. CALLED DR CHAMBERS REGARDING HIGH GLUCOSE FOR DINNER TIME. ORDERS PLACED FOR 10 EXTRA OF HUMALOG AND INCREASE GLARGINE FROM 40 TO 50 UNITS. WOUND CARE PERFORMED FOR BILAT BUTTOCKS, LEFT MEPILEX OFF AREA APPEARS MILDLY MACERATED AROUND EDGES, WILL PASS ON TO NOC SHIFT TO MONITOR. A/O X4. CALL LIGHT IN REACH, ABLE TO MAKE NEEDS KNOWN, CARES ONGOING.
[2024-08-10 19:27] VITALS: BP 116/57
--- NOTE | 2024-08-10 20:18 | NUR ---
PROVIDER CONTACT TALKED TO [facility] ABOUT 431 CBG. PROVIDER SAID CURRENT ORDERS WERE ADEQUATE.
[2024-08-10] MEDS ORDERED: Insulin Glargine-Yfgn 100 Unit/mL 3 ML SYR SC SCH (21:00)
[2024-08-11 05:01] VITALS: BP 98/52
--- NOTE | 2024-08-11 06:06 | NUR ---
SHIFT SUMMARY PATIENT HAS BEEN ALERT AND ORIENTED. PATIENT HAS HAD NO ACUTE EVENTS THIS SHIFT. VITAL SIGNS REVIEWED. PATIENTS CBG HAS BEEN ELEVATED. DR IS AWARE WITH NO NEW ORDERED. GUNN DRAINING TO GRAVITY. PATIENT HAS HAD A BM THIS SHIFT. PATIENT HAS HAD NO COMPLAINTS OF PAIN, NAUSEA OR VOMITTING THIS SHIFT. BED IN LOCKED AND LOWEST POSITION. CALL LIGHT IN PLACE.
[2024-08-11 07:19] VITALS: BP 106/53
[2024-08-11 17:21] VITALS: BP 105/55
--- NOTE | 2024-08-11 17:23 | NUR ---
SUMMARY NO ACUTE CHANGES THIS SHIFT, PT IS LIFT ASSIST, INCONT BM TODAY. CBG TREATED PER MD SIRENA MADE CHANGES TO INSULIN AND D/C STERIODS. PER , SHE IS SEEKING PRIVATE FACILITY FOR D/C. PT IS ALERT AND ORIENTED X4, ABLE TO MAKE NEEDS KNOWN. REQUIRES ASSISTANCE WITH MEALS. DENIES PAIN. R/A, IV ANTIBIOTICS CONTINUED. Q 2HR TURNS
--- NOTE | 2024-08-11 17:54 | NUR ---
DR. CHAMBERS NOTIFIED OF CBG 380. NO ADDITIONAL INSULIN ORDERED.
[2024-08-11] MEDS ORDERED: Insulin Human Lispro 100 Units/ML 3ML Syringe SC ONE (20:50)
[2024-08-11 21:30] VITALS: BP 106/52
--- NOTE | 2024-08-11 22:30 | NUR ---
PROVIDER CONTACT PATIENTS CBG HAS BEEN ELEVATED. CALLED [facility], OBTAINED ADDITIONAL 5 UNITS HUMALOG INSULIN. RECHECKED CBG AND CALLED [facility] FOR CONTINUED ELEVATED CBG. DR MEZA. NO ADDITIONAL ORDERS.
[2024-08-12 04:46] VITALS: BP 102/58
--- NOTE | 2024-08-12 05:03 | NUR ---
SHIFT SUMMARY PATIENT IS ALERT AND ORIENTED X3. PATIENT HAS HAD NO ACUTE EVENTS THIS SHIFT. VITAL SIGNS REVIEWED. PATIENT HAS HAD HIGH CBG THIS SHIFT. DR AWARE AND ADDITIONAL ORDERS OBTAINED. Q2 TURNS DONE. IV ABX INFUSED. PATIENT HAS HAS NO COMPLAINTS OF PAIN, SOB, NAUSEA OR VOMITTING THIS SHIFT. BED IN LOCKED AND LOWEST POSITION.
[2024-08-12 07:59] VITALS: BP 106/60
[2024-08-12] MEDS ORDERED: NS 250 ML IV PRN (09:10)
[2024-08-12] MEDS ORDERED: Diphenoxylat/Atrop 2.5 / 0.025MG 1 Tab PO SCH (17:00)
[2024-08-12 17:16] VITALS: BP 105/57
--- NOTE | 2024-08-12 18:56 | NUR ---
SUMMARY NO ACUTE CHANGES THIS SHIFT, CBG APPEAR TO BE TRENDING IN RIGHT DIRECTION. NOC RN AWARE OF INCREASE IN GLARGINE AND LARGE GAP IN CBG RESULTS FROM LAST NIGHT TO THIS MORNING. PT IS Q2HR TURNS, FEEDING ASSISTANCE IS NEEDED, PT IS ALERT AND ORIENTED X4. IV ANTIBIOTICS CONTINUE FOR 2 MORE DAYS. BEDREST.
[2024-08-12 19:31] VITALS: BP 94/52
[2024-08-12 20:21] VITALS: BP 94/54
[2024-08-13 03:59] VITALS: BP 107/56
--- NOTE | 2024-08-13 04:43 | NUR ---
SHIFT SUMMARY: PT AOX4 BUT FULL LIFT ASSISTANCE. GENERALIZED WEAKNESS AND SOME PRESSURE WOUNDS NOTED ON HEELS AND ON SACRUM, MEPILEX IN PLACE. PT TOLERATING MEDICATION AND COOPERATIVE IN CARE. GUNN CLEAN AND URINE UNREMARKABLE. PT DENIES CHESTPAIN OR DISCOMFORT. NO ACUTE EVENTS OVERNIGHT. PT IN BED SLEEPING, BED IN LOWEST POSITION, CALL LIGHT IN REACH. CONTINUING CARE.
[2024-08-13 06:01] LABS: Hematocrit 37.3 % (37.0-53.0); Hemoglobin 12.6 g/dL (13.5-17.5); Mean Corpuscular HGB Conc 33.8 g/dL (31.5-36.5); Mean Corpuscular Volume 92 fL (80-100); Mean Platelet Volume 9.9 fL (9.1-12.4); Platelet Count 326 K/mm3 (150-400); RDW Coefficient Variation 14.8 % (11.7-14.2); RDW Standard Deviation 49.4 fL (35.1-46.3); Red Blood Cell Count 4.06 M/mm3 (4.30-5.90); White Blood Cell Count 24.03 K/mm3 (4.00-11.30)
[2024-08-13 06:36] LABS: Albumin, Blood 2.8 g/dL (3.4-5.0); Anion Gap 12 mmol/L (3-11); Blood Urea Nitrogen 63 mg/dL (8-24); Bun/Creatinine Ratio 84.8 (12.0-20.0); CO2, Blood 24 mmol/L (21-32); Calcium, Blood 8.9 mg/dL (8.5-10.1); Chloride, Blood 101 mmol/L (98-108); Creatinine, Blood 0.74 mg/dL (0.60-1.20); Glomerular Filtration Rate 94 (60-); Glucose, Blood 129 mg/dL (70-99); Magnesium, Blood 2.2 mg/dL (1.6-2.4); Phosphorus, Blood 4.6 mg/dL (2.5-4.9); Potassium, Blood 4.4 mmol/L (3.5-5.5); Sodium, Blood 133 mmol/L (136-145)
[2024-08-13 08:02] VITALS: BP 100/51
[2024-08-13] MEDS ORDERED: Diphenoxylat/Atrop 2.5 / 0.025MG 1 Tab PO SCH ×2 (09:00→13:00)
[2024-08-13 16:15] VITALS: BP 92/47
--- NOTE | 2024-08-13 16:27 | NUR ---
NO ACUTE CHANGES THIS SHIFT. IV ANTIBIOTICS CONTINUED. Q 2HR TURNS, BEDREST.
[2024-08-13 19:21] VITALS: BP 101/49
--- NOTE | 2024-08-14 04:06 | NUR ---
SHIFT SUMMARY. NO ACUTE CHANGES NOTED. PATIENT IS A&OX4. PATIENT CALLS APPROPRIATELY AND IS ABLE TO MAKE HIS NEEDS KNOWN. PATIENT IS PLEASANT AND COOPERATIVE WITH CARE. REPOSITION T/O NIGHT. PATIENT TAKES MEDS WHOLE IN APPLESAUCE. BED IS LOCKED IN THE LOWEST POSITION WITH CALL LIGHT IN REACH. CARE IS ONGOING.
[2024-08-14 05:19] VITALS: BP 114/55
[2024-08-14 06:06] LABS: BASOPHILS ABSOLUTE AUTO 0.05 K/mm3 (0.00-0.23); BASOPHILS PERCENT AUTO 0 % (0-2); EOSINOPHILS ABSOLUTE AUTO 0.25 K/mm3 (0.00-0.68); EOSINOPHILS PERCENT AUTO 1 % (0-6); Hematocrit 36.7 % (37.0-53.0); Hemoglobin 12.3 g/dL (13.5-17.5); IMMATURE GRAN ABSOLUTE AUTO 0.26 K/mm3 (0.00-0.10); IMMATURE GRAN PERCENT AUTO 1 % (0-1); LYMPHOCYTES ABSOLUTE AUTO 3.24 K/mm3 (0.84-5.20); LYMPHOCYTES PERCENT AUTO 16 % (21-46); MONOCYTES ABSOLUTE AUTO 1.86 K/mm3 (0.16-1.47); MONOCYTES PERCENT AUTO 9 % (4-13); Mean Corpuscular HGB 31.3 pg (26.0-34.0); Mean Corpuscular HGB Conc 33.5 g/dL (31.5-36.5); Mean Corpuscular Volume 93 fL (80-100); NEUTROPHILS ABSOLUTE AUTO 14.23 K/mm3 (1.96-9.15); NEUTROPHILS PERCENT AUTO 71 % (41-73); Platelet Count 262 K/mm3 (150-400); RDW Coefficient Variation 14.8 % (11.7-14.2); RDW Standard Deviation 50.8 fL (35.1-46.3); Red Blood Cell Count 3.93 M/mm3 (4.30-5.90); White Blood Cell Count 19.89 K/mm3 (4.00-11.30)
[2024-08-14 06:38] LABS: Albumin, Blood 2.7 g/dL (3.4-5.0); Albumin/Globulin Ratio 0.7 (0.8-1.8); Bilirubin, Total 0.5 mg/dL (0.1-1.0); Bun/Creatinine Ratio 81.7 (12.0-20.0); Creatinine, Blood 0.65 mg/dL (0.60-1.20); Potassium, Blood 4.6 mmol/L (3.5-5.5); Total Protein, Blood 6.7 g/dL (6.4-8.2)
[2024-08-14 15:06] VITALS: BP 85/46
--- NOTE | 2024-08-14 15:10 | NUR ---
PT BP LOW, DR LAZO CALLED AND FLUIDS ORDERED AT 500 ML/HR
[2024-08-14] MEDS ORDERED: NS 1,000 ML IV SCH (15:15)
--- NOTE | 2024-08-14 18:05 | NUR ---
SHIFT SUMMARY PT A&OX4 AND ANSWERS QUESTIONS APPROPRIATELY. HX OF MS, L SIDE WEAKER THAN R. PT RECEIVED SCHEDULED MEDICATIONS AND PRN 1 AT A TIME W/ APPLESAUCE. VSS, PT BP LOW AND 1L OF NS ORDERED @ 500ML/HR. ONCE FLUID WAS ADMINISTERED, BP INCREASED TO 112/53. NO ACUTE EVENTS AT THIS TIME. PT SPENT MOST OF SHIFT IN BED RESTING QUIETLY. PT HAS CHRONIC GUNN CATH. PT REPOSITIONED Q2HRS. FALL PRECAUTIONS IN PLACE AND CALL LIGHT IN REACH.
[2024-08-14 19:01] VITALS: BP 112/53
[2024-08-14 19:35] VITALS: BP 88/43
[2024-08-14 19:37] VITALS: BP 88/47
[2024-08-14] MEDS ORDERED: NS 500 ML IV ONE (19:45)
[2024-08-15 02:49] VITALS: BP 93/45
--- NOTE | 2024-08-15 04:42 | NUR ---
SHIFT SUMMARY. PATIENT IS A&OX4. PATIENT HYPOTENSIVE THIS SHIFT WITH A B/P OF 88/43-DR. ESTRELLA NOTIFIED-500ML BOLUS OF NS ADMINISTERED-B/P CAME UP SOME. PATIENT IS PLEASANT AND COOPERATIVE WITH CARE. PATIENT HAS A CHRONIC GUNN CATHETER THAT IS PATENT AND DRAINING TO GRAVITY. PATIENT IS NO LONGER ON TELEMETRY. PATIENT IS A FEEDER, TAKES MEDS WHOLE IN APPLESAUCE AND IS A Q2 TURN. PATIENTS NEEDS ADDRESSED, PATIENT DENIES ANY NEEDS AT THIS TIME. BED IS LOCKED IN THE LOWEST POSITION WITH CALL LIGHT IN REACH. CARE IS ONGOING.
[2024-08-15 05:44] LABS: BASOPHILS ABSOLUTE AUTO 0.03 K/mm3 (0.00-0.23); BASOPHILS PERCENT AUTO 0 % (0-2); EOSINOPHILS ABSOLUTE AUTO 0.21 K/mm3 (0.00-0.68); EOSINOPHILS PERCENT AUTO 2 % (0-6); Hematocrit 35.5 % (37.0-53.0); Hemoglobin 11.7 g/dL (13.5-17.5); IMMATURE GRAN ABSOLUTE AUTO 0.17 K/mm3 (0.00-0.10); IMMATURE GRAN PERCENT AUTO 1 % (0-1); LYMPHOCYTES ABSOLUTE AUTO 2.77 K/mm3 (0.84-5.20); LYMPHOCYTES PERCENT AUTO 19 % (21-46); MONOCYTES ABSOLUTE AUTO 1.64 K/mm3 (0.16-1.47); MONOCYTES PERCENT AUTO 11 % (4-13); Mean Corpuscular Volume 94 fL (80-100); NEUTROPHILS ABSOLUTE AUTO 9.52 K/mm3 (1.96-9.15); NEUTROPHILS PERCENT AUTO 66 % (41-73); RDW Coefficient Variation 14.9 % (11.7-14.2); RDW Standard Deviation 51.5 fL (35.1-46.3); Red Blood Cell Count 3.78 M/mm3 (4.30-5.90); White Blood Cell Count 14.34 K/mm3 (4.00-11.30)
[2024-08-15 06:10] LABS: Bun/Creatinine Ratio 82.8 (12.0-20.0); Calcium, Blood 8.3 mg/dL (8.5-10.1); Creatinine, Blood 0.58 mg/dL (0.60-1.20); Potassium, Blood 5.2 mmol/L (3.5-5.5)
[2024-08-15 07:15] VITALS: BP 93/50
[2024-08-15] MEDS ORDERED: Furosemide 20 MG Tab PO SCH (08:00)
[2024-08-15] MEDS ORDERED: Spironolactone 25 MG Tab PO SCH (09:00)
[2024-08-15] MEDS ORDERED: Losartan Potassium 50 MG Tab PO SCH (09:00)
[2024-08-15 09:05] VITALS: BP 105/50
[2024-08-15 15:50] VITALS: BP 103/56
--- NOTE | 2024-08-15 19:14 | NUR ---
SHIFT SUMMARY NO ACUTE EVENTS DURING SHIFT. BED BATH TODAY AND Q2 H TURNS PROVIDED TO PATIENT. BED IN LOW POSITION, CALL LIGHT IN REACH. PATIENT ABLE TO MAKE NEEDS KNOWN.
[2024-08-15 19:47] VITALS: BP 108/54
[2024-08-16 02:42] VITALS: BP 112/55
[2024-08-16 05:43] VITALS: BP 98/54
--- NOTE | 2024-08-16 05:47 | NUR ---
SHIFT SUMMARY PT A&OX4 AND ANSWERS QUESTIONS APPROPRIATELY. PT RECEIVED SCHEDULED MEDICATION WITH NO ADVERSE REACTIONS. PT VSS, BP LOW BUT ASYMPTOMATIC. NO COMPLAINTS OF CP/PRESSURE OR SOB. CHRONIC GUNN IN PLACE AND DRAINING PATENT, CATH CARE PROVIDED. PT TURNED Q2HRS, MEPILEX PLACED ON COCCYX AND HEEL MEPILEX REPLACED. NO ACUTE EVENTS AT THIS TIME. PT LEFT IN A POSITION OF SAFETY WITH FALL PRECAUTIONS IN PLACE AND CALL LIGHT IN REACH.
[2024-08-16 07:17] VITALS: BP 111/57
[2024-08-16 15:49] VITALS: BP 82/48
[2024-08-16] MEDS ORDERED: NS 500 ML IV ONE (15:55)
--- NOTE | 2024-08-16 16:40 | NUR ---
SHIFT SUMMARY PT AOX4, COOPERATIVE, ABLE TO MAKE NEEDS KNOWN. PT IS BEDREST DUE TO HISTORY OF MS. ARMS/HANDS ARE FUNCTIONAL, RIGHT MORE SO THAN LEFT. FEET ARE COLD, PT REPORTS THAT IS CHRONIC. URINE OUTPUT HAS BEEN SUFFICIENT. TAKE MEDS WHOLE WITH APPLESAUCE. REPLACED MEPILEX ON COCCYX AFTER CLEANING. GUNN PATENT AND DRAINING TO GRAVITY. APPROX 1600, PT HAD LOW BP, THIS RN INFORMED MD EMILEE PLACED ORDER FOR NS BOLUS, WILL TAKE VITAL SIGNS ONCE BOLUS IS COMPLETE. PT REPORTS FEELING "FINE". POSSIBLE DC 08/17/24. BED IN LOWEST POSITION, CALL LIGHT WITHIN REACH.
[2024-08-16 19:27] VITALS: BP 88/44
[2024-08-17 03:28] VITALS: BP 105/59
--- NOTE | 2024-08-17 03:51 | NUR ---
DOLLY OPERATOR SUMMARY: PT ADMITTED FOR ACUTE HYPOXIC RESPIRATORY FAILURE. FULL CODE. PT A&O X4, MAKES NEEDS KNOWN TO STAFF. TOTAL CARE. BEDREST D/T HX OF MS. TURN SCHEDULE Q2H. MEPILEX TO COCCYX AND HEELS. NO ADVERSE SIDE EFFECTS TO IV ABX. CHRONIC GUNN DRAINING YELLOW URINE TO GRAVITY. PER REPORT PT HAD EPISODES OF LOW BP, SEE NURSE NOTE. PT HAD LOW BP AT START OF THIS SHIFT, ASYMPTOMATIC. RECHECK BP AROUND 0330: 105/59; ASYMPTOMATIC. CALL LIGHT IN REACH. CARES CONTINUE ORDERED.
[2024-08-17 06:09] LABS: BASOPHILS ABSOLUTE AUTO 0.03 K/mm3 (0.00-0.23); BASOPHILS PERCENT AUTO 0 % (0-2); EOSINOPHILS ABSOLUTE AUTO 0.33 K/mm3 (0.00-0.68); EOSINOPHILS PERCENT AUTO 3 % (0-6); Hematocrit 35.2 % (37.0-53.0); Hemoglobin 11.6 g/dL (13.5-17.5); IMMATURE GRAN ABSOLUTE AUTO 0.07 K/mm3 (0.00-0.10); IMMATURE GRAN PERCENT AUTO 1 % (0-1); LYMPHOCYTES ABSOLUTE AUTO 2.42 K/mm3 (0.84-5.20); LYMPHOCYTES PERCENT AUTO 19 % (21-46); MONOCYTES ABSOLUTE AUTO 1.69 K/mm3 (0.16-1.47); MONOCYTES PERCENT AUTO 13 % (4-13); Mean Corpuscular HGB 31.4 pg (26.0-34.0); Mean Corpuscular Volume 95 fL (80-100); Mean Platelet Volume 9.9 fL (9.1-12.4); NEUTROPHILS ABSOLUTE AUTO 8.08 K/mm3 (1.96-9.15); NEUTROPHILS PERCENT AUTO 64 % (41-73); Platelet Count 197 K/mm3 (150-400); RDW Coefficient Variation 14.6 % (11.7-14.2); Red Blood Cell Count 3.69 M/mm3 (4.30-5.90); White Blood Cell Count 12.62 K/mm3 (4.00-11.30)
[2024-08-17 06:40] LABS: Bun/Creatinine Ratio 58.7 (12.0-20.0); Calcium, Blood 8.9 mg/dL (8.5-10.1); Creatinine, Blood 0.8 mg/dL (0.60-1.20); Potassium, Blood 4.6 mmol/L (3.5-5.5)
[2024-08-17 07:59] VITALS: BP 108/59
[2024-08-17] MEDS ORDERED: Losartan Potassium 50 MG Tab PO SCH (09:00)
[2024-08-17] MEDS ORDERED: Metoprolol Succinate 25 MG TABCR PO SCH (09:00)
[2024-08-17 15:53] VITALS: BP 106/57
--- NOTE | 2024-08-17 18:00 | NUR ---
SHIFT SUMMARY PT AOX4, COOPERATIVE, ABLE TO MAKE NEEDS KNOWN. PT WAS SUPPOSED TO DC TODAY BUT MD RECOMMENDED ONE MORE NIGHT DUE TO SOFT BP'S. MEDICATION WAS ADJUSTED AND VITALS WERE BETTER THIS AFTERNOON. STILL BEDREST, GUNN PATENT, DRAINING TO GRAVITY. COCCYX WOUND C/D/I. NO OTHER ACUTE EVENTS TOOK PLACE. BED IN LOWESET POSITION, CALL LIGHT WITHIN REACH.
[2024-08-17 19:44] VITALS: BP 102/50
[2024-08-18 03:45] VITALS: BP 101/56
--- NOTE | 2024-08-18 04:01 | NUR ---
BENZENE STILL UTILITY OPERATOR SUMMARY: PT A&O X4, MAKES NEEDS KNOWN TO STAFF. NO ACUTE CHANGES T/O SHIFT. MEDICATED X1 WITH PRN APAP FOR NECK PAIN PER EMAR ORDER; EFFECTIVE. GUNN PATENT AND DRAINING YELLOW URINE TO GRAVITY. PLAN IS TO D/C HOME TODAY. BED IN LOWEST POSITION. CALL LIGHT IN REACH.
--- NOTE | 2024-08-18 07:38 | NUR ---
ASSUMED CARE OF PATIENT. SLEEPING DURING SHIFT-CHANGE REPORT. NO ACUTE NEEDS.
[2024-08-18] MEDS ORDERED: Metoprolol Succinate 25 MG TABCR PO SCH (09:00)
[2024-08-18] MEDS ORDERED: Losartan Potassium 50 MG Tab PO SCH (09:00)
[2024-08-18 09:16] VITALS: BP 104/55
[2024-08-18] MEDS ORDERED: ELIQUIS5 M2 PO (11:16)
[2024-08-18] MEDS ORDERED: JUVEN PACKET1 EAC3 PO (11:17)
[2024-08-18] MEDS ORDERED: Bentyl20 MG PO (11:17)
[2024-08-18 15:04] VITALS: BP 109/61
--- NOTE | 2024-08-18 16:30 | NUR ---
DISCHARGE SUMMARY: A&Ox4. PLEASANT AND COOPERATIVE WITH CARE. CALLS APPROPRIATELY AND IS ABLE TO ADVOCATE NEEDS EFFECTIVELY. BEDREST; MOTORIZED WHEELCHAIR AT BASELINE. INCONTINENT OF BOWEL AND BLADDER SECONDARY TO Dx MS. CHRONIC GUNN PATENT AND DRAINING YELLOW URINE TO GRAVITY. STOOLS HAVE BEGUN FORMING UP AND DIARRHEA HAS RESOLVED. MEDS WHOLE WITH FLUIDS c APPLESAUCE CHASER . MEDICATIONS FAXED TO [email or web address]. INSTRUCTED TO FOLLOW-UP WITH DR. WOODSON IN ONE TO TWO WEEKS. LEFT FLOOR VIA MOTORIZED SCOOTER AT 1400 WITH ALL BELONGINGS AND DISCHARGE PACKET.
== END 2024-08-18 16:11 | disposition home or self-care (01) | DRG 871 ==
LOC: ER 15:00 → ERHOLD 20:02 → MEDS 20:02
PROVIDERS: Family Medicine; Internal Medicine; Student in an Organized Health Care Education/Training Program; ADMIT Internal Medicine
PROC: XW033E5 Introduction of Remdesivir Anti-infective into Peripheral Vein, Percutaneous Approach, New Technology Group 5 (ICD-10-PCS; 2024-08-04)
PROC: 3E03329 Introduction of Other Anti-infective into Peripheral Vein, Percutaneous Approach (ICD-10-PCS; principal; 2024-08-08)
DX: A41.9 Sepsis, unspecified organism (principal); I26.99 Other pulmonary embolism without acute cor pulmonale; U07.1 COVID-19; J96.01 Acute respiratory failure with hypoxia; J12.82 Pneumonia due to coronavirus disease 2019; T83.511A Infection and inflammatory reaction due to indwelling urethral catheter, initial encounter; E87.1 Hypo-osmolality and hyponatremia; Z16.12 Extended spectrum beta lactamase (ESBL) resistance; R65.20 Severe sepsis without septic shock; J45.909 Unspecified asthma, uncomplicated; I10 Essential (primary) hypertension; E78.5 Hyperlipidemia, unspecified; E03.9 Hypothyroidism, unspecified; F32.A Depression, unspecified; E11.39 Type 2 diabetes mellitus with other diabetic ophthalmic complication; H42 Glaucoma in diseases classified elsewhere; G35 Multiple sclerosis; E66.9 Obesity, unspecified; I35.1 Nonrheumatic aortic (valve) insufficiency; E77.8 Other disorders of glycoprotein metabolism; E88.09 Other disorders of plasma-protein metabolism, not elsewhere classified; K21.9 Gastro-esophageal reflux disease without esophagitis; R82.81 Pyuria; R53.1 Weakness; Z96.642 Presence of left artificial hip joint; Z79.891 Long term (current) use of opiate analgesic; Z79.4 Long term (current) use of insulin; Z79.890 Hormone replacement therapy; Z79.82 Long term (current) use of aspirin; Z79.2 Long term (current) use of antibiotics; Z91.018 Allergy to other foods; Z88.1 Allergy status to other antibiotic agents; Z74.01 Bed confinement status; Z88.8 Allergy status to other drugs, medicaments and biological substances; Z98.890 Other specified postprocedural states; Z79.899 Other long term (current) drug therapy; Z90.49 Acquired absence of other specified parts of digestive tract; Z68.33 Body mass index [BMI] 33.0-33.9, adult; Z86.73 Personal history of transient ischemic attack (TIA), and cerebral infarction without residual deficits
CPT/HCPCS: 0241U; 36415; 51702; 70551; 71045; 71260; 80048; 80053; 80069; 81001; 82947; 83735; 83880; 84484; 85025; 85027; 85379; 85520; 85610; 85730; 87040; 87077; 87086; 87186; 92610; 93005; 93010; 93306; 94760; 99285-25; A9270; J0248; J1100; J1644; J1815; J2185; J7030; J7040; J7050; Q9967

== ENCOUNTER → 2024-09-09 | Outpatient (CLI) | payer MEDICARE, OTHER ==
[~2024-09-09] MED LIST changes: +BASAGLAR K100 UNIT/3 SC; +Bentyl20 MG PO; +CYTOMEL PO; +ELIQUIS5 M2 PO; +JUVEN PACKET1 EAC3 PO; +MEROPENEM114 IV; +VISBIOME 112.51 EACH PO; +[UNRECOGNIZED DRUG - CODE] PO
[2024-09-09 12:18] LABS: Source, Urine Straight Cath
[2024-09-09 13:00] LABS: Appearance, Urine Hazy (Clear); Bilirubin, Urine Neg (Neg); Blood, Urine 2+ (Neg); Glucose Qualitative, Urine Neg (Neg); Ketones, Urine Neg (Neg); Leukocyte Esterase, Urine 2+ (Neg); Nitrite, Urine Neg (Neg); Protein, Urine Neg (Neg); Urobilinogen, Urine NORM (Normal)
[2024-09-09 13:15] LABS: Color, Urine Pale Yellow (P-Yellow)
[2024-09-09 13:17] LABS: White Blood Cells, Urine 50-100 /hpf (0-5)
[2024-09-09 13:18] LABS: Bacteria Many /hpf; Squamous Epithelial Cells Few /hpf (Few); Transitional Epithelial Cells Rare /hpf (0-Rare)
== END | disposition home or self-care (01) ==
LOC: LAB SHORT 12:14 → LAB 12:14
PROVIDERS: Internal Medicine
DX: N39.0 Urinary tract infection, site not specified (principal)
CPT/HCPCS: 81001

== ENCOUNTER 2024-09-10 09:40 | Inpatient (IN) | payer MEDICARE, OTHER ==
[~2024-09-10] VITALS: Ht 182.9 cm; Wt 121.8 kg
[2024-09-10] VITALS (8 sets, daily range): BP systolic 77–96; BP diastolic 44–50
[~2024-09-10 09:40] MED LIST changes: -MEROPENEM114 IV; -VISBIOME 112.51 EACH PO
[2024-09-10] MEDS ORDERED: CefTRIAXone Sodium 2,000 MG in NS 100 ML IV ONE (10:25)
[2024-09-10] MEDS ORDERED: Diltiazem HCl 5 MG / ML 5ML Vial IV ONE (10:30)
[2024-09-10 10:39] LABS: Hematocrit 34.7 % (37.0-53.0); Hemoglobin 11.7 g/dL (13.5-17.5); Mean Corpuscular HGB 31.5 pg (26.0-34.0); Mean Corpuscular HGB Conc 33.7 g/dL (31.5-36.5); Mean Corpuscular Volume 94 fL (80-100); Mean Platelet Volume 9.8 fL (9.1-12.4); Platelet Count 176 K/mm3 (150-400); RDW Coefficient Variation 15.4 % (11.7-14.2); RDW Standard Deviation 52.7 fL (35.1-46.3); Red Blood Cell Count 3.71 M/mm3 (4.30-5.90); White Blood Cell Count 13.65 K/mm3 (4.00-11.30)
[2024-09-10 11:01] LABS: Magnesium, Blood 1.3 mg/dL (1.6-2.4)
[2024-09-10 11:03] LABS: Albumin, Blood 2.5 g/dL (3.4-5.0); Albumin/Globulin Ratio 0.7 (0.8-1.8); Bilirubin, Total 0.4 mg/dL (0.1-1.0); Bun/Creatinine Ratio 28.4 (12.0-20.0); Calcium, Blood 8.3 mg/dL (8.5-10.1); Creatinine, Blood 0.81 mg/dL (0.60-1.20); Globulin, Blood 3.7 g/dL (2.2-4.0); Phosphorus, Blood 0.9 mg/dL (2.5-4.9); Potassium, Blood 3.8 mmol/L (3.5-5.5); Total Protein, Blood 6.2 g/dL (6.4-8.2)
[2024-09-10 11:16] LABS: BAND PERCENT MAN 33 % (0-8); BASOPHILS PERCENT MAN 0 % (0-2); EOSINOPHILS PERCENT MAN 0 % (0-6); LYMPHOCYTES ABSOLUTE MAN 0.27 K/mm3 (0.84-5.20); LYMPHOCYTES PERCENT MAN 2 % (21-46); MONOCYTES ABSOLUTE MAN 0.13 K/mm3 (0.16-1.47); MONOCYTES PERCENT MAN 1 % (4-13); MYELOCYTE ABSOLUTE MAN 0.13 K/mm3 (0.00-0.00); MYELOCYTE PERCENT MAN 1 % (0-0); SEG NEUTROPHILS PERCENT MAN 63 % (41-73); TOTAL CELLS COUNTED 100
[2024-09-10 11:20] LABS: International Normalized Ratio 1.17; Prothrombin Time Results 12.4 Sec (9.7-11.5)
[2024-09-10 12:13] LABS: Source, Urine Clean Catch
[2024-09-10] MEDS ORDERED: Vancomycin HCL 1,250 MG in NS 250 ML IV ONE (12:20)
[2024-09-10] MEDS ORDERED: Meropenem 2,000 MG in NS 250 ML IV ONE ×2 (12:45→16:00)
[2024-09-10 12:46] LABS: Appearance, Urine Bloody (Clear); Bilirubin, Urine Neg (Neg); Blood, Urine 5+ (Neg); Color, Urine Red (P-Yellow); Glucose Qualitative, Urine Neg (Neg); Ketones, Urine Neg (Neg); Leukocyte Esterase, Urine 2+ (Neg); Nitrite, Urine Neg (Neg); Protein, Urine 4+ (Neg); Specific Gravity, Urine 1.015 (1.003-1.022); Urobilinogen, Urine NORM (Normal); pH, Urine 6.5 (5.0-8.0)
[2024-09-10 12:47] LABS: Bacteria Many /hpf; Red Blood Cells, Urine TNTC /hpf (0-2)
[2024-09-10 12:48] LABS: White Blood Cells, Urine 50-100 /hpf (0-5)
[2024-09-10 12:49] LABS: Mucus Light (0-Heavy); Squamous Epithelial Cells Few /hpf (Few)
[2024-09-10] MEDS ORDERED: Lactated Ringer's 1,000 ML IV SCH (13:10)
[2024-09-10] MEDS ORDERED: FLU VACC TS2024-25(6MOS UP)/PF 45 MCG/0.5 ML SYRINGE IM ONE (13:10)
[2024-09-10] MEDS ORDERED: Mag Sulfate 1 GM/D5% 100ML 100 ML IV STA (13:24)
[2024-09-10] MEDS ORDERED: Lactated Ringer's 1,000 ML IV ONE ×3 (13:56→19:15)
[2024-09-10] MEDS ORDERED: Sodium Phosphate 20 MM in NS 500 ML IV SCH (14:00)
--- NOTE | 2024-09-10 17:44 | NUR ---
PT ARRIVED FROM ER W/ HYPOTENSION ON A DILT GTT AT 10. IT WAS TITRATIED DOWN TO 5 SHORTLY AFTER ARRIVING TO THE ROOM. CHIEF MAINTENANCE SUPERVISOR CALLED DR. CHAMBERS ABOUT BP AND HE WANTED TO D/C THE DILT AND SWITCH TO AMIO. PT REMAINS HYPOTENSIVE AT THIS TIME. LR, ABX, AND NAPHOS INFUSING PER EMAR. PT LAYING SUPINE IN BED. CHIEF MAINTENANCE SUPERVISOR CALLED LAB ABOUT LA REDRAW THAT WAS NOT DONE. THEY STATED THEY WERE GONNA SEND SOMEONE DOWN. PT HAS A GUNN DRAINING TO GRAVITY. TEA/MAROON COLOR IN BAG. SOME BLEEDING NOTED AROUND URETHRA. NOTE STG 2 PRESSURE SORE ON PT BUTTOCKS AND UNSTAGEABLE SORE TO PT'S RIGHT HEEL. DR. CHAMBERS MADE AWARE. SEE NOTES FOR UPDATES.
--- NOTE | 2024-09-10 18:52 | NUR ---
FLIGHT CREW TIME CLERK TAVO CALLED DR. CHAMBERS ABOUT LA TRENDING UP TO 7.9. HE WANTS THE CUREENT BAG OF LR INCREASE TO THE RATE OF 150ML/HR. PT'S HILARIO UPDATED ON CARE.
--- NOTE | 2024-09-10 19:27 | NUR ---
TAVO GRIFFIN RN CALLED NIGHT HOSPITALIST ABOUT ONGOING HYPOTENSION. PT WAS MOVED TO ICU 11, REPEAT BMP, LA, AND PHOS ORDERED AFTER A 1L LR BOLUS. REMAINING FLUIDS WILL BE GIVEN AT 150ML/HR. PT'S HILARIO WAS UPDATED ON THE TRANSFER TO ICU 11. REPORT WAS GIVEN TO EMILY LONG RN. NO FURTHER NOTES. FROM THIS RN.
--- NOTE | 2024-09-10 19:49 | NUR ---
INTAKE NOTE PT TRANSFERRED TO ICU FROM PCU DUE TO LOW BLOOD PRESSURES AND ABNORMAL LAB VALUES. PT ASSESSMENT STARTED BY THIS NURSE. UPON ASSESSING MANAGER DEVELOPMENTAL STRENTH, ARM STRENGTH, THIS NURSE NOTED LEFT SIDED DEFECITS. PHYSICIAN WAS NOTIFIED. ORDERS AT THIS TIME ARE TO TRY AND STABALIZE BLOOD PRESSURE AND THEN TAKE TO CT FOR A HEAD CT.
[2024-09-10] MEDS ORDERED: Apixaban 5 MG Tab PO SCH (21:00)
[2024-09-10 23:13] LABS: Bun/Creatinine Ratio 25.9 (12.0-20.0); Calcium, Blood 7.8 mg/dL (8.5-10.1); Creatinine, Blood 1.16 mg/dL (0.60-1.20); Potassium, Blood 3.9 mmol/L (3.5-5.5)
[2024-09-10 23:14] LABS: Phosphorus, Blood 4.3 mg/dL (2.5-4.9)
[2024-09-11] VITALS (36 sets, daily range): BP systolic 90–135; BP diastolic 46–82
[2024-09-11] MEDS ORDERED: Meropenem 1,000 MG in NS 100 ML IV SCH
[2024-09-11 04:07] LABS: Hematocrit 29.8 % (37.0-53.0); Hemoglobin 10.4 g/dL (13.5-17.5); Mean Corpuscular HGB 31.7 pg (26.0-34.0); Mean Corpuscular HGB Conc 34.9 g/dL (31.5-36.5); Mean Corpuscular Volume 91 fL (80-100); Platelet Count 141 K/mm3 (150-400); RDW Coefficient Variation 15.7 % (11.7-14.2); RDW Standard Deviation 51.8 fL (35.1-46.3); Red Blood Cell Count 3.28 M/mm3 (4.30-5.90); White Blood Cell Count 25.58 K/mm3 (4.00-11.30)
[2024-09-11 04:24] LABS: Albumin, Blood 2.2 g/dL (3.4-5.0); Anion Gap 12 mmol/L (3-11); Blood Urea Nitrogen 30 mg/dL (8-24); Bun/Creatinine Ratio 31.1 (12.0-20.0); CO2, Blood 24 mmol/L (21-32); Calcium, Blood 7.8 mg/dL (8.5-10.1); Chloride, Blood 102 mmol/L (98-108); Creatinine, Blood 0.97 mg/dL (0.60-1.20); Glomerular Filtration Rate 81 (60-); Glucose, Blood 174 mg/dL (70-99); Magnesium, Blood 1.6 mg/dL (1.6-2.4); Potassium, Blood 3.5 mmol/L (3.5-5.5); Sodium, Blood 134 mmol/L (136-145)
--- NOTE | 2024-09-11 06:55 | NUR ---
SHIFT SUMMARY PT HAS TOLERATED NIGHT WELL. BLOOD PRESSURE REMAINED WITHIN NORMAL LIMITS AND DID NOT NEED TO INITIATE NOREPINEPHRINE. PT AWOKE THIS MORNING FAR MORE CLEAR AND AWAKE THAN AT BEGINNING OF SHIFT. PTS INFORMED OF OVERNIGHT EVENTS. WILL CONTINUE TO MONITOR UNTIL REPORT PASSED TO DAY SHIFT.
[2024-09-11] MEDS ORDERED: Timolol 0.25% Opth Soln 5 ml BOTHEYES SCH (09:00)
[2024-09-11] MEDS ORDERED: Aspirin 81 MG TabEC PO SCH (09:00)
[2024-09-11] MEDS ORDERED: Dicyclomine HCl 20 MG Tab PO SCH (09:00)
[2024-09-11] MEDS ORDERED: Enoxaparin 40 MG/0.4 ML SYR SC SCH (09:00)
[2024-09-11] MEDS ORDERED: Baclofen 10 MG Tab PO SCH (09:00)
[2024-09-11] MEDS ORDERED: Metoprolol Succinate 25 MG TABCR PO SCH (09:00)
[2024-09-11] MEDS ORDERED: Cholestyramine 4 GM PKT PO SCH (09:00)
[2024-09-11] MEDS ORDERED: Spironolactone 25 MG Tab PO SCH (09:00)
--- NOTE | 2024-09-11 10:13 | NUR ---
THIS RN ASSUMED CARE OF PT AT 0700. PT IS ALERT AND ORIENTED X4, CALLS APPROPRIATELY. DR. CHAMBERS RESTARTED HOME MEDS THIS AM. PT HEART RATE IS IN THE 100s, BLOOD PRESSURE STABLE AT 116/61 MAP OF 75. PT DENIES CHEST PAIN. PT IS ON ROOM AIR SATTING >95%, PT DENIES SHORTNESS OF BREATH. PT DOES HAVE GUNN CATHETER IN DRAINING TO GRAVITY. DR. CHAMBERS WILL RESTART INSULIN. PT DOES HAVE LEFT SIDED DEFICIT FROM MS. NO OTHER INTERVENTIONS AT THIS TIME. PLAN OF CARE CONTINUED.
--- NOTE | 2024-09-11 12:16 | NUR ---
PT TRANSFERED TO U 20, REPORT HAS BEEN CALLED AND (HILARIO) HAS BEEN NOTIFIED OF THE CHANGE.
--- NOTE | 2024-09-11 13:30 | NUR ---
UPDATE: Pt arrived to room PCU 20 in [facility] bed. VSS. LS diminished. HR irregular, in afib, rate controlled on amio gtt. Pt oriented to room and unit. Call light given to patient, he assures he is able to use it without issues. WIll monitor Pt.
[2024-09-11] MEDS ORDERED: Acetaminophen 325 MG TABLET PO PRN (15:50)
--- NOTE | 2024-09-11 17:25 | NUR ---
Shift Summary Assumed care of patient at approx 1450. Reviewed tele with sinus tach with 1st degree block, Dr Francis notified, continue ammio gtt to completion. Febrile this evening, notified Dr francis, new order for tylenol. No other acute changes noted. Will continue to monitor.
[2024-09-11] MEDS ORDERED: Latanoprost 0.005% Opth Soln 2.5 ML BOTHEYES SCH (21:00)
[2024-09-12] VITALS (8 sets, daily range): BP systolic 107–122; BP diastolic 50–70
[2024-09-12 05:05] LABS: Hemoglobin 10.4 g/dL (13.5-17.5); Mean Corpuscular HGB 31.7 pg (26.0-34.0); Mean Corpuscular HGB Conc 34.7 g/dL (31.5-36.5); Mean Corpuscular Volume 92 fL (80-100); Mean Platelet Volume 10.4 fL (9.1-12.4); Platelet Count 111 K/mm3 (150-400); RDW Coefficient Variation 15.4 % (11.7-14.2); RDW Standard Deviation 51.6 fL (35.1-46.3); Red Blood Cell Count 3.28 M/mm3 (4.30-5.90); White Blood Cell Count 13.58 K/mm3 (4.00-11.30)
[2024-09-12 05:45] LABS: Albumin, Blood 2.2 g/dL (3.4-5.0); Anion Gap 9 mmol/L (3-11); Blood Urea Nitrogen 18 mg/dL (8-24); Bun/Creatinine Ratio 24.1 (12.0-20.0); CO2, Blood 27 mmol/L (21-32); Chloride, Blood 100 mmol/L (98-108); Creatinine, Blood 0.75 mg/dL (0.60-1.20); Glomerular Filtration Rate 94 (60-); Glucose, Blood 140 mg/dL (70-99); Magnesium, Blood 1.8 mg/dL (1.6-2.4); Potassium, Blood 3.6 mmol/L (3.5-5.5); Sodium, Blood 132 mmol/L (136-145)
[2024-09-12] MEDS ORDERED: Levothyroxine Sodium 0.1 MG Tab PO SCH (06:00)
[2024-09-12] MEDS ORDERED: Levothyroxine Sodium 0.025 MG Tab PO SCH (06:00)
[2024-09-12] MEDS ORDERED: Omeprazole 20 MG CapCR PO SCH (06:00)
[2024-09-12] MEDS ORDERED: Metoprolol Succinate 25 MG TABCR PO SCH (09:00)
--- NOTE | 2024-09-12 12:08 | NUR ---
THIS RN TOOK OVER CARE FOR THE PT AROUND 1100 THIS MORNING. REPORT FROM [facility] [employer] COATING EQUIPMENT TENDER. PT IS ALERT AND ORIENTED, BEDREST W/ Q2 TURN, AND MEDICAL STATUS WITHOUT TELE. THE PT HAD BEDBATH FORM THE DICER OPERATOR'S WHILE THIS RN WAS GETTING REPORT FROM [place]. HE IS ON RA AND DENIES ANY SOB. SP02 >93% ON RA. THIS RN DID CHANGED THE DRESSING ON THE PT'S BOTTOM. NONADHEART DRESSING IN PLACE WITH TEGADERM AND FOAM TAPING HOLDING IT INTACT. DR. CHAMBERS CAME TO SEE THE PT AND SPOKE WITH THE PT'S ON THE PHONE. WHILE IN THE ROOM DR. CHAMBERS DID ORDER KPHOS PO BIDM STARTING AT 1700. SEE NOTES FOR UPDATES.
[2024-09-12] MEDS ORDERED: Potassium Phosphate,Monobasic 500 MG Tablet PO SCH (17:00)
[2024-09-12] MEDS ORDERED: Insulin Glargine-Yfgn 100 Unit/mL 3 ML SYR SC SCH (21:00)
[2024-09-13 04:53] LABS: Hematocrit 31.4 % (37.0-53.0); Hemoglobin 10.3 g/dL (13.5-17.5); Mean Corpuscular HGB 30.7 pg (26.0-34.0); Mean Corpuscular HGB Conc 32.8 g/dL (31.5-36.5); Mean Corpuscular Volume 94 fL (80-100); Mean Platelet Volume 10.9 fL (9.1-12.4); Platelet Count 116 K/mm3 (150-400); RDW Coefficient Variation 15.3 % (11.7-14.2); RDW Standard Deviation 52.4 fL (35.1-46.3); Red Blood Cell Count 3.35 M/mm3 (4.30-5.90); White Blood Cell Count 12.63 K/mm3 (4.00-11.30)
[2024-09-13 05:17] LABS: Albumin, Blood 2.2 g/dL (3.4-5.0); Anion Gap 9 mmol/L (3-11); Blood Urea Nitrogen 18 mg/dL (8-24); Bun/Creatinine Ratio 25.8 (12.0-20.0); CO2, Blood 24 mmol/L (21-32); Calcium, Blood 8.3 mg/dL (8.5-10.1); Chloride, Blood 103 mmol/L (98-108); Glomerular Filtration Rate 96 (60-); Glucose, Blood 143 mg/dL (70-99); Magnesium, Blood 1.9 mg/dL (1.6-2.4); Phosphorus, Blood 2.2 mg/dL (2.5-4.9); Potassium, Blood 4.2 mmol/L (3.5-5.5); Sodium, Blood 132 mmol/L (136-145)
--- NOTE | 2024-09-13 06:29 | NUR ---
SHIFT SUMMARY PT TOLERATED SHIFT WELL. WAS ABLE TO STAY OFF OF BACK FOR BEGINNING OF SHIFT WITHOUT ISSUE. PT DID NOT WANT TO STAY ON HIS SIDE DUE TO DISCOMFORT, WAS REPOSITIONED MUCH POSSIBLE TO KEEP WEIGHT OFF OF WOUNDS. PT IN GOOD SPIRITS THIS MORNING. WILL CONTINUE TO MONITOR UNTIL REPORT PASSED TO DAY SHIFT TEAM.
[2024-09-13 07:47] VITALS: BP 111/64
[2024-09-13] MEDS ORDERED: Diphenoxylat/Atrop 2.5 / 0.025MG 1 Tab PO PRN (11:35)
[2024-09-13 14:45] VITALS: BP 125/69
--- NOTE | 2024-09-13 17:33 | NUR ---
SHIFT SUMMARY PT REMAINS ALERT AND ORIENTED. BP STABLE. O2 SATS REMAIN ABOVE 90% ON RA. PT COMPLAINED OF PAIN IN NECK THAT WAS RELEIVED WITH MEDICATION ADMINISTRATION. PT'S SPOUSE STATED THAT PT TAKES LOMOTIL FIVE TIMES DAILY SCHEDULED TO COPE WITH LOOSE STOOL. PT PROVIDED LOMOTIL ORDERED. CHRONIC GUNN PATENT AND DRAINING. BED BATH PROVIDED TODAY. PT REPOSITIONED Q2H. WILL REPORT OFF TO ONCOMING RN
[2024-09-13 20:00] VITALS: BP 119/66
[2024-09-14 04:00] VITALS: BP 143/76
[2024-09-14 07:30] VITALS: BP 143/71
[2024-09-14] MEDS ORDERED: Arginine/Glutamine/Calcium Hmb 1 Packet PO SCH (09:00)
[2024-09-14 15:17] VITALS: BP 150/62
--- NOTE | 2024-09-14 17:31 | NUR ---
SHIFT SUMMARY PT REMAINS ALERT AND ORIENTED. O2 SATS REMAIN ABOVE 90% ON RA. PT COMPLAINED OF PAIN IN HIS NECK THAT WAS RELEIVED WITH MEDICATION ADMINISTRATION. GUNN PATENT AND DRAINING. URINE WAS PINK TINGED THIS AM, BUT HAS CLEARED TO YELLOW THIS AFTERNOON. NO BM THIS SHIFT. PT REPOSITIONED Q2H. LEGS ELEVATED ON PILLOWS AND HEAL PROTECTORS ON. SPOUSE UPDATED THIS SHIFT. WILL REPORT OFF TO ONCOMING RN
[2024-09-14 20:38] VITALS: BP 140/60
[2024-09-15 04:19] VITALS: BP 130/58
--- NOTE | 2024-09-15 05:29 | NUR ---
PT RESTED COMFORTABLY, DENIES PAIN OR DISCOMFORT. RT MIDLINE FLUSHING, NO BLOOD RETURN NOTED. GUNN DRAINING WITHOUT DIFFICULTY, YELLOW URINE NOTED, SLIGHT SEDIMENT NOTED IN BAG. PT REPOSTIONED BUT REFUSED TO TURN COMPLETELY ON EITHER SIDE. PT EDUCATED ON NEED TO RELIEVE PRESSURE TO BOTTOM, WILL CONTINUE TO MONITOR
[2024-09-15 06:40] LABS: Hematocrit 30.6 % (37.0-53.0); Mean Corpuscular HGB 30.4 pg (26.0-34.0); Mean Corpuscular HGB Conc 32.7 g/dL (31.5-36.5); Mean Corpuscular Volume 93 fL (80-100); Platelet Count 189 K/mm3 (150-400); RDW Coefficient Variation 15.7 % (11.7-14.2); RDW Standard Deviation 53.4 fL (35.1-46.3); Red Blood Cell Count 3.29 M/mm3 (4.30-5.90); White Blood Cell Count 17.05 K/mm3 (4.00-11.30)
[2024-09-15 07:04] LABS: Albumin, Blood 2.2 g/dL (3.4-5.0); Anion Gap 10 mmol/L (3-11); Blood Urea Nitrogen 33 mg/dL (8-24); Bun/Creatinine Ratio 44.8 (12.0-20.0); CO2, Blood 27 mmol/L (21-32); Calcium, Blood 8.8 mg/dL (8.5-10.1); Chloride, Blood 103 mmol/L (98-108); Creatinine, Blood 0.74 mg/dL (0.60-1.20); Glomerular Filtration Rate 94 (60-); Glucose, Blood 198 mg/dL (70-99); Magnesium, Blood 1.8 mg/dL (1.6-2.4); Phosphorus, Blood 3.3 mg/dL (2.5-4.9); Potassium, Blood 4.7 mmol/L (3.5-5.5); Sodium, Blood 135 mmol/L (136-145)
[2024-09-15 07:58] VITALS: BP 119/61
[2024-09-15 15:26] VITALS: BP 103/57
--- NOTE | 2024-09-15 17:01 | NUR ---
SHIFT SUMMARY PT REMAINS ALERT AND ORIENTED. BP STABLE. O2 SATS REMAIN ABOVE 90% ON RA. PT DENIES ANY PAIN THIS SHIFT. BED BATH PROVIDED THIS SHIFT. PT REPOSITIONED Q2H. WOUND TO COCCYX CLEANSED. WOUND TO HEAL CLEANED AND OPEN TO AIR. HEAL PROTECTORS ON WHEN LEGS NOT ELEVATED ON PILLOWS. GUNN PATENT AND DRAINIG CLEAR YELLOW URINE. PT AWAITING SNF PLACEMENT. WILL REPORT OFF TO ONCOMING LOUISA
[2024-09-15] MEDS ORDERED: Vancomycin HCL 2,500 MG in NS 500 ML IV ONE (17:20)
[2024-09-15 20:00] VITALS: BP 123/65
[2024-09-16 04:18] VITALS: BP 116/56
[2024-09-16 05:06] LABS: Hematocrit 29.1 % (37.0-53.0); Hemoglobin 9.7 g/dL (13.5-17.5); Mean Corpuscular HGB 30.9 pg (26.0-34.0); Mean Corpuscular HGB Conc 33.3 g/dL (31.5-36.5); Mean Corpuscular Volume 93 fL (80-100); Mean Platelet Volume 10.4 fL (9.1-12.4); Platelet Count 249 K/mm3 (150-400); RDW Coefficient Variation 15.6 % (11.7-14.2); RDW Standard Deviation 53.1 fL (35.1-46.3); Red Blood Cell Count 3.14 M/mm3 (4.30-5.90)
[2024-09-16 05:26] LABS: Bun/Creatinine Ratio 41.8 (12.0-20.0); Calcium, Blood 8.5 mg/dL (8.5-10.1); Creatinine, Blood 0.72 mg/dL (0.60-1.20); Potassium, Blood 4.4 mmol/L (3.5-5.5)
[2024-09-16 05:38] LABS: BAND PERCENT MAN 1 % (0-8); BASOPHILS PERCENT MAN 0 % (0-2); EOSINOPHILS ABSOLUTE MAN 0.13 K/mm3 (0.00-0.68); EOSINOPHILS PERCENT MAN 1 % (0-6); LYMPHOCYTES ABSOLUTE MAN 3.91 K/mm3 (0.84-5.20); LYMPHOCYTES PERCENT MAN 29 % (21-46); METAMYELOCYTE ABSOLUTE MAN 0.13 K/mm3 (0.00-0.00); METAMYELOCYTE PERCENT MAN 1 % (0-0); MONOCYTES ABSOLUTE MAN 0.81 K/mm3 (0.16-1.47); MONOCYTES PERCENT MAN 6 % (4-13); MYELOCYTE ABSOLUTE MAN 0.13 K/mm3 (0.00-0.00); MYELOCYTE PERCENT MAN 1 % (0-0); NEUTROPHILS ABSOLUTE MAN 8.23 K/mm3 (1.96-9.15); SEG NEUTROPHILS PERCENT MAN 60 % (41-73); TOTAL CELLS COUNTED 100
[2024-09-16 05:39] LABS: PLASMA CELL ABSOLUTE MAN 0.13 K/mm3 (0.00-0.00); PLASMA CELLS PERCENT MAN 1 % (0-0)
--- NOTE | 2024-09-16 05:59 | NUR ---
PT RESTED COMFORTABLY, DENIES PAIN. REFUSED TO ALLOW COMPLETE SIDE TO SIDE TURNING BUT DID ALLOW ELEVATION OF EXTREMITIES. PT EDUCATED R/T NEED TO TAKE PRESSURE OFF OF BOTOM. CALL LIGHT IN REACH, GUNN DRAINING YELLOW URINE, MINIMAL SEDIMENT NOTED
[2024-09-16] MEDS ORDERED: Vancomycin HCL 1,500 MG in NS 250 ML IV SCH (06:00)
--- NOTE | 2024-09-16 07:10 | NUR ---
ASSUMPTION OF CARE: THIS RN TO ASSUME CARE OF PT FROM DIRECTOR SOCIAL SERVICE RN. PT LAYING IN BED WITH HEAD AT 30 DEGREES WITH EQUAL NONLABORED RESIRATIONS. IV ABX CONTINUES. PT NOT IN ANY DISTRESS AT THIS TIME AND DENIES ANY NEEDS OR COMPLAINTS. CALL LIGHT IN REACH.
[2024-09-16 09:25] VITALS: BP 124/60
[2024-09-16 15:47] VITALS: BP 109/59
--- NOTE | 2024-09-16 18:54 | NUR ---
SHIFT SUMMARY: NO SIGNIFICANT EVENTS HAPPENED DURING THIS SHIFT. PLAN FOR PT TO DC TO [facility] WITH IV ABX. PT HAS REMAINED FREE OF CP OR SOB. SOCRATES ANY COMPLAINTS. WILL CONTINUE TO CARE FOR PT TILL END OF SHIFT.
[2024-09-16 20:44] VITALS: BP 140/62
[2024-09-16] MEDS ORDERED: Lactobacil 2-S.Thermo-Bifido 1 1 Cap PO SCH (21:00)
[2024-09-17 00:24] VITALS: BP 127/60
[2024-09-17 03:25] VITALS: BP 116/68
[2024-09-17 04:05] LABS: Hematocrit 30.1 % (37.0-53.0); Hemoglobin 10.2 g/dL (13.5-17.5); Mean Corpuscular HGB Conc 33.9 g/dL (31.5-36.5); Mean Corpuscular Volume 92 fL (80-100); Mean Platelet Volume 9.9 fL (9.1-12.4); Platelet Count 313 K/mm3 (150-400); RDW Coefficient Variation 15.5 % (11.7-14.2); RDW Standard Deviation 51.8 fL (35.1-46.3); Red Blood Cell Count 3.29 M/mm3 (4.30-5.90); White Blood Cell Count 12.78 K/mm3 (4.00-11.30)
[2024-09-17 04:26] LABS: Bun/Creatinine Ratio 50.7 (12.0-20.0); Calcium, Blood 8.7 mg/dL (8.5-10.1); Creatinine, Blood 0.63 mg/dL (0.60-1.20); Potassium, Blood 4.2 mmol/L (3.5-5.5)
[2024-09-17 04:31] LABS: BAND PERCENT MAN 2 % (0-8); BASOPHILS ABSOLUTE MAN 0.12 K/mm3 (0.00-0.23); BASOPHILS PERCENT MAN 1 % (0-2); EOSINOPHILS ABSOLUTE MAN 0.25 K/mm3 (0.00-0.68); EOSINOPHILS PERCENT MAN 2 % (0-6); LYMPHOCYTES ABSOLUTE MAN 3.96 K/mm3 (0.84-5.20); LYMPHOCYTES PERCENT MAN 31 % (21-46); MONOCYTES ABSOLUTE MAN 1.02 K/mm3 (0.16-1.47); MONOCYTES PERCENT MAN 8 % (4-13); MYELOCYTE ABSOLUTE MAN 0.38 K/mm3 (0.00-0.00); MYELOCYTE PERCENT MAN 3 % (0-0); NEUTROPHILS ABSOLUTE MAN 7.02 K/mm3 (1.96-9.15); SEG NEUTROPHILS PERCENT MAN 53 % (41-73); TOTAL CELLS COUNTED 100
--- NOTE | 2024-09-17 05:18 | NUR ---
SHIFT SUMMARY PT A&O X4, CALM, COOPERTIVE TO CARE. HR IN THE 100'S-120'S WITH A FEW RUNS OF RVR IN THE 150'S. HE DENIES ANY CP/PRESSURE, NUMB/TINGLING, SBP ELEVATED MEDICATED PER EMAR. DILT GTT WAS ON STANDBY AT START OF SHIFT, DILT GTT RESUMED AT 5. PT TOLERATING WELL, HR RANGING FROM 80'S-110'S, WORSE WITH EXERTION AND ONCE FULLY AWAKE. PT O2 >92%, PT ON RA AT BASELINE, PT WAS ON 2L AT START OF SHIFT UNTIL CPAP ARRIVED. PT WAS DESATING TO THE LOW 60'S WITH SLEEP. RT BROUGHT CPAP TO ROOM. CPAP PLACED ON PT. PT REPORTS HE GETS ANXIOUS WITH THE CPAP. PT WAS WAKING UP IN A PANIC AND DESATING/HR INCREASING TO THE 150'S AFTER WAKNG UP. CALL PLACED TO RESIDENT AND ADVISED THEM OF THIS. PRN ANXIETY MED ORDERED. PT TOLERAED CPAP BETTER AFTER ANXIETY MEDICATION. PT HAS PUREWICK IN PLACE, PUREWICK LEAKING AND LINENS/PUREWICK REPLACED. PT RESTING IN BED AT THIS TIME. WILL MONITOR PT AND REPORT TO ONCOMING RN.
--- NOTE | 2024-09-17 05:31 | NUR ---
SHIFT SUMMARY P A&O X4, CALM, COOPERATIVE TO CARE. PT WITH HX OF MS, SHAKEY/WEAK EXTREMETIES. HR IN THE 80'S, SBP STABLE, DENIES CP/PRESSURE, NUMB/TINGLING. PT IS MEDICAL STATUS WITH NO TELE. O2 >92% ON RA, DENIES SOB. HE HAS CHRONIC INDWELLNG CATH IN PLACE. DRAINING TO GRAVITY. NO ACUTE CHANGES T/O SHIFT. PT RESTING IN BED AT THIS TIME. WILL MONITOR PT AND REPORT TO ONCOMING RN.
[2024-09-17 07:33] VITALS: BP 118/64
[2024-09-17] MEDS ORDERED: MEROPENEM114 IV (10:29)
[2024-09-17] MEDS ORDERED: VISBIOME 112.51 EACH PO (10:29)
--- NOTE | 2024-09-17 12:10 | NUR ---
DISHCARGE NOTE: REPORT CALLED TO JAKE JASSO AT [facility] FOR REPORT. BELONGINGS WERE COLLECTED AND TAKE TO FACILITY WITH PT VIA EMS. FAMILY WAS NOTIFIED OF TRANSFER. PT SENT WITH KERVINGLLUCIA TO [facility] FOR IV ABX. NO SIGNIFICANT EVENTS HAPPENED DURING THIS SHIFT.
== END 2024-09-17 12:11 | DRG 698 ==
LOC: ER 09:40 → PCU 13:05 → ICUE 13:05 → PCU 17:03 → ICUE 19:20 → PCU 09-11 12:12
PROVIDERS: Internal Medicine; Nurse Practitioner Acute Care; Student in an Organized Health Care Education/Training Program; ADMIT Internal Medicine
DX: T83.511A Infection and inflammatory reaction due to indwelling urethral catheter, initial encounter (principal); A41.9 Sepsis, unspecified organism; R65.20 Severe sepsis without septic shock; R53.2 Functional quadriplegia; E87.20 Acidosis, unspecified; Z16.12 Extended spectrum beta lactamase (ESBL) resistance; G35 Multiple sclerosis; E03.9 Hypothyroidism, unspecified; F32.A Depression, unspecified; K21.9 Gastro-esophageal reflux disease without esophagitis; E78.5 Hyperlipidemia, unspecified; J45.909 Unspecified asthma, uncomplicated; H40.9 Unspecified glaucoma; Y84.6 Urinary catheterization as the cause of abnormal reaction of the patient, or of later complication, without mention of misadventure at the time of the procedure; I48.91 Unspecified atrial fibrillation; E83.39 Other disorders of phosphorus metabolism; E83.42 Hypomagnesemia; N39.0 Urinary tract infection, site not specified; I35.1 Nonrheumatic aortic (valve) insufficiency; Z96.642 Presence of left artificial hip joint; E66.9 Obesity, unspecified; E11.9 Type 2 diabetes mellitus without complications; L89.302 Pressure ulcer of unspecified buttock, stage 2; Z88.1 Allergy status to other antibiotic agents; Z88.8 Allergy status to other drugs, medicaments and biological substances; Z91.018 Allergy to other foods; Z74.01 Bed confinement status; Z86.19 Personal history of other infectious and parasitic diseases; Z86.16 Personal history of COVID-19; Z86.711 Personal history of pulmonary embolism; Z99.3 Dependence on wheelchair; Z98.890 Other specified postprocedural states; Z90.49 Acquired absence of other specified parts of digestive tract; Z68.32 Body mass index [BMI] 32.0-32.9, adult
CPT/HCPCS: 36415; 36416; 71045; 80048; 80053; 80069; 81001; 82947; 83605; 83735; 84100; 84145; 84484; 85025; 85027; 85610; 85730; 86850; 86900; 86901; 87040; 87077; 87086; 87147; 87186; 93005; 93010; 96365; 96375; 97110; 97162; 99285-25; A9270; C1751; J0282; J0696; J1815; J2185; J3370; J3475; J7040; J7050; J7060; J7120